=== PATIENT | female | born 1955 | race Caucasian/White ===

== ENCOUNTER 2017-03-18 13:56 | Observation (INO) | payer OTHER ==
[~2017-03-18] VITALS: Ht 167.6 cm; Wt 47.9 kg
[~2017-03-18 13:56] MED LIST: ASPI325T39 PO; DIAZ-165 PO; DTR5 PO; HYCUDL5 PO; IBUP-1050 PO; NRV/5 PO
[2017-03-18 15:50] VITALS: BP 103/65; PULSE 68; Ht 167.6 cm; Wt 47.9 kg
[2017-03-18] MEDS ORDERED: ACETAMINOPHEN 325 MG TAB PO PRN (16:00)
[2017-03-18] MEDS ORDERED: ONDANSETRON INJ 2 MG/ML 2 ML VIAL IV PRN (16:00)
[2017-03-18 16:35] LABS: HEMATOCRIT 37.5 % (37-47); MEAN CELL VOLUME 90.6 fL (80-100); MEAN CORPUSCULAR HEMOGLOBIN 30.7 pg (25-34); MEAN CORPUSCULAR HGB CONC 33.9 g/dl (32-36); MEAN PLATELET VOLUME 10.1 fL (7.4-10.4); PLATELET COUNT 279 K/uL (130-400); RED BLOOD COUNT 4.14 M/uL (4.2-5.4); WHITE BLOOD COUNT 5.36 K/uL (4.8-10.8)
[2017-03-18] MEDS: SODIUM CHLORIDE 0.9% 1000ML 1,000 ML IV SCH (16:40)
[2017-03-18 16:57] LABS: BUN/CREATININE RATIO 55.7 (10-20); CALCIUM 9.7 mg/dl (8.5-10.1); CREATININE 0.46 mg/dl (0.60-1.20)
[2017-03-18] MEDS ORDERED: LAVAGE SOLUTION 4000ML PO SCH (17:30)
[2017-03-18] MEDS ORDERED: VITACAP26 PO (19:23)
[2017-03-18] MEDS ORDERED: CHOL1CAP67 PO (19:23)
[2017-03-18] MEDS ORDERED: OMEG10007 PO (19:23)
[2017-03-18] MEDS ORDERED: GLUCTAB7 PO (19:23)
[2017-03-18] MEDS ORDERED: DIAZEPAM 5MG TAB PO PRN (19:30)
--- NOTE | 2017-03-18 20:14 | History and Physical ---
History & Physical Date & Time of Service: Mar 18, 2017 at 16:33 Chief Complaint: Colon Cancer Primary Care Physician: Alisha Plaza M.D. History of Present Illness Source: patient, spouse Pt is 61 y/o F with PMH MS, colon CA presents as direct admission for colonoscopy prep. Pt is scheduled for colonoscopy tomorrow morning. Reports didn 't tolerate prep well in past. Pt wheelchair bound secondary to MS. Hx chronic LE edema, no hx CHF. Denies any current complaints. Has been on clear fluids since yesterday. Denies fever/chills, diaphoresis, N/V/D/C, melena, hematochezia , CRAFT, dizziness, syncope, vision changes, neck pain, CP, SOB, orthopnea, palpitations, cough, sore throat, choking, rhinorrhea, abdominal pain, paresthesias, worsening extremity weakness, rashes, urinary symptoms. Past Medical/Surgical History Medical Problems: (1) Cecal cancer Status: Chronic (2) Hypokalemia Status: Resolved (3) Pneumonia Status: Resolved Surgical Problems: (1) History of partial colectomy Permanent Comment: 2012 - [facility] [place] Dr Osman Lr Status: Resolved (2) Hx of appendectomy Status: Resolved (3) Hx of tubal ligation Status: Resolved Family History FH: CAD (coronary artery disease) MOTHER (angioplasty age 62) FH: cancer FATHER (colon, liver, prostate) Hypertension MOTHER Stroke GRANDMOTHER Social History Smoking Status: Never Smoker Smokeless Tobacco Use: No Alcohol Use: none Drug Use: none Marital Status: Housing status: lives with significant other Occupational Status: disabled Immunizations History of Influenza Vaccine: No History of Tetanus Vaccine?: Yes History of Pneumococcal: No History of Hepatitis B Vaccine: No Multi-Drug Resistant Organisms History of MDRO: No Allergies Coded Allergies: Statins (Verified Allergy, Mild, SHORTNESS OF BREATH, 01/24/16) CHEPE Inhibitors (Unverified Allergy, Unknown, SHORTNESS OF BREATH, 01/24/16 ) PT DOES NOT THINK STATINS WAS A ALLERGY Penicillins (Verified Allergy, Unknown, 01/24/16) Home Medications Scheduled Amlodipine Besylate (Amlodipine Besylate), 5 MG PO DAILY Cholecalciferol (Vitamin D-3), 1 CAP PO DAILY Dheyccisisf-Jmjgfzbmgwp-Mib C- (Glucosamine Chondroitin), 500 MG PO DAILY Ibuprofen (Advil), 200 MG PO DAILY Oxybutynin Chloride (Oxybutynin Chloride), 5 MG PO QID Vitamins C & E (Vitamin C), 1,000 MG PO DAILY Scheduled PRN Diazepam (Valium), 5 MG PO TID PRN for SPASCITY Miscellaneous Medications Fish Oil ([place]-3), 1 CAP PO Review of Systems Constitutional: + weakness (Hx MS), No fever, No chills, No sweats, No weight loss, No problem reported Eyes: No worsening of vision, No eye pain, No redness ENT: No unusual epistaxis, No nasal symptoms, No sore throat, No trouble swallowing Respiratory: No cough, No sputum, No wheezing, No shortness of breath Cardiovascular: No chest pain, No orthopnea, No PND Abdomen: No pain, No nausea, No vomiting, No diarrhea, No constipation Psychiatric: + insomnia, No depression symptoms, No anxiety Endocrine: No excessive thirst Hematologic / Lymphatic: + problem reported, No abnormal bleeding/bruising, No clotting problems Integumentary: + color change, No rash, No itch Physical Exam Vital Signs Date Time Temp Pulse Resp B/P (MAP) Pulse Ox O2 Delivery O2 Flow Rate FiO2 03/18/17 15:50 68 18 103/65 Room Air 97 General Appearance: WD/WN, no apparent distress Head: normocephalic, atraumatic Eyes: normal inspection, sclerae normal ENT: hearing grossly normal, pharynx normal Neck: supple, no JVD, trachea midline Respiratory/Chest: chest non-tender, lungs clear, normal breath sounds, no respiratory distress, no accessory muscle use Cardiovascular: regular rate, rhythm, no murmur, normal peripheral pulses Abdomen/GI: normal bowel sounds, non tender, soft Extremities/Musculoskelatal: normal capillary refill, + pedal edema (moderate to bilateral lower extremities, non-tender), + pertinent finding (limited ROM R arm and bilateral lower extremities) Neurologic/Psych: alert, normal mood/affect, oriented x 3 Skin: normal color, warm/dry Diagnostics Laboratory Results Last 24 Hours Test 03/18/17 16:17 White Blood Count 5.36 K/uL Red Blood Count 4.14 M/uL Hemoglobin 12.7 g/dL Hematocrit 37.5 % Mean Corpuscular Volume 90.6 fL Mean Corpuscular Hemoglobin 30.7 pg Mean Corpuscular Hemoglobin Concent 33.9 g/dl RDW Standard Deviation 50.8 fL RDW Coefficient of Variation 15.5 % Platelet Count 279 K/uL Mean Platelet Volume 10.1 fL Sodium Level 143 mmol/L Potassium Level 4.0 mmol/L Chloride Level 107 mmol/L Carbon Dioxide Level 29 mmol/L Anion Gap 7.0 mmol/L Blood Urea Nitrogen 26 mg/dl Creatinine 0.46 mg/dl Est Creatinine Clear Calc Drug Dose 100.6 ml/min Estimated GFR () 122.7 Estimated GFR (Non- 105.9 BUN/Creatinine Ratio 55.7 Random Glucose 81 mg/dl Calcium Level 9.7 mg/dl Hepatitis C Antibody Screen NEG Impression Assessment and Plan HX CECAL CA - COLONOSCOPY PREP Pt with hx intolerance to colonoscopy prep in past and hx MS. Colonoscopy prep in hospital today with colonoscopy scheduled for tomorrow with Dr Washington. -clear liquids today & NPO after midnight -Golytely prep -Fleet enema in am prior to colonoscopy if rectal effluent is not clear -NSS @ 75ml/hr MULTIPLE SCLEROSIS -continue Valium prn spasticity DVT PROPHYLAXIS -SCD DISPOSITION -admit obs med/surg -Full Code as per discussion with pt -Follows with Dr Plaza for routine care Pt was seen with Dr Pearl. See addendum ADDENDUM: This is a 61 year old female with a PMH of MS, cecal CA presents for a planned colonoscopy. She was brought in for bowel prep to monitor for weakness or MS flare. No other symptoms at this time Go-lytely started give IVFs enema PRN in AM if not clear plan for colonoscopy in AM, GI consulted Level of Care Med/Surg Advanced Directives Existing Living Will: Yes Existing Power of Wildlife Photographer: Yes Resuscitation Status FULL RESUSCITATION VTE Prophylaxis VTE Risk Assessment Done? Y/N: Yes Risk Level: Moderate Given or contraindicated: SCD's Additional Copies To Alisha Plaza M.D.
[2017-03-18 20:21] VITALS: BP 111/76; PULSE 72; O2SAT 98
[2017-03-18] MEDS: OXYBUTYNIN CHLORIDE 5 MG TAB PO SCH (20:46)
[2017-03-18] MEDS ORDERED: IV FLUIDS COMPLETED PRN (21:00)
[2017-03-18 23:31] VITALS: BP 115/72; PULSE 74; TEMP 36.5; O2SAT 98
[2017-03-19 04:05] VITALS: BP 109/70; PULSE 79; TEMP 36.3; O2SAT 96
[2017-03-19] MEDS ORDERED: SOD PHOSPHATE/SOD BIPHOSPHATE ENEMA 132 ML BTL PR PRN (05:00)
[2017-03-19] MEDS: SODIUM CHLORIDE 0.9% 1000ML 1,000 ML IV SCH (06:24)
[2017-03-19 07:24] VITALS: BP 117/73; PULSE 81; TEMP 36.4; O2SAT 95
[2017-03-19] MEDS ORDERED: SOD PHOSPHATE/SOD BIPHOSPHATE ENEMA 132 ML BTL PR STA (08:50)
--- NOTE | 2017-03-19 09:11 | Progress Note ---
Progress Note Date of Service Mar 19, 2017. Progress Note GI was to complete a colonoscopy today. Less than 1/4 of PO prep was consumed. Had one enema with formed stools this AM. Pt had another enema at 1000 with formed stool. No plan for colonoscopy today as pt is having formed stools. Pt was specifically admitted for a colonoscopy prep arranged through her PCP. GI can perform colonoscopy when the patient is adequately prepped for procedure. Will defer to the hospitalist team how they wish to proceed with admission. ALISTAIR Ardon
[2017-03-19] MEDS: OXYBUTYNIN CHLORIDE 5 MG TAB PO SCH ×4 (09:29→20:16)
[2017-03-19] MEDS: AMLODIPINE BESYLATE 5 MG TAB PO SCH (09:29)
[2017-03-19 10:57] VITALS: BP 117/73; PULSE 75; TEMP 36.4; O2SAT 97
--- NOTE | 2017-03-19 13:27 | Progress Note ---
Internal Med Progress Note Date of Service: Mar 19, 2017. 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 ASSESSMENT & PLAN: HX CECAL CA - COLONOSCOPY PREP Pt with hx intolerance to colonoscopy prep in past and hx MS. Colonoscopy prep in hospital today with colonoscopy scheduled for tomorrow with Dr Washington. -clear liquids today & NPO after midnight -Golytely prep was given -Fleet enema in am prior to colonoscopy if rectal effluent is not clear -NSS @ 75ml/hr -preparation was not good enough -colonoscopy deferred for today 03/19 -will get the appropriate preparation today and likely scope tomorrow MULTIPLE SCLEROSIS -continue Valium prn spasticity -wheelchair bound -no acute symptoms DVT PROPHYLAXIS -SCD DISPOSITION -admit obs med/surg -Full Code as per discussion with pt -Follows with Dr Plaza for routine care Vital Signs: Date Time Temp Pulse Resp B/P (MAP) Pulse Ox O2 Delivery O2 Flow Rate FiO2 03/19/17 10:57 36.4 75 18 117/73 (88) 97 03/19/17 07:52 Room Air 03/19/17 07:24 36.4 81 16 117/73 (88) 95 Room Air 03/19/17 04:05 36.3 79 18 109/70 (83) 96 Room Air 03/19/17 00:05 Room Air 03/18/17 23:31 36.5 74 18 115/72 (86) 98 Room Air 03/18/17 20:21 72 18 111/76 (88) 98 Room Air 03/18/17 16:00 Room Air 03/18/17 15:50 68 18 103/65 Room Air 97 Lab Results: Results Past 24 Hours Test 03/18/17 16:17 Range/Units White Blood Count 5.36 4.8-10.8 K/uL Red Blood Count 4.14 4.2-5.4 M/uL Hemoglobin 12.7 12.0-16.0 g/dL Hematocrit 37.5 37-47 % Mean Corpuscular Volume 90.6 80-100 fL Mean Corpuscular Hemoglobin 30.7 25-34 pg Mean Corpuscular Hemoglobin Concent 33.9 32-36 g/dl RDW Standard Deviation 50.8 36.4-46.3 fL RDW Coefficient of Variation 15.5 11.5-14.5 % Platelet Count 279 130-400 K/uL Mean Platelet Volume 10.1 7.4-10.4 fL Sodium Level 143 136-145 mmol/L Potassium Level 4.0 3.5-5.1 mmol/L Chloride Level 107 98-107 mmol/L Carbon Dioxide Level 29 21-32 mmol/L Anion Gap 7.0 3-11 mmol/L Blood Urea Nitrogen 26 7-18 mg/dl Creatinine 0.46 0.60-1.20 mg/dl Est Creatinine Clear Calc Drug Dose 100.6 ml/min Estimated GFR () 122.7 Estimated GFR (Non- 105.9 BUN/Creatinine Ratio 55.7 10-20 Random Glucose 81 70-99 mg/dl Calcium Level 9.7 8.5-10.1 mg/dl Hepatitis C Antibody Screen NEG NEG
[2017-03-19] MEDS ORDERED: BISACODYL 5 MG TABEC PO ONE ×2 (15:00→17:00)
[2017-03-19] MEDS ORDERED: LAVAGE SOLUTION 4000ML PO SCH (15:00)
[2017-03-19 15:41] VITALS: BP 136/78; PULSE 85; TEMP 36.2; O2SAT 97
[2017-03-19] MEDS ORDERED: POLYETHYLENE (MIRALAX) 17 GM PACK PO ONE (17:00)
[2017-03-19 20:49] VITALS: BP 132/80; PULSE 88; O2SAT 96
[2017-03-19] MEDS ORDERED: D5W AND 1/2NSS 1,000 ML IV SCH (21:30)
[2017-03-19 23:47] VITALS: BP 113/69; PULSE 92; TEMP 36.4; O2SAT 97
[2017-03-20 03:17] VITALS: BP 126/72; PULSE 82; TEMP 36.5; O2SAT 95
[2017-03-20] MEDS ORDERED: POLYETHYLENE (MIRALAX) 17 GM PACK PO ONE (05:00)
[2017-03-20 07:28] VITALS: BP 99/62; PULSE 79; TEMP 36.4; O2SAT 98
[2017-03-20] MEDS: OXYBUTYNIN CHLORIDE 5 MG TAB PO SCH ×2 (08:00→11:51)
--- NOTE | 2017-03-20 09:01 | Endo History and Physical ---
History & Physical Date of Service: Mar 20, 2017. Chief Complaint: history of colon cancer Referring Physician: Dr. Plaza History of Present Illness h/o colon cancer cecum 2012 - s/p resection Past Medical History MS Past Surgical History Hx Cardiac Surgery: No Hx Abdominal Surgery: Yes (appy; tubal) Hx Post-Op Nausea and Vomiting: No Hx Cancer Surgery: No Hx Thoracic Surgery: No Hx Orthopedic: No Hx Urinary Tract Surgery: No Family History Colon CA father Social History Smoking Status: Never Smoker Smokeless Tobacco Use: No Hx Substance Use: Yes Hx Alcohol Use: No Allergies Coded Allergies: Statins (Verified Allergy, Mild, SHORTNESS OF BREATH, 01/24/16) CHEPE Inhibitors (Unverified Allergy, Unknown, SHORTNESS OF BREATH, 01/24/16 ) PT DOES NOT THINK STATINS WAS A ALLERGY Penicillins (Verified Allergy, Unknown, 01/24/16) Current Medications Reported Home Medications Medications Dose Route/Sig Max Daily Dose Days Date Category Glucosamine Chondroitin (Myvenlyfsdf-Qkpkxrhlcoj-Hbc C-) 1 Tab Tab 500 Mg PO DAILY 03/18/17 Reported Vitamin D-3 (Cholecalciferol) 1,000 Unit Cap 1 Cap PO DAILY 03/18/17 Reported Vitamin C (Vitamins C & E) 1 Cap Cap 1,000 Mg PO DAILY 03/18/17 Reported [place]-3 (Fish Oil) 1 Ea Cap 1 Cap PO 03/18/17 Reported Advil (Ibuprofen) 200 Mg Tab 200 Mg PO DAILY 01/24/16 Reported Amlodipine Besylate 5 Mg Tab 5 Mg PO DAILY 04/13/14 Reported Oxybutynin Chloride 5 Mg Tab 5 Mg PO QID 04/13/14 Reported Valium (Diazepam) 5 Mg Tab 5 Mg PO TID PRN 05/19/07 Reported Vital Signs Weight (Kilograms): 47.900 Height (Feet): 5 Height (Inches): 6.00 Date Time Temp Pulse Resp B/P (MAP) Pulse Ox O2 Delivery O2 Flow Rate FiO2 03/20/17 08:56 36.5 82 20 112/64 (80) 93 Room Air 03/20/17 07:28 36.4 79 18 99/62 (74) 98 03/20/17 03:17 36.5 82 18 126/72 (90) 95 Room Air 03/20/17 00:00 Room Air 03/19/17 23:47 36.4 92 20 113/69 (84) 97 Room Air 03/19/17 20:49 88 18 132/80 (97) 96 Room Air 03/19/17 16:15 Room Air 03/19/17 15:41 36.2 85 18 136/78 (97) 97 Room Air 03/19/17 10:57 36.4 75 18 117/73 (88) 97 Physical Exam General Appearance: WD/WN, no apparent distress Assessment and Plan Colonoscopy today
[2017-03-20] MEDS ORDERED: ATROPINE SULFATE 0.1 MG/ML 5ML SYR IV PRN (09:30)
[2017-03-20] MEDS ORDERED: LIDOCAINE HCL 2% 2 ML VIAL (20MG/ML) ONE (09:30)
[2017-03-20] MEDS ORDERED: EpHEDrine SULFATE INJ 50 MG/ML AMP IV PRN (09:30)
[2017-03-20] MEDS ORDERED: PROPOFOL IV EMULSION 10 MG/ML 20 ML VIAL IV ONE (09:30)
--- NOTE | 2017-03-20 09:38 | GI REPORT ---
Procedure Date: 03/20/2017 9:12 AM Procedure: Colonoscopy Indications: High risk colon cancer surveillance: Personal history of colon cancer in cecum 2012 s/p resection, Family history of colon cancer in parent Medicines: Propofol per Anesthesia Complications: No immediate complications. Estimated blood loss: None. Estimated Blood Loss: Estimated blood loss: none. Procedure: Pre-Anesthesia Assessment: - Prior to the procedure, a History and Physical was performed, and patient medications, allergies and sensitivities were reviewed. The patient's tolerance of previous anesthesia was reviewed. - The risks and benefits of the procedure and the sedation options and risks were discussed with the patient. All questions were answered and informed consent was obtained. - Patient identification and proposed procedure were verified prior to the procedure by the physician and the nurse. The procedure was verified in the pre-procedure area in the procedure room. - Mental Status Examination: alert and oriented. Airway Examination: normal oropharyngeal airway and neck mobility. Respiratory Examination: clear to auscultation. CV Examination: normal. Abdominal Examination: bowel sounds present, abdomen soft and non-tender, no masses or organomegaly noted. - ASA Grade Assessment: IV - A patient with severe systemic disease that is a constant threat to life. After I obtained informed consent, the scope was passed under direct vision. Throughout the procedure, the patient's blood pressure, pulse, and oxygen saturations were monitored continuously. The scope was introduced through the anus and advanced to the ileocolonic anastomosis. The colonoscopy was performed without difficulty. The patient tolerated the procedure well. The quality of the bowel preparation was good. Findings: The perianal and digital rectal examinations were normal. Pertinent negatives include normal sphincter tone and no palpable rectal lesions. The maria guadalupe-terminal ileum appeared normal. There was evidence of a prior end-to-side ileo-colonic anastomosis in the ascending colon. This was patent and was characterized by visible sutures. The anastomosis was traversed. The exam was otherwise without abnormality. The retroflexed view of the distal rectum and anal verge was normal and showed no anal or rectal abnormalities. Impression: - The examined portion of the ileum was normal. - Patent end-to-side ileo-colonic anastomosis, characterized by visible sutures. - The examination was otherwise normal. - The distal rectum and anal verge are normal on retroflexion view. - No specimens collected. Recommendation: - Repeat colonoscopy in 3 years for surveillance. - Return to referring physician as previously scheduled. - Discharge patient to home. Portia T. Suvock, D.O. Portia Washington, 03/20/2017 9:37:59 AM This report has been signed electronically. Note Initiated On: 03/20/2017 9:12 AM I attest to the content of the Intraoperative Record and orders documented therein, exceptions below
--- NOTE | 2017-03-20 09:44 | Anesthesiology Progress Note ---
Anesthesia Post Op Note Date & Time Mar 20, 2017 at 09:44 Vital Signs Pain Intensity: 0 Vital Signs Past 12 Hours Date Time Temp Pulse Resp B/P (MAP) Pulse Ox O2 Delivery O2 Flow Rate FiO2 03/20/17 09:29 74 20 99/61 (74) 97 Room Air 03/20/17 08:56 36.5 82 20 112/64 (80) 93 Room Air 03/20/17 08:30 Room Air 97 03/20/17 07:28 36.4 79 18 99/62 (74) 98 03/20/17 03:17 36.5 82 18 126/72 (90) 95 Room Air 03/20/17 00:00 Room Air 03/19/17 23:47 36.4 92 20 113/69 (84) 97 Room Air Notes Mental Status: alert / awake / arousable, participated in evaluation Pt Amnestic to Procedure: Yes Nausea / Vomiting: adequately controlled Pain: adequately controlled Airway Patency, RR, SpO2: stable & adequate BP & HR: stable & adequate Hydration State: stable & adequate Anesthetic Complications: no major complications apparent
[2017-03-20 10:08] VITALS: BP 123/77; PULSE 77; TEMP 36.4; O2SAT 94
[2017-03-20 11:19] VITALS: BP 124/76; PULSE 78; TEMP 36.4; O2SAT 95
--- NOTE | 2017-03-20 11:34 | Progress Note ---
Internal Med Progress Note Date of Service: Mar 20, 2017. 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 ASSESSMENT & PLAN: HX CECAL CA - COLONOSCOPY PREP Pt with hx intolerance to colonoscopy prep in past and hx MS. Colonoscopy prep in hospital today with colonoscopy scheduled for tomorrow with Dr Washington. -clear liquids today & NPO after midnight -Golytely prep was given -Fleet enema in am prior to colonoscopy if rectal effluent is not clear -NSS @ 75ml/hr -preparation was not good enough -colonoscopy deferred for today 03/19 -will get the appropriate preparation today and likely scope tomorrow -S/P Colonoscopy ::Negative for any Polyps /bleeding -repeat Colonoscopy in 3 years -tolerating diet -will discharge home today -discussed with the MULTIPLE SCLEROSIS -continue Valium prn spasticity -wheelchair bound -no acute symptoms DVT PROPHYLAXIS -SCD DISPOSITION -admit obs med/surg -Full Code as per discussion with pt -Follows with Dr Plaza for routine care-appointment made -Discharge home today Vital Signs: Date Time Temp Pulse Resp B/P (MAP) Pulse Ox O2 Delivery O2 Flow Rate FiO2 03/20/17 11:19 36.4 78 18 124/76 (92) 95 03/20/17 10:08 36.4 77 18 123/77 (92) 94 03/20/17 09:44 75 20 118/75 (89) 95 Room Air 03/20/17 09:29 74 20 99/61 (74) 97 Room Air 03/20/17 08:56 36.5 82 20 112/64 (80) 93 Room Air 03/20/17 08:30 Room Air 97 03/20/17 07:28 36.4 79 18 99/62 (74) 98 03/20/17 03:17 36.5 82 18 126/72 (90) 95 Room Air 03/20/17 00:00 Room Air 03/19/17 23:47 36.4 92 20 113/69 (84) 97 Room Air 03/19/17 20:49 88 18 132/80 (97) 96 Room Air 03/19/17 16:15 Room Air 03/19/17 15:41 36.2 85 18 136/78 (97) 97 Room Air
--- NOTE | 2017-03-20 11:37 | Discharge Instructions ---
Discharge Instructions Date of Service Mar 20, 2017. Admission Reason for Admission: Colon Cancer Discharge Discharge Diagnosis / Problem: H/O Ca Colon s/o Colonoscopy Discharge Goals Goal(s): Prevent Disease Progression Activity Recommendations Activity Limitations: resume your previous activity . Instructions / Follow-Up Instructions / Follow-Up Dr Plaza on 03/25/17 at 10:25AM Current Hospital Diet Patient's current hospital diet: Regular Diet Discharge Diet Recommended Diet: Regular Diet Procedures Procedures Performed: COLONOSCOPY Pending Studies Studies pending at discharge: no Medical Emergencies . Who to Call and When: Medical Emergencies: If at any time you feel your situation is an emergency, please call 911 immediately. . Non-Emergent Contact Non-Emergency issues call your: Primary Care Provider . Past History Medical & Surgical History: (1) Multiple sclerosis (2) Cecal cancer (3) Colonoscopy planned . "Provider Documentation" section prepared by Barbie Hernandez. . VTE Core Measure Inpt VTE Proph given/why not?: SCD's
[2017-03-20 11:40] VITALS: BP 124/76; PULSE 78; TEMP 36.4; O2SAT 95
[2017-03-20] MEDS: AMLODIPINE BESYLATE 5 MG TAB PO SCH (11:51)
--- NOTE | 2017-03-21 07:49 | Discharge Summary ---
Discharge Summary Date of Service Mar 21, 2017. Discharge Summary Admission Date: Mar 18, 2017 at 15:02 Discharge Date: Mar 20, 2017 Discharge Disposition: Home Principal Diagnosis: H/O Ca Colon s/o Colonoscopy Secondary Diagnoses/Problems: Please see H&P and Hospital progress note Procedures: Colonoscopy Consultations: GI Medication Reconciliation Continued Medications: Amlodipine Besylate (Amlodipine Besylate) 5 Mg Tab 5 MG PO DAILY, #90 Cholecalciferol (Vitamin D-3) 1,000 Unit Cap 1 CAP PO DAILY Diazepam (Valium) 5 Mg Tab 5 MG PO TID PRN for SPASCITY, 0 Refills Fish Oil ([place]-3) 1 Ea Cap 1 CAP PO, CAP Stpgwcprlhv-Qaqgqnworvy-Joa C- (Glucosamine Chondroitin) 1 Tab Tab 500 MG PO DAILY Ibuprofen (Advil) 200 Mg Tab 200 MG PO DAILY, TAB Oxybutynin Chloride (Oxybutynin Chloride) 5 Mg Tab 5 MG PO QID, #360 Vitamins C & E (Vitamin C) 1 Cap Cap 1000 MG PO DAILY Admission Information HPI (per Admitting provider): Pt is 61 y/o F with PMH MS, colon CA presents as direct admission for colonoscopy prep. Pt is scheduled for colonoscopy tomorrow morning. Reports didn 't tolerate prep well in past. Pt wheelchair bound secondary to MS. Hx chronic LE edema, no hx CHF. Denies any current complaints. Has been on clear fluids since yesterday. Denies fever/chills, diaphoresis, N/V/D/C, melena, hematochezia , CRAFT, dizziness, syncope, vision changes, neck pain, CP, SOB, orthopnea, palpitations, cough, sore throat, choking, rhinorrhea, abdominal pain, paresthesias, worsening extremity weakness, rashes, urinary symptoms. Past Medical/Surgical History Medical Problems: (1) Cecal cancer Status: Chronic (2) Hypokalemia Status: Resolved (3) Pneumonia Status: Resolved Surgical Problems: (1) History of partial colectomy Permanent Comment: 2012 - [facility] [place] Dr Osman Lr Status: Resolved (2) Hx of appendectomy Status: Resolved (3) Hx of tubal ligation Status: Resolved Family History FH: CAD (coronary artery disease) MOTHER (angioplasty age 62) FH: cancer FATHER (colon, liver, prostate) Hypertension MOTHER Stroke GRANDMOTHER Social History Smoking Status: Never Smoker Smokeless Tobacco Use: No Alcohol Use: none Drug Use: none Marital Status: Housing status: lives with significant other Occupational Status: disabled Immunizations History of Influenza Vaccine: No History of Tetanus Vaccine?: Yes History of Pneumococcal: No History of Hepatitis B Vaccine: No Multi-Drug Resistant Organisms History of MDRO: No Allergies Coded Allergies: Statins (Verified Allergy, Mild, SHORTNESS OF BREATH, 01/24/16) CHEPE Inhibitors (Unverified Allergy, Unknown, SHORTNESS OF BREATH, 01/24/16 ) PT DOES NOT THINK STATINS WAS A ALLERGY Penicillins (Verified Allergy, Unknown, 01/24/16) Home Medications Scheduled Amlodipine Besylate (Amlodipine Besylate), 5 MG PO DAILY Cholecalciferol (Vitamin D-3), 1 CAP PO DAILY Hxskhcxijxu-Hmvzsjjupaf-Ohp C- (Glucosamine Chondroitin), 500 MG PO DAILY Ibuprofen (Advil), 200 MG PO DAILY Oxybutynin Chloride (Oxybutynin Chloride), 5 MG PO QID Vitamins C & E (Vitamin C), 1,000 MG PO DAILY Scheduled PRN Diazepam (Valium), 5 MG PO TID PRN for SPASCITY Miscellaneous Medications Fish Oil ([place]-3), 1 CAP PO Review of Systems Constitutional: + weakness (Hx MS), No fever, No chills, No sweats, No weight loss, No problem reported Eyes: No worsening of vision, No eye pain, No redness ENT: No unusual epistaxis, No nasal symptoms, No sore throat, No trouble swallowing Respiratory: No cough, No sputum, No wheezing, No shortness of breath Cardiovascular: No chest pain, No orthopnea, No PND Abdomen: No pain, No nausea, No vomiting, No diarrhea, No constipation Psychiatric: + insomnia, No depression symptoms, No anxiety Endocrine: No excessive thirst Hematologic / Lymphatic: + problem reported, No abnormal bleeding/bruising, No clotting problems Integumentary: + color change, No rash, No itch Physical Ex - H&P Physical Exam Vital Signs Date Time Temp Pulse Resp B/P (MAP) Pulse Ox O2 Delivery O2 Flow Rate FiO2 03/18/17 15:50 68 18 103/65 Room Air 97 General Appearance: WD/WN, no apparent distress Head: normocephalic, atraumatic Eyes: normal inspection, sclerae normal ENT: hearing grossly normal, pharynx normal Neck: supple, no JVD, trachea midline Respiratory/Chest: chest non-tender, lungs clear, normal breath sounds, no respiratory distress, no accessory muscle use Cardiovascular: regular rate, rhythm, no murmur, normal peripheral pulses Abdomen/GI: normal bowel sounds, non tender, soft Extremities/Musculoskelatal: normal capillary refill, + pedal edema (moderate to bilateral lower extremities, non-tender), + pertinent finding (limited ROM R arm and bilateral lower extremities) Neurologic/Psych: alert, normal mood/affect, oriented x 3 Skin: normal color, warm/dry Diagnostics - H&P Diagnostics Laboratory Results Last 24 Hours Test 03/18/17 16:17 White Blood Count 5.36 K/uL Red Blood Count 4.14 M/uL Hemoglobin 12.7 g/dL Hematocrit 37.5 % Mean Corpuscular Volume 90.6 fL Mean Corpuscular Hemoglobin 30.7 pg Mean Corpuscular Hemoglobin Concent 33.9 g/dl RDW Standard Deviation 50.8 fL RDW Coefficient of Variation 15.5 % Platelet Count 279 K/uL Mean Platelet Volume 10.1 fL Sodium Level 143 mmol/L Potassium Level 4.0 mmol/L Chloride Level 107 mmol/L Carbon Dioxide Level 29 mmol/L Anion Gap 7.0 mmol/L Blood Urea Nitrogen 26 mg/dl Creatinine 0.46 mg/dl Est Creatinine Clear Calc Drug Dose 100.6 ml/min Estimated GFR () 122.7 Estimated GFR (Non- 105.9 BUN/Creatinine Ratio 55.7 Random Glucose 81 mg/dl Calcium Level 9.7 mg/dl Hepatitis C Antibody Screen NEG Impression - H&P Impression Assessment and Plan HX CECAL CA - COLONOSCOPY PREP Pt with hx intolerance to colonoscopy prep in past and hx MS. Colonoscopy prep in hospital today with colonoscopy scheduled for tomorrow with Dr Washington. -clear liquids today & NPO after midnight -Golytely prep -Fleet enema in am prior to colonoscopy if rectal effluent is not clear -NSS @ 75ml/hr MULTIPLE SCLEROSIS -continue Valium prn spasticity DVT PROPHYLAXIS -SCD DISPOSITION -admit obs med/surg -Full Code as per discussion with pt -Follows with Dr Plaza for routine care Pt was seen with Dr Pearl. See addendum ADDENDUM: This is a 61 year old female with a PMH of MS, cecal CA presents for a planned colonoscopy. She was brought in for bowel prep to monitor for weakness or MS flare. No other symptoms at this time Go-lytely started give IVFs enema PRN in AM if not clear plan for colonoscopy in AM, GI consulted Level of Care Med/Surg Advanced Directives Existing Living Will: Yes Existing Power of Attorney Recruiter: Yes Resuscitation Status FULL RESUSCITATION VTE Prophylaxis VTE Risk Assessment Done? Y/N: Yes Risk Level: Moderate Given or contraindicated: SCD's Additional Copies To Alisha Plaza M.D. Physical Exam (per Admitting): General Appearance: WD/WN, no apparent distress Head: normocephalic, atraumatic Eyes: normal inspection, sclerae normal ENT: hearing grossly normal, pharynx normal Neck: supple, no JVD, trachea midline Respiratory/Chest: chest non-tender, lungs clear, normal breath sounds, no respiratory distress, no accessory muscle use Cardiovascular: regular rate, rhythm, no murmur, normal peripheral pulses Abdomen/GI: normal bowel sounds, non tender, soft Extremities/Musculoskelatal: normal capillary refill, + pedal edema ( moderate to bilateral lower extremities, non-tender), + pertinent finding ( limited ROM R arm and bilateral lower extremities) Neurologic/Psych: alert, normal mood/affect, oriented x 3 Skin: normal color, warm/dry Hospital Course HX CECAL CA - COLONOSCOPY PREP Pt with hx intolerance to colonoscopy prep in past and hx MS. Colonoscopy prep in hospital today with colonoscopy scheduled for tomorrow with Dr Washington. -clear liquids today & NPO after midnight -Golytely prep was given -Fleet enema in am prior to colonoscopy if rectal effluent is not clear -NSS @ 75ml/hr -preparation was not good enough -colonoscopy deferred for today 03/19 -will get the appropriate preparation today and likely scope tomorrow -S/P Colonoscopy ::Negative for any Polyps /bleeding -repeat Colonoscopy in 3 years -tolerating diet -will discharge home today -discussed with the MULTIPLE SCLEROSIS -continue Valium prn spasticity -wheelchair bound -no acute symptoms DVT PROPHYLAXIS -SCD DISPOSITION -admit obs med/surg -Full Code as per discussion with pt -Follows with Dr Plaza for routine care-appointment made -Discharge home today Total time spent on discharge = 35 minutes This includes examination of the patient, discharge planning, medication reconciliation, and communication with other providers. Discharge Instructions Date of Service Mar 20, 2017. Admission Reason for Admission: Colon Cancer Discharge Discharge Diagnosis / Problem: H/O Ca Colon s/o Colonoscopy Discharge Goals Goal(s): Prevent Disease Progression Activity Recommendations Activity Limitations: resume your previous activity . Instructions / Follow-Up Instructions / Follow-Up Dr Plaza on 03/25/17 at 10:25AM Current Hospital Diet Patient's current hospital diet: Regular Diet Discharge Diet Recommended Diet: Regular Diet Procedures Procedures Performed: COLONOSCOPY Pending Studies Studies pending at discharge: no Medical Emergencies . Who to Call and When: Medical Emergencies: If at any time you feel your situation is an emergency, please call 911 immediately. . Non-Emergent Contact Non-Emergency issues call your: Primary Care Provider . Past History Medical & Surgical History: (1) Multiple sclerosis (2) Cecal cancer (3) Colonoscopy planned . "Provider Documentation" section prepared by Barbie Hernandez. . VTE Core Measure Inpt VTE Proph given/why not?: SCD's <Electronically signed by Barbie Hernandez M.D.> Signed: 03/20/17 [id number] Additional Copies To Alisha Plaza M.D.
== END 2017-03-20 15:00 | disposition home or self-care (01) ==
LOC: C.4E 15:02
PROVIDERS: ADMIT Family Medicine; ATTEND Internal Medicine
DX: Z12.11 Encounter for screening for malignant neoplasm of colon (principal); Z85.038 Personal history of other malignant neoplasm of large intestine; Z80.0 Family history of malignant neoplasm of digestive organs; Z98.0 Intestinal bypass and anastomosis status; G35 Multiple sclerosis; R60.0 Localized edema; Z79.899 Other long term (current) drug therapy

== ENCOUNTER 2017-07-14 11:46 | Inpatient (IN) | payer OTHER ==
[~2017-07-14] VITALS: Ht 165.1 cm; Wt 40.3 kg
[~2017-07-14 11:46] MED LIST changes: -ASPI325T39 PO; +CHOL1CAP67 PO; +GLUCTAB7 PO; -HYCUDL5 PO; +OMEG10007 PO; +VITACAP26 PO
[2017-07-14] MEDS ORDERED: PRENTAB26 PO (13:55)
[2017-07-14] MEDS ORDERED: SULF800T23 PO (13:55)
--- NOTE | 2017-07-14 15:11 | EMERGENCY ROOM VISIT NOTE ---
History First contact with patient: 14:22 Chief Complaint: URINARY SYMPTOMS Stated Complaint: UTI, VERY TIRED, NOT EATING OR DRINKING Nursing Triage Summary: found out she had uti on . taking antibiotics for uti. friday around 2pm took 1 dose of medical marijuana and has been lethargic since. hasnt wanted to eat or drink. hasnt taken anymore since that first dose History of Present Illness The patient is a 62 year old female with hx of MS (wheelchair bound) and recent UTI who presents to the Emergency Room with complaints of increased tiredness and decreased appetite x 4 days. Pt was diagnosed with UTI after pt appeared more confused to on last week. Pt was started on Bactrim by PCP. Pt took 3 doses and did not have any issues . The following day (Friday) she received her first dose of medical marijuana for MS and appeared more tired/ sleepy and not eating/drinking as much. PCP was called and pt was brought here for concern of dehydration. Denies sob, cp, n/v, abd pain, d/c, dysuria or increased urinary frequency (urinated at least 2 times in the past 24hrs). Of note: pt also having rhinorrhea of undetermined etiology x 1 month for which is taking OTC non-drowsy anti-histamine. Review of Systems see below Constitutional: No fever, No chills ENT: + nasal symptoms (rhinorrhea) Respiratory: No shortness of breath Cardiovascular: No chest pain Abdomen: + problem reported (decreased appetite ), No pain, No nausea, No vomiting, No diarrhea, No constipation Genitourinary - Female: No dysuria, No urinary frequency Neurologic: + problem reported (increased tiredness) Past Medical/Surgical History Medical Problems: (1) Cecal cancer (2) Colonoscopy planned (3) Hypokalemia (4) Pneumonia Surgical Problems: (1) History of partial colectomy (2) Hx of appendectomy (3) Hx of tubal ligation Family History FH: CAD (coronary artery disease) MOTHER (angioplasty age 62) FH: cancer FATHER (colon, liver, prostate) Hypertension MOTHER Stroke GRANDMOTHER Social History Smoking Status: Never Smoker Alcohol Use: occasionally Drug Use: none Marital Status: Housing Status: lives with family Occupation Status: disabled Current/Historical Medications Scheduled Amlodipine Besylate (Amlodipine Besylate), 5 MG PO DAILY Jxjqvfprajl-Hzijbbnhfta-Vio C- (Glucosamine Chondroitin), 500 MG PO DAILY Multivit/Min/Iron/Fol Ac/Pren ( Vitamin), 1 TAB PO DAILY Sulfa/Trimethoprim (Bactrim Ds 800MG/160MG), 1 TAB PO BID Scheduled PRN Diazepam (Valium), 5 MG PO TID PRN for SPASCITY Physical Exam Vital Signs Date Time Temp Pulse Resp B/P (MAP) Pulse Ox O2 Delivery O2 Flow Rate FiO2 07/14/17 17:01 87 16 115/74 93 Room Air 07/14/17 15:25 89 13 133/80 94 Room Air 07/14/17 14:16 87 9 92 07/14/17 14:01 131/77 07/14/17 13:47 90 07/14/17 13:46 89 17 94 07/14/17 13:43 91 18 133/80 93 Room Air 07/14/17 13:42 133/80 07/14/17 11:56 101 18 157/85 96 Room Air Physical Exam see below General Appearance: no apparent distress, + pertinent finding (tired appearing ) Head: normocephalic, atraumatic Eyes: normal inspection ENT: + nasal congestion (active nasal drainage) Respiratory/Chest: lungs clear, normal breath sounds Cardiovascular: regular rate, rhythm, no murmur Abdomen / GI: normal bowel sounds, non tender, soft Back: normal inspection, no CVA tenderness Extremities: no calf tenderness, no pedal edema Neurologic/Psych: alert, + pertinent finding (oriented to person, reports at [facility] (old hospital name), reports 2007 but knows its friday and july ) Medical Decision & Procedures Laboratory Results 07/14/17 15:25 Red Blood Count 4.15, Mean Corpuscular Volume 89.9, Mean Corpuscular Hemoglobin 32.0, Mean Corpuscular Hemoglobin Concent 35.7, Mean Platelet Volume 11.1, Neutrophils (%) (Auto) 77.5, Lymphocytes (%) (Auto) 15.3, Monocytes (%) (Auto) 6.8, Eosinophils (%) (Auto) 0.1, Basophils (%) (Auto) 0.1, Neutrophils # (Auto) 6.72, Lymphocytes # (Auto) 1.33, Monocytes # (Auto) 0.59, Eosinophils # (Auto) 0.01, Basophils # (Auto) 0.01 07/14/17 15:25 Test 07/14/17 15:25 07/14/17 15:39 07/14/17 15:45 White Blood Count 8.68 K/uL (4.8-10.8) Red Blood Count 4.15 M/uL (4.2-5.4) Hemoglobin 13.3 g/dL (12.0-16.0) Hematocrit 37.3 % (37-47) Mean Corpuscular Volume 89.9 fL (80-100) Mean Corpuscular Hemoglobin 32.0 pg (25-34) Mean Corpuscular Hemoglobin Concent 35.7 g/dl (32-36) Platelet Count 219 K/uL (130-400) Mean Platelet Volume 11.1 fL (7.4-10.4) Neutrophils (%) (Auto) 77.5 % Lymphocytes (%) (Auto) 15.3 % Monocytes (%) (Auto) 6.8 % Eosinophils (%) (Auto) 0.1 % Basophils (%) (Auto) 0.1 % Neutrophils # (Auto) 6.72 K/uL (1.4-6.5) Lymphocytes # (Auto) 1.33 K/uL (1.2-3.4) Monocytes # (Auto) 0.59 K/uL (0.11-0.59) Eosinophils # (Auto) 0.01 K/uL (0-0.5) Basophils # (Auto) 0.01 K/uL (0-0.2) RDW Standard Deviation 49.0 fL (36.4-46.3) RDW Coefficient of Variation 15.2 % (11.5-14.5) Immature Granulocyte % (Auto) 0.2 % Immature Granulocyte # (Auto) 0.02 K/uL (0.00-0.02) Anion Gap 8.0 mmol/L (3-11) Estimated GFR () 74.3 Estimated GFR (Non- 64.1 BUN/Creatinine Ratio 29.0 (10-20) Calcium Level 10.0 mg/dl (8.5-10.1) Total Bilirubin 0.3 mg/dl (0.2-1) Aspartate Amino Transf (AST/SGOT) 62 U/L (15-37) Alanine Aminotransferase (ALT/SGPT) 109 U/L (12-78) Alkaline Phosphatase 308 U/L (45-117) Total Protein 7.6 gm/dl (6.4-8.2) Albumin 3.1 gm/dl (3.4-5.0) Globulin 4.5 gm/dl (2.5-4.0) Albumin/Globulin Ratio 0.7 (0.9-2) Bedside Lactic Acid Venous 1.28 mmol/L (0.90-1.70) Urine Color YELLOW Urine Appearance TURBID (CLEAR) Urine pH 5.0 (4.5-7.5) Urine Specific [place] 1.021 (1.000-1.030) Urine Protein NEG (NEG) Urine Glucose (UA) NEG (NEG) Urine Ketones 3+ (NEG) Urine Occult Blood NEG (NEG) Urine Nitrite NEG (NEG) Urine Bilirubin NEG (NEG) Urine Urobilinogen NEG (NEG) Urine Leukocyte Esterase NEG (NEG) Urine WBC (Auto) 0 /hpf (0-5) Urine RBC (Auto) 0-4 /hpf (0-4) Urine Hyaline Casts (Auto) 0 /lpf (0-5) Urine Epithelial Cells (Auto) 0-5 /lpf (0-5) Urine Bacteria (Auto) NEG (NEG) Urine Crystals URIC ACID (NONE PRSENT) Medications Administered Medications (Trade) Dose Ordered Sig/Dari Route Start Time Stop Time Status Last Admin Dose Admin Sodium Chloride 1,000 ml @ 125 mls/hr Q8H IV 07/14/17 15:30 08/13/17 15:29 07/14/17 15:32 125 MLS/HR NS maintenance fluids 125cc/hr Medical Decision 62y/oF with hx of MS and recent E.coli UTI (being treated with bactrim - susceptible) presents with concern of decreased appetite (not eating or drinking ) and increased drowsiness/tiredness (sleeping more) x 4 days concerning for AMS in the setting of worsening UTI (unresponsive to Bactrim vs. progressive) vs. MS flare vs. head bleed vs. side effect of medical marijuana (less likely given usually increases appetite and pt has taken marijuana in the past without any side effects) or Bactrim (less likely given no other systemic symptoms such as n/v although Bactrim can cause decreased appetite). Of note: pt received 3 doses of Bactrim and 1 dose of medical marijuana prior to onset of symptoms. -PCP called: UCx grew E.coli 10-100k colonies susceptible to Bactrim -Ordered cath UA/Ucx - 3+ ketones consistent with dehydration -Ordered BCx x 2 - pending -Ordered POC lactate nl -Ordered CBC and CMP: BUN elevated at 27 and glucose 185; upward trending AST, ALT and alk phos (compared to previous LFT) concerning in the setting of previous colonic cancer and warrants further work up -Ordered CT head w/ot contrast: no hemorrhage, mass effect, or acute terrotorial ischemia -Started M-IVF NS 125cc/hr -5:17 spoke with inpatient hospitalist regarding admission for AMS of unknown etiology Medication Reconcilliation Current Medication List: was personally reviewed by me Blood Pressure Screening Patient's blood pressure: Normal blood pressure Impression Primary Impression: Multiple sclerosis Additional Impressions: Dehydration Hx: UTI (urinary tract infection) Departure Information Dispostion Admitted as an inpatient Condition FAIR Referrals Alisha Plaza M.D. (PCP) Patient Instructions My [facility] Problem Qualifiers
[2017-07-14] MEDS ORDERED: SODIUM CHLORIDE 0.9% 1000ML 1,000 ML IV SCH (15:30)
[2017-07-14 15:49] LABS: BASO % 0.1 %; BASO ABS # 0.01 K/uL (0-0.2); EOS % 0.1 %; EOS ABS # 0.01 K/uL (0-0.5); HEMATOCRIT 37.3 % (37-47); HEMOGLOBIN 13.3 g/dL (12.0-16.0); IG# 0.02 K/uL (0.00-0.02); LYMPH % 15.3 %; LYMPH ABS # 1.33 K/uL (1.2-3.4); MEAN CELL VOLUME 89.9 fL (80-100); MEAN CORPUSCULAR HGB CONC 35.7 g/dl (32-36); MEAN PLATELET VOLUME 11.1 fL (7.4-10.4); MONO % 6.8 %; MONO ABS # 0.59 K/uL (0.11-0.59); NEUT % 77.5 %; NEUT ABS # 6.72 K/uL (1.4-6.5); PLATELET COUNT 219 K/uL (130-400); RED CELL DISTRIBUTION WIDTH CV 15.2 % (11.5-14.5); WHITE BLOOD COUNT 8.68 K/uL (4.8-10.8)
[2017-07-14 16:12] LABS: ALBUMIN 3.1 gm/dl (3.4-5.0); ALT/SGPT 109 U/L (12-78); AST/SGOT 62 U/L (15-37); BLOOD UREA NITROGEN 27 mg/dl (7-18); CARBON DIOXIDE 28 mmol/L (21-32); CREATININE 0.94 mg/dl (0.60-1.20); GLUCOSE 185 mg/dl (70-99); POTASSIUM 4.1 mmol/L (3.5-5.1); SODIUM 137 mmol/L (136-145)
[2017-07-14 16:15] LABS: ALKALINE PHOSPHATASE 308 U/L (45-117); TOTAL PROTEIN 7.6 gm/dl (6.4-8.2)
--- NOTE | 2017-07-14 16:47 | EMERGENCY ROOM VISIT NOTE ---
ED Visit Note First contact with patient: 14:21 Patient seen and examined at bedside after discussion with the resident. Patient with no focal complaints during my exam, awake and cooperative able to relate additional history. Awaiting labs and imaging at the time of my exam. Patient with some confusion here noted on exam. Patient able to answer basic questions at bedside during my assessment. Patient hemodynamically stable. The resident was able to obtain records from the recent outpatient urinalysis as well as culture results. It did show that the specimen was sensitive to Bactrim. Patient states she has been compliant with her Bactrim usage. Patient 's urinalysis does appear improved. Patient and family concerned that her symptoms seem to be worsening instead of improving. Please refer to the resident's notes for additional details and exam. MDM: It is unclear if this is related to the recent infection versus her history of multiple sclerosis. No other recent medication changes or infections , no other symptoms to suggest an additional occult infection. Patient's evaluation in the emergency department otherwise reassuring, patient hemodynamically stable throughout. I do not suspect bacteremia/sepsis, vascular etiology, CVA,, dysrhythmia, ACS. Patient also found to have elevated LFTs. While she has had mild elevations in the past, today's levels were significantly higher. No prior liver or biliary evaluation has been noted on review of EMR. Patient with no focal abdominal pain, however discussed with her this may need additional evaluation or possible GI consultation. Possible this is related to medications. No evidence of obstructive pathology and no presentation to suggest cholecystitis, choledocholithiasis, ascending cholangitis, or acute hepatitis. The patient does have history of malignancy, there is no known distant metastasis. Problem List Medical Problems: (1) Cecal cancer Status: Resolved (2) HTN (hypertension) Status: Chronic (3) Multiple sclerosis Status: Chronic Surgical Problems: (1) History of partial colectomy Permanent Comment: 2012 - [facility] [place] Dr Osman Lr Status: Resolved (2) Hx of appendectomy Status: Resolved (3) Hx of tubal ligation Status: Resolved Current/Historical Medications Scheduled Amlodipine Besylate (Amlodipine Besylate), 5 MG PO DAILY Ciprofloxacin (Ciprofloxacin HCl), 500 MG PO Q12H Fish Oil ([place]-3), 1 CAP PO DAILY Zhktamjrxmh-Rwtnxirbvhy-Eld C- (Glucosamine Chondroitin), 500 MG PO DAILY Multivit/Min/Iron/Fol Ac/Pren ( Vitamin), 1 TAB PO DAILY Scheduled PRN Diazepam (Valium), 5 MG PO TID PRN for SPASCITY Allergies Coded Allergies: Statins (Verified Allergy, Mild, SHORTNESS OF BREATH, 01/24/16) CHEPE Inhibitors (Unverified Allergy, Unknown, SHORTNESS OF BREATH, 01/24/16 ) PT DOES NOT THINK STATINS WAS A ALLERGY Penicillins (Verified Allergy, Unknown, 01/24/16) Vital Signs Date Time Temp Pulse Resp B/P (MAP) Pulse Ox O2 Delivery O2 Flow Rate FiO2 07/14/17 17:49 83 07/14/17 17:01 87 16 115/74 93 Room Air 07/14/17 15:25 89 13 133/80 94 Room Air 07/14/17 14:16 87 9 92 07/14/17 14:01 131/77 07/14/17 13:47 90 07/14/17 13:46 89 17 94 07/14/17 13:43 91 18 133/80 93 Room Air 07/14/17 13:42 133/80 07/14/17 11:56 101 18 157/85 96 Room Air Laboratory Results Test 07/14/17 15:25 07/14/17 15:39 07/14/17 15:45 Immature Granulocyte % (Auto) 0.2 % White Blood Count 8.68 K/uL (4.8-10.8) Red Blood Count 4.15 M/uL (4.2-5.4) Hemoglobin 13.3 g/dL (12.0-16.0) Hematocrit 37.3 % (37-47) Mean Corpuscular Volume 89.9 fL (80-100) Mean Corpuscular Hemoglobin 32.0 pg (25-34) Mean Corpuscular Hemoglobin Concent 35.7 g/dl (32-36) Platelet Count 219 K/uL (130-400) Mean Platelet Volume 11.1 fL (7.4-10.4) Neutrophils (%) (Auto) 77.5 % Lymphocytes (%) (Auto) 15.3 % Monocytes (%) (Auto) 6.8 % Eosinophils (%) (Auto) 0.1 % Basophils (%) (Auto) 0.1 % Neutrophils # (Auto) 6.72 K/uL (1.4-6.5) Lymphocytes # (Auto) 1.33 K/uL (1.2-3.4) Monocytes # (Auto) 0.59 K/uL (0.11-0.59) Eosinophils # (Auto) 0.01 K/uL (0-0.5) Basophils # (Auto) 0.01 K/uL (0-0.2) Immature Granulocyte # (Auto) 0.02 K/uL (0.00-0.02) Prothrombin Time 9.4 SECONDS (9.0-12.0) Prothromb Time International Ratio 0.9 (0.9-1.1) Activated Partial Thromboplast Time 27.0 SECONDS (21.0-31.0) Partial Thromboplastin Ratio 1.0 Bedside Lactic Acid Venous 1.28 mmol/L (0.90-1.70) Urine Color YELLOW Urine Appearance TURBID (CLEAR) Urine pH 5.0 (4.5-7.5) Urine Specific [place] 1.021 (1.000-1.030) Urine Protein NEG (NEG) Urine Glucose (UA) NEG (NEG) Urine Ketones 3+ (NEG) Urine Occult Blood NEG (NEG) Urine Nitrite NEG (NEG) Urine Bilirubin NEG (NEG) Urine Urobilinogen NEG (NEG) Urine Leukocyte Esterase NEG (NEG) Urine WBC (Auto) 0 /hpf (0-5) Urine RBC (Auto) 0-4 /hpf (0-4) Urine Hyaline Casts (Auto) 0 /lpf (0-5) Urine Epithelial Cells (Auto) 0-5 /lpf (0-5) Urine Bacteria (Auto) NEG (NEG) Urine Crystals URIC ACID (NONE PRSENT) Date/Time Source Procedure Growth Status 07/14/17 15:45 Urine , Clean Catch Urine Culture - Final NO GROWTH - LESS THAN 1,000 COLONIES/ML Complete Medications Administered Medications (Trade) Dose Ordered Sig/Dari Route Start Time Stop Time Status Last Admin Dose Admin Sodium Chloride 1,000 ml @ 125 mls/hr Q8H IV 07/14/17 15:30 07/14/17 20:33 DC 07/14/17 15:32 125 MLS/HR Departure Information Impression Primary Impression: Change in mental status Additional Impressions: UTI (urinary tract infection) Dehydration Multiple sclerosis Dispostion Being Evaluated By Hospitalist Condition GOOD Prescriptions Ciprofloxacin (Ciprofloxacin HCl) 500 Mg Tab 500 MG PO Q12H for 5 Days, #10 TAB Prov: Sharonda, Gomez,M.D. 07/16/17 Referrals Alisha Plaza M.D. (PCP) Patient Instructions My [facility] Problem Qualifiers Primary Impression: Change in mental status Altered mental status type: disorientation Qualified Codes: R41.0 - Disorientation, unspecified Additional Impressions: UTI (urinary tract infection) Urinary tract infection type: acute cystitis Hematuria presence: without hematuria Qualified Codes: N30.00 - Acute cystitis without hematuria
--- NOTE | 2017-07-14 16:54 | DIAGNOSTIC IMAGING REPORT ---
CT SCAN OF THE BRAIN WITHOUT IV CONTRAST CLINICAL HISTORY: Change in mental status. Fatigue. COMPARISON STUDY: MRI of the brain dated 01/24/2010. TECHNIQUE: Unenhanced axial CT scan of the brain is performed from the vertex to the skull base. A dose lowering technique was utilized adhering to the principles of ALARA. CT DOSE: 638.56 mGycm FINDINGS: Brain parenchyma: There are age-related involutional changes noting moderate confluent subcortical and periventricular microangiopathic change. There is no hemorrhage, mass effect, or evidence of acute territorial ischemia by CT criteria. Figueroa-white matter is preserved. No extra-axial fluid collection is seen. Ventricles, sulci, cisterns: Prominent secondary to involutional change. Intracranial vasculature: There is atherosclerotic calcification of the cavernous carotid and vertebral arteries. Calvarium: Unremarkable. Sinuses and mastoids: The visualized paranasal sinuses are clear. The mastoid air cells are well pneumatized. Orbits: The bony orbits are grossly intact. IMPRESSION: There is no hemorrhage, mass effect, or evidence of acute territorial ischemia by CT criteria. Electronically signed by: Mo Friedman M.D. 07/14/2017 4:53 PM Dictated Date/Time: 07/14/2017 4:51 PM
[2017-07-14] MEDS ORDERED: CEFTRIAXONE SOD INJ 1 GM in DEXTROSE 5% ADD-VANTAGE 50ML 50 ML IV SCH (19:00)
[2017-07-14] MEDS ORDERED: ACETAMINOPHEN 325 MG TAB PO PRN (19:00)
[2017-07-14] MEDS ORDERED: ONDANSETRON INJ 2 MG/ML 2 ML VIAL IV PRN (19:00)
--- NOTE | 2017-07-14 19:16 | History and Physical ---
History & Physical Date & Time of Service: Jul 14, 2017 at 19:04 Chief Complaint: Uti, Very Tired, Not Eating Or Drinking Primary Care Physician: Alisha Plaza M.D. History of Present Illness Source: patient, clinic records, hospital records Patient is a 62-year-old female with a PMH of progressive MS, recurrent UTIs, HTN and history of cecal cancer who presents with lethargy and poor PO intake 5 days. Patient was diagnosed with a UTI this past and was prescribed Bactrim. Urine culture grew E.coli and was susceptible to Bactrim. Patient also had first dose of medical marijuana on Friday for multiple sclerosis (has used marijuana in the past without these side effects). Over the weekend, patient continued to feel lethargic with intermittent confusion as well as poor appetite and poor fluid intake. Per , these are common signs and symptoms prior to UTI treatment but usually resolve with antibiotic within the first few days. Patient has completed 4.5/10 days of Bactrim course. Denies fever, chills, lightheadedness, confusion, headache, visual changes, chest pain , shortness of breath, abdominal pain, nausea, vomiting, dysuria, hematuria or new neurological symptoms. Patient is incontinent and wears depends. Is wheelchair bound and receives care from and home health aide. Past Medical/Surgical History Medical Problems: (1) Cecal cancer Status: Resolved (2) HTN (hypertension) Status: Chronic (3) Multiple sclerosis Status: Chronic Surgical Problems: (1) History of partial colectomy Permanent Comment: 2012 - [facility] [place] Status: Resolved (2) Hx of appendectomy Status: Resolved (3) Hx of tubal ligation Status: Resolved Family History FH: CAD (coronary artery disease) MOTHER (angioplasty age 62) FH: cancer FATHER (colon, liver, prostate) Hypertension MOTHER Stroke GRANDMOTHER Social History Smoking Status: Never Smoker Alcohol Use: occasionally Drug Use: none Marital Status: Housing status: lives with significant other Occupational Status: disabled Immunizations History of Influenza Vaccine: No History of Tetanus Vaccine?: Yes History of Pneumococcal: No History of Hepatitis B Vaccine: No Allergies Coded Allergies: Statins (Verified Allergy, Mild, SHORTNESS OF BREATH, 01/24/16) CHEPE Inhibitors (Unverified Allergy, Unknown, SHORTNESS OF BREATH, 01/24/16 ) PT DOES NOT THINK STATINS WAS A ALLERGY Penicillins (Verified Allergy, Unknown, 01/24/16) Home Medications Scheduled Amlodipine Besylate (Amlodipine Besylate), 5 MG PO DAILY Fish Oil ([place]-3), 1 CAP PO DAILY Cicncsxtbgj-Bmgrxchliun-Hnm C- (Glucosamine Chondroitin), 500 MG PO DAILY Multivit/Min/Iron/Fol Ac/Pren ( Vitamin), 1 TAB PO DAILY Sulfa/Trimethoprim (Bactrim Ds 800MG/160MG), 1 TAB PO BID Scheduled PRN Diazepam (Valium), 5 MG PO TID PRN for SPASCITY Review of Systems Ten systems reviewed and negative except as noted in the HPI. Physical Exam Vital Signs Date Time Temp Pulse Resp B/P (MAP) Pulse Ox O2 Delivery O2 Flow Rate FiO2 07/14/17 17:49 83 07/14/17 17:01 87 16 115/74 93 Room Air 07/14/17 15:25 89 13 133/80 94 Room Air 07/14/17 14:16 87 9 92 07/14/17 14:01 131/77 07/14/17 13:47 90 07/14/17 13:46 89 17 94 07/14/17 13:43 91 18 133/80 93 Room Air 07/14/17 13:42 133/80 07/14/17 11:56 101 18 157/85 96 Room Air General Appearance: WD/WN, no apparent distress, + pertinent finding ( Chronically ill-appearing) Head: normocephalic, atraumatic Eyes: normal inspection, PERRL, funduscopic exam normal ENT: normal ENT inspection, hearing grossly normal, pharynx normal (Dry mucous membranes) Neck: supple, thyroid normal, trachea midline Respiratory/Chest: chest non-tender, lungs clear, normal breath sounds, no respiratory distress, no accessory muscle use Cardiovascular: regular rate, rhythm, no murmur, normal peripheral pulses Abdomen/GI: non tender, soft, no organomegaly Back: normal inspection Extremities/Musculoskelatal: no calf tenderness, no pedal edema, + pertinent finding (Muscle atrophy (chronic)) Neurologic/Psych: no motor/sensory deficits (Wheelchair-bound at baseline), alert, normal mood/affect, oriented x 3 Skin: normal color, warm/dry, no rash Diagnostics Laboratory Results Results Past 24 Hours Test 07/14/17 15:25 07/14/17 15:39 07/14/17 15:45 Range/Units White Blood Count 8.68 4.8-10.8 K/uL Red Blood Count 4.15 4.2-5.4 M/uL Hemoglobin 13.3 12.0-16.0 g/dL Hematocrit 37.3 37-47 % Mean Corpuscular Volume 89.9 80-100 fL Mean Corpuscular Hemoglobin 32.0 25-34 pg Mean Corpuscular Hemoglobin Concent 35.7 32-36 g/dl Platelet Count 219 130-400 K/uL Mean Platelet Volume 11.1 7.4-10.4 fL Neutrophils (%) (Auto) 77.5 % Lymphocytes (%) (Auto) 15.3 % Monocytes (%) (Auto) 6.8 % Eosinophils (%) (Auto) 0.1 % Basophils (%) (Auto) 0.1 % Neutrophils # (Auto) 6.72 1.4-6.5 K/uL Lymphocytes # (Auto) 1.33 1.2-3.4 K/uL Monocytes # (Auto) 0.59 0.11-0.59 K/uL Eosinophils # (Auto) 0.01 0-0.5 K/uL Basophils # (Auto) 0.01 0-0.2 K/uL RDW Standard Deviation 49.0 36.4-46.3 fL RDW Coefficient of Variation 15.2 11.5-14.5 % Immature Granulocyte % (Auto) 0.2 % Immature Granulocyte # (Auto) 0.02 0.00-0.02 K/uL Sodium Level 137 136-145 mmol/L Potassium Level 4.1 3.5-5.1 mmol/L Chloride Level 101 98-107 mmol/L Carbon Dioxide Level 28 21-32 mmol/L Anion Gap 8.0 3-11 mmol/L Blood Urea Nitrogen 27 7-18 mg/dl Creatinine 0.94 0.60-1.20 mg/dl Estimated GFR () 74.3 Estimated GFR (Non- 64.1 BUN/Creatinine Ratio 29.0 10-20 Random Glucose 185 70-99 mg/dl Calcium Level 10.0 8.5-10.1 mg/dl Total Bilirubin 0.3 0.2-1 mg/dl Aspartate Amino Transf (AST/SGOT) 62 15-37 U/L Alanine Aminotransferase (ALT/SGPT) 109 12-78 U/L Alkaline Phosphatase 308 45-117 U/L Total Protein 7.6 6.4-8.2 gm/dl Albumin 3.1 3.4-5.0 gm/dl Globulin 4.5 2.5-4.0 gm/dl Albumin/Globulin Ratio 0.7 0.9-2 Bedside Lactic Acid Venous 1.28 0.90-1.70 mmol/L Urine Color YELLOW Urine Appearance TURBID CLEAR Urine pH 5.0 4.5-7.5 Urine Specific [place] 1.021 1.000-1.030 Urine Protein NEG NEG Urine Glucose (UA) NEG NEG Urine Ketones 3+ NEG Urine Occult Blood NEG NEG Urine Nitrite NEG NEG Urine Bilirubin NEG NEG Urine Urobilinogen NEG NEG Urine Leukocyte Esterase NEG NEG Urine WBC (Auto) 0 0-5 /hpf Urine RBC (Auto) 0-4 0-4 /hpf Urine Hyaline Casts (Auto) 0 0-5 /lpf Urine Epithelial Cells (Auto) 0-5 0-5 /lpf Urine Bacteria (Auto) NEG NEG Urine Crystals URIC ACID NONE PRSENT Microbiology Results 07/14/17 Blood Culture, Received Pending 07/14/17 Blood Culture, Received Pending Diagnostic Radiology Head CT: IMPRESSION: There is no hemorrhage, mass effect, or evidence of acute territorial ischemia by CT criteria. Impression Assessment and Plan Patient is a 62-year-old female with a PMH of progressive MS, recurrent UTIs, HTN and history of cecal cancer who presents with lethargy and poor PO intake 5 days. Lethargy, poor PO intake 2/2 ongoing UTI: -Also considered possible side effect from medical marijuana on Friday -No leukocytosis, UA within normal limits -CT head without acute abnormality -E coli UTI treated with Bactrim x 4 days -Will stop bactrim and initiate Cipro -Allergy to PCN (susceptible per urine cx ) -IVF resuscitation -Boost PRN Transaminitis: -AST: 62, ALT: 109, Alk phos: 308 -IVF resuscitation overnight -Trend with AM CMP -Consider GI consult if no improvement HTN: -Normotensive -Cont home dose amlodipine Progressive MS: -Stable, no worsening weakness, tingling -Cont Valium PRN for spasticity H/o cecal cancer: -S/p partial colectomy -Recent colonoscopy (Mar 2017) normal DVT Ppx: SQ heparin Code status: FULL code per discussion with patient PCP: Mela Dispo: Observation medsurg. Discharge planning ordered. Patient seen in collaboration with Dr. Johnson. Please see addendum. ATTENDING ADDENDUM: Patient seen and examined care coordinated with Anna Robles PA-C 62-year-old female with history of multiple sclerosis, recurrent UTI, hypertension, history of cecal cancer Presented to ER with increased lethargy, poor p.o. intake for the past 5 days Recently diagnosed with E. coli UTI on 07/07/2017 Was started on Bactrim Physical exam: Please refer to physical exam done by Anna Robles PA-C ASSESSMENT AND PLAN LETHARGY/METABOLIC ENCEPHALOPATHY: Possible due to combination of dehydration/infection UTI Patient also recently started with medical marijuana multiple sclerosis- Ordered IV fluids Empiric antibiotic with IV ciprofloxacin(outpatient urine culture E. coli was sensitive to Cipro) Repeat blood and urine culture ordered ABNORMAL LIVER FUNCTION TEST Found to be elevated ALT/alkaline phosphatase/AST Possible secondary to dehydration/marijuana induced Continue IV hydration Repeat LFT in a.m. Started GI consult if a.m. lab continued to worsen Full code Please referred to documentation by Anna Robles PA-C For further discussion of other chronic issue Patience Johnson MD Resuscitation Status VTE Prophylaxis Will order VTE Prophylaxis: Yes
[2017-07-14] MEDS ORDERED: OMEG10007 PO (19:17)
[2017-07-14] MEDS ORDERED: DIAZEPAM 5MG TAB PO PRN (19:30)
[2017-07-14] MEDS ORDERED: IV FLUIDS COMPLETED PRN (19:45)
[2017-07-14 19:49] LABS: INR 0.9 (0.9-1.1)
[2017-07-14 20:15] VITALS: BP 121/74; PULSE 90; TEMP 36.7; O2SAT 93
[2017-07-14 20:43] VITALS: BP 121/74; PULSE 90; TEMP 36.7
[2017-07-14] MEDS: SODIUM CHLORIDE 0.9% 1000ML 1,000 ML IV SCH (20:59)
[2017-07-14] MEDS: HEPARIN SOD 5000 UNIT/0.5 ML CARP SQ SCH (21:43)
[2017-07-14] MEDS ORDERED: PATIENT'S HEIGHT AND/OR WEIGHT NEEDED SCH (22:00)
[2017-07-14 22:09] VITALS: BMI 13.3
[2017-07-14] MEDS: CIPROFLOXACIN / D5W 400 MG in PREMIXED IN D5W 200 ML IV SCH (22:15)
[2017-07-14 22:58] VITALS: BP 124/70; PULSE 88; TEMP 36.5; O2SAT 97
[2017-07-15] VITALS (8 sets, daily range): BP systolic 111–145; BP diastolic 66–82; PULSE 76–89; TEMP 36.4–36.6; O2SAT 91–97; Ht 165.1 cm; Wt 40.3 kg
[2017-07-15] MEDS: SODIUM CHLORIDE 0.9% 1000ML 1,000 ML IV SCH ×3 (03:30→20:00)
[2017-07-15 07:44] LABS: ALBUMIN 2.7 gm/dl (3.4-5.0); CREATININE 0.69 mg/dl (0.60-1.20); POTASSIUM 4.2 mmol/L (3.5-5.1)
[2017-07-15 07:47] LABS: TOTAL PROTEIN 6.1 gm/dl (6.4-8.2)
[2017-07-15 07:53] LABS: HEMATOCRIT 33.4 % (37-47); HEMOGLOBIN 11.5 g/dL (12.0-16.0); MEAN CORPUSCULAR HGB CONC 34.4 g/dl (32-36); MEAN PLATELET VOLUME 10.4 fL (7.4-10.4); PLATELET COUNT 197 K/uL (130-400); RED CELL DISTRIBUTION WIDTH CV 15.4 % (11.5-14.5); RED CELL DISTRIBUTION WIDTH SD 49.7 fL (36.4-46.3); WHITE BLOOD COUNT 5.24 K/uL (4.8-10.8)
[2017-07-15] MEDS: PRENATAL VITAMIN TAB PO SCH (08:38)
[2017-07-15] MEDS: AMLODIPINE BESYLATE 5 MG TAB PO SCH (08:38)
[2017-07-15] MEDS: CIPROFLOXACIN / D5W 400 MG in PREMIXED IN D5W 200 ML IV SCH ×2 (08:40→22:24)
[2017-07-15] MEDS: HEPARIN SOD 5000 UNIT/0.5 ML CARP SQ SCH ×2 (08:41→19:58)
--- NOTE | 2017-07-15 18:24 | Progress Note ---
Medicine Progress Note Date & Time of Visit: Jul 15, 2017 at 18:04. Subjective Pt was seen and examined Lying in bed with no distress with at bedside feeding her lunch Pt said that she feels much better said that she seems almost back to her baseline She said that her strength slightly improved Denies any chest pain, palpitation, dizziness and SOB Objective Last 8 Hrs Date Time Temp Pulse Resp B/P (MAP) Pulse Ox O2 Delivery O2 Flow Rate FiO2 07/15/17 14:54 36.5 85 20 126/79 (95) 93 07/15/17 11:36 36.4 83 18 118/72 (87) 97 Room Air Physical Exam: General- No acute distress Head- atraumatic Eyes- PERRL, EOMI ENT- oropharynx clear Neck- supple, no JVD Lungs-No wheezing Heart- regular rhythm Abdomen- normal bowel sounds Extremities- no calf tenderness Neuro- alert, oriented, PERRL, EOMI Skin- warm & dry Laboratory Results: Last 24 Hours Test 07/15/17 06:35 White Blood Count 5.24 K/uL Red Blood Count 3.71 M/uL Hemoglobin 11.5 g/dL Hematocrit 33.4 % Mean Corpuscular Volume 90.0 fL Mean Corpuscular Hemoglobin 31.0 pg Mean Corpuscular Hemoglobin Concent 34.4 g/dl RDW Standard Deviation 49.7 fL RDW Coefficient of Variation 15.4 % Platelet Count 197 K/uL Mean Platelet Volume 10.4 fL Nucleated RBC Absolute Count (auto) 0.00 K/uL Nucleated Red Blood Cells % 0.0 % Sodium Level 140 mmol/L Potassium Level 4.2 mmol/L Chloride Level 107 mmol/L Carbon Dioxide Level 26 mmol/L Anion Gap 7.0 mmol/L Blood Urea Nitrogen 18 mg/dl Creatinine 0.69 mg/dl Est Creatinine Clear Calc Drug Dose 52.5 ml/min Estimated GFR () 106.6 Estimated GFR (Non- 92.0 BUN/Creatinine Ratio 25.7 Random Glucose 65 mg/dl Calcium Level 9.0 mg/dl Total Bilirubin 0.3 mg/dl Aspartate Amino Transf (AST/SGOT) 41 U/L Alanine Aminotransferase (ALT/SGPT) 77 U/L Alkaline Phosphatase 237 U/L Total Protein 6.1 gm/dl Albumin 2.7 gm/dl Globulin 3.4 gm/dl Albumin/Globulin Ratio 0.8 Assessment & Plan Patient is a 62-year-old female with a PMH of progressive MS, recurrent UTIs, HTN and history of cecal cancer who presents with lethargy and poor PO intake 5 days. LETHARGY/METABOLIC ENCEPHALOPATHY: Possible related to dehydration due to poor intake and UTI Recently started on medical marijuana for multiple sclerosis last Friday CT head showed no hemorrhage, mass effect, or evidence of acute territorial ischemia by CT criteria. On IV fluid, will decrease IVF since pt tolerated PO intake outpatient urine culture E. coli was sensitive to Cipro Repeat blood pending Urine culture no growth Clinically improved TRANSAMINITIS Possible related to dehydration Elevated ALT/alkaline phosphatase/AST on admission Liver enzymes trending down On IV hydration UTI Possible related to dehydration due to poor intake and UTI Outpatient urine culture growth E. coli Was getting Bactrim outpatient treatment (received 5 tabs) Recent Inpatient Urine cx showed no growth Continue Cipro IV Blood cx pending HTN: BP controlled Cont home dose amlodipine Monitor BP Progressive MS: Stable Cont Valium PRN for spasticity H/o cecal cancer: S/p partial colectomy Recent colonoscopy (Mar 2017) normal DVT Ppx: SQ heparin Code status FULL code Current Inpatient Medications: Current Inpatient Medications Medications (Trade) Dose Ordered Sig/Dari Route Start Time Stop Time Status Last Admin Dose Admin Acetaminophen (Tylenol Tab) 650 mg Q4H PRN PO 07/14/17 19:00 08/13/17 18:59 Ondansetron HCl (Zofran Inj) 4 mg Q6H PRN IV 07/14/17 19:00 08/13/17 18:59 Heparin Sodium (Porcine) (Heparin Sq 5000 Unit/0.5ml) 5,000 unit Q12H SQ 07/14/17 21:00 08/13/17 20:59 07/15/17 08:41 5,000 UNIT Sodium Chloride 1,000 ml @ 125 mls/hr Q8H IV 07/14/17 20:30 08/13/17 20:29 07/15/17 12:06 125 MLS/HR Amlodipine Besylate (Norvasc Tab) 5 mg DAILY PO 07/15/17 08:00 08/14/17 08:59 07/15/17 08:38 5 MG Diazepam (Valium Tab) 5 mg TID PRN PO 4/9/18 19:30 08/13/17 19:29 Prenat Multivit/ Controlled Atmospheric [place]/Iron/Folic Ac ( Vitamin Tab) 1 tab DAILY PO 07/15/17 08:00 08/14/17 08:59 07/15/17 08:38 1 TAB Miscellaneous (Iv Fluids Completed) 1 ea PRN PRN N/A 07/14/17 19:45 07/14/18 19:44 Ciprofloxacin/ Dextrose 400 mg/ Prmx 200 ml @ 100 mls/hr Q12H IV 07/14/17 22:00 07/24/17 21:59 07/15/17 08:40 100 MLS/HR
[2017-07-16] VITALS (9 sets, daily range): BP systolic 113–150; BP diastolic 69–89; PULSE 75–86; TEMP 36.4–36.9; O2SAT 92–97
[2017-07-16 07:36] LABS: ALBUMIN 2.6 gm/dl (3.4-5.0); CALCIUM 8.9 mg/dl (8.5-10.1); CREATININE 0.55 mg/dl (0.60-1.20); POTASSIUM 3.8 mmol/L (3.5-5.1)
[2017-07-16 07:40] LABS: TOTAL PROTEIN 6.1 gm/dl (6.4-8.2)
[2017-07-16] MEDS: PRENATAL VITAMIN TAB PO SCH (07:41)
[2017-07-16] MEDS: AMLODIPINE BESYLATE 5 MG TAB PO SCH (07:41)
[2017-07-16] MEDS: HEPARIN SOD 5000 UNIT/0.5 ML CARP SQ SCH ×2 (07:44→21:28)
[2017-07-16] MEDS: CIPROFLOXACIN / D5W 400 MG in PREMIXED IN D5W 200 ML IV SCH (09:57)
--- NOTE | 2017-07-16 14:11 | Progress Note ---
Medicine Progress Note Date & Time of Visit: Jul 16, 2017 at 14:01. Subjective Pt was seen and examined Lying in bed with no distress with at bedside Pt said that she feels fine said that she back to her baseline Her appetite is back her strength is getting better Pt would like to go home today Denies any fever, chest pain, palpitation and SOB Objective Last 8 Hrs Date Time Temp Pulse Resp B/P (MAP) Pulse Ox O2 Delivery O2 Flow Rate FiO2 07/16/17 11:36 36.6 80 20 126/74 (91) 95 Room Air 07/16/17 08:00 97 Room Air 07/16/17 07:32 36.4 75 16 142/87 (105) 97 Room Air Physical Exam: General- No acute distress Head- atraumatic Eyes- PERRL, EOMI ENT- oropharynx clear Neck- supple, no JVD Lungs-No wheezing Heart- regular rhythm Abdomen- normal bowel sounds Extremities- no calf tenderness Neuro- alert, oriented, PERRL, EOMI Skin- warm & dry Laboratory Results: Last 24 Hours Test 07/16/17 06:34 Sodium Level 141 mmol/L Potassium Level 3.8 mmol/L Chloride Level 107 mmol/L Carbon Dioxide Level 24 mmol/L Anion Gap 10.0 mmol/L Blood Urea Nitrogen 8 mg/dl Creatinine 0.55 mg/dl Est Creatinine Clear Calc Drug Dose 63.1 ml/min Estimated GFR () 114.9 Estimated GFR (Non- 99.1 BUN/Creatinine Ratio 14.4 Random Glucose 67 mg/dl Calcium Level 8.9 mg/dl Magnesium Level 1.8 mg/dl Total Bilirubin 0.4 mg/dl Aspartate Amino Transf (AST/SGOT) 37 U/L Alanine Aminotransferase (ALT/SGPT) 66 U/L Alkaline Phosphatase 215 U/L Total Protein 6.1 gm/dl Albumin 2.6 gm/dl Globulin 3.5 gm/dl Albumin/Globulin Ratio 0.7 Assessment & Plan Patient is a 62-year-old female with a PMH of progressive MS, recurrent UTIs, HTN and history of cecal cancer who presents with lethargy and poor PO intake 5 days. LETHARGY/METABOLIC ENCEPHALOPATHY: Possible related to dehydration due to poor intake and UTI Recently started on medical marijuana for multiple sclerosis last Friday CT head showed no hemorrhage, mass effect, or evidence of acute territorial ischemia by CT criteria. Tolerated oral intake and has good appetite now Discontinued IVF outpatient urine culture E. coli was sensitive to Cipro TRANSAMINITIS Possible related to dehydration Elevated ALT/alkaline phosphatase/AST on admission Liver enzymes continue trending down AST and ALT wnl UTI Possible related to dehydration due to poor intake and UTI Outpatient urine culture growth E. coli Was getting Bactrim outpatient treatment (received 5 tabs"4.5 days") Recent Inpatient Urine cx showed no growth blood cx no growth On Cipro IV Clinically improved Will discharge on cipro oral HTN: BP controlled Cont home dose amlodipine Monitor BP Progressive MS: Stable Cont Valium PRN for spasticity H/o cecal cancer: S/p partial colectomy Recent colonoscopy (Mar 2017) normal DVT Ppx: SQ heparin Code status FULL code Disposition Discharge home today Follow up with dr. Plaza Current Inpatient Medications: Current Inpatient Medications Medications (Trade) Dose Ordered Sig/Dari Route Start Time Stop Time Status Last Admin Dose Admin Acetaminophen (Tylenol Tab) 650 mg Q4H PRN PO 07/14/17 19:00 08/13/17 18:59 Ondansetron HCl (Zofran Inj) 4 mg Q6H PRN IV 07/14/17 19:00 08/13/17 18:59 Heparin Sodium (Porcine) (Heparin Sq 5000 Unit/0.5ml) 5,000 unit Q12H SQ 07/14/17 21:00 08/13/17 20:59 07/16/17 07:44 5,000 UNIT Amlodipine Besylate (Norvasc Tab) 5 mg DAILY PO 07/15/17 08:00 08/14/17 08:59 07/16/17 07:41 5 MG Diazepam (Valium Tab) 5 mg TID PRN PO 07/14/17 19:30 08/13/17 19:29 Prenat Multivit/ [place]/Iron/Folic Ac ( Vitamin Tab) 1 tab DAILY PO 07/15/17 08:00 08/14/17 08:59 07/16/17 07:41 1 TAB Miscellaneous (Iv Fluids Completed) 1 ea PRN PRN N/A 07/14/17 19:45 07/14/18 19:44 Ciprofloxacin (Cipro Tab) 500 mg Q12H PO 07/16/17 22:00 07/24/17 21:59
[2017-07-16] MEDS ORDERED: CPR500 PO (14:16)
--- NOTE | 2017-07-16 14:25 | Discharge Instructions ---
Discharge Instructions Date of Service Jul 17, 2017. Admission Reason for Admission: Dehydration, Hx:Uti Discharge Discharge Diagnosis / Problem: UTI/Confusion/Dehydration Discharge Goals Goal(s): Decrease discomfort, Improve function, Improve disease control Activity Recommendations Activity Limitations: resume your previous activity (as tolerated) . Instructions / Follow-Up Instructions / Follow-Up Discharge home with home health services Follow up appointment with your primary care provider Dr. Plaza on 07/22 @ 10: 30 AM Complete course of antibiotic with cipro Fall precaution Current Hospital Diet Patient's current hospital diet: Regular Diet Discharge Diet Recommended Diet: Regular Diet Pending Studies Studies pending at discharge: no Medical Emergencies . Who to Call and When: Medical Emergencies: If at any time you feel your situation is an emergency, please call 911 immediately. . Non-Emergent Contact Non-Emergency issues call your: Primary Care Provider Call Non-Emergent contact if: temperature is above 100.5, you have any medication questions . . "Provider Documentation" section prepared by Patricia Mcdonough. .
[2017-07-16] MEDS ORDERED: ONDANSETRON INJ 2 MG/ML 2 ML VIAL IV ONE (16:15)
[2017-07-16] MEDS ORDERED: ONDANSETRON 4MG OD TAB ONE (16:25)
[2017-07-16] MEDS ORDERED: NURSING VERBAL MED ORDER ONE (16:30)
[2017-07-16] MEDS ORDERED: ONDANSETRON 4 MG TAB PO ONE (16:30)
[2017-07-16] MEDS ORDERED: ONDANSETRON INJ 2 MG/ML 2 ML VIAL IV PRN (18:45)
[2017-07-16] MEDS ORDERED: SODIUM CHLORIDE 0.9% 1000ML 1,000 ML IV SCH (18:45)
[2017-07-16] MEDS: CIPROFLOXACIN 500 MG TAB PO SCH (21:21)
[2017-07-17] VITALS: O2SAT 97
[2017-07-17 04:15] VITALS: BP 157/72; PULSE 80; TEMP 36.7; O2SAT 96
[2017-07-17 07:27] VITALS: BP 125/80; PULSE 75; TEMP 36.7; O2SAT 95
[2017-07-17] MEDS: CIPROFLOXACIN 500 MG TAB PO SCH (09:09)
[2017-07-17] MEDS: AMLODIPINE BESYLATE 5 MG TAB PO SCH (09:09)
[2017-07-17] MEDS: PRENATAL VITAMIN TAB PO SCH (09:10)
[2017-07-17] MEDS: HEPARIN SOD 5000 UNIT/0.5 ML CARP SQ SCH (09:18)
--- NOTE | 2017-07-17 13:48 | Clinical Documentation Query ---
CLINICAL DOCUMENTATION QUERY Dr. MOTA, In your clinical opinion is this patient being managed for: ( ) severe protein-calorie malnutrition ( ) Not Agree ( ) Other explanation of clinical findings (Please Explain) ( ) Unable to determine (Please Define) ( ) Need to Discuss The medical record reflects the following clinical findings, treatment, and risk factors. Clinical Indicators: Review of historical EMR showed 26% wt loss in 1.[address] Scan Technician documentation indicates pt has lost 7.5 kg in 4 months (15.7%). Reportedly poor oral intake x 5 days Treatment: chocolate CBD, terra cotta mold maker consult, MVI Risk Factors: progressive MS, hx cecal cancer, UTI Severe Malnutrition Criteria: (2 criteria needed) Energy intake: <50% of estimated energy requirement for > 5 days Wt loss: 1-2% in 1 wk, 5% in 1 month, or 7.5% in 3 months Body fat: moderate loss of SQ fat from the orbits, triceps or fat overlying the ribs Muscle mass: moderate muscle wasting at the temples, clavicles, shoulders, interosseous spaces, scapula, thigh, calf Fluid accumulation: moderate to severe localized or generalized edema of the extremities, vulva, scrotum-wt loss may be masked by edema Windows Systems Architect strength: measurably decreased per the devices standards Please clarify and document your clinical opinion in the progress notes and discharge summary. Terms such as "probable", "suspected", "likely", "questionable", "possible", or "still to be ruled out" are acceptable. IF IN AGREEMENT, YOU MUST DOCUMENT ABOVE DIAGNOSTIC STATEMENT IN DAILY PROGRESS NOTES AND DISCHARGE SUMMARY. This document is not part of the patient's record. Thank You, Jeanette Velazco, RN [phone]
[2017-07-17 14:25] VITALS: BP 127/69; PULSE 73; TEMP 36.5; O2SAT 92
[2017-07-17] MEDS ORDERED: ONDA4TAB10 SL (16:32)
[2017-07-17] MEDS ORDERED: CPR500 PO (16:32)
--- NOTE | 2017-07-17 16:42 | Progress Note ---
Medicine Progress Note Date & Time of Visit: Jul 17, 2017 at 16:36. Subjective Pt was seen and examined Lying in bed with no distress Very anxious to go home She said that she feels much better She said that she has not had any nausea and vomiting since yesterday afternoon She tolerated her diet Denies any chest pain, palpitation, dizziness, SOB and palpitation Objective Last 8 Hrs Date Time Temp Pulse Resp B/P (MAP) Pulse Ox O2 Delivery O2 Flow Rate FiO2 07/17/17 14:25 36.5 73 16 127/69 (88) 92 07/17/17 09:10 Room Air Physical Exam: General- No acute distress Head- atraumatic Eyes- PERRL, EOMI ENT- oropharynx clear Neck- supple, no JVD Lungs-No wheezing Heart- regular rhythm Abdomen- normal bowel sounds Extremities- no calf tenderness Neuro- alert, oriented, PERRL, EOMI Skin- warm & dry Assessment & Plan Patient is a 62-year-old female with a PMH of progressive MS, recurrent UTIs, HTN and history of cecal cancer who presents with lethargy and poor PO intake 5 days. LETHARGY/METABOLIC ENCEPHALOPATHY: Possible related to dehydration due to poor intake and UTI Recently started on medical marijuana for multiple sclerosis last Friday CT head showed no hemorrhage, mass effect, or evidence of acute territorial ischemia by CT criteria. Tolerated oral intake and has good appetite now outpatient urine culture E. coli was sensitive to Cipro Resolved Nausea/Vomiting Possible related to med/food intake Pt said that she felt nausea after eating the fish Tolerated Diet IVF discontinued Zofran prn Resolved TRANSAMINITIS Possible related to dehydration Elevated ALT/alkaline phosphatase/AST on admission Liver enzymes continue trending down AST and ALT wnl UTI Possible related to dehydration due to poor intake and UTI Outpatient urine culture growth E. coli Was getting Bactrim outpatient treatment (received 5 tabs"4.5 days") Recent Inpatient Urine cx showed no growth blood cx no growth On Cipro IV Clinically improved Will continue cipro for an additional 4 days HTN: BP controlled Cont home dose amlodipine Monitor BP Progressive MS: Stable Cont Valium PRN for spasticity H/o cecal cancer: S/p partial colectomy Recent colonoscopy (Mar 2017) normal DVT Ppx: SQ heparin Code status FULL code Disposition Discharge home today Follow up with dr. Plaza on 07/22 @ 10:45 AM Current Inpatient Medications: Current Inpatient Medications Medications (Trade) Dose Ordered Sig/Dari Route Start Time Stop Time Status Last Admin Dose Admin Acetaminophen (Tylenol Tab) 650 mg Q4H PRN PO 07/14/17 19:00 08/13/17 18:59 Ondansetron HCl (Zofran Inj) 4 mg Q6H PRN IV 07/14/17 19:00 08/13/17 18:59 Heparin Sodium (Porcine) (Heparin Sq 5000 Unit/0.5ml) 5,000 unit Q12H SQ 07/14/17 21:00 08/13/17 20:59 07/17/17 09:18 5,000 UNIT Amlodipine Besylate (Norvasc Tab) 5 mg DAILY PO 07/15/17 08:00 08/14/17 08:59 07/17/17 09:09 5 MG Diazepam (Valium Tab) 5 mg TID PRN PO 07/14/17 19:30 08/13/17 19:29 Prenat Multivit/ [place]/Iron/Folic Ac ( Vitamin Tab) 1 tab DAILY PO 07/15/17 08:00 08/14/17 08:59 07/17/17 09:10 1 TAB Miscellaneous (Iv Fluids Completed) 1 ea PRN PRN N/A 07/14/17 19:45 07/14/18 19:44 Ciprofloxacin (Cipro Tab) 500 mg Q12H PO 07/16/17 22:00 07/24/17 21:59 07/17/17 09:09 500 MG Ondansetron HCl (Zofran Inj) 4 mg Q6 PRN IV 07/16/17 18:45 08/15/17 18:44
--- NOTE | 2017-07-19 08:57 | Discharge Summary ---
Discharge Summary Date of Service Jul 19, 2017. Discharge Summary Admission Date: Jul 15, 2017 at 16:05 Discharge Date: Jul 16, 2017 Discharge Disposition: Home with services Principal Diagnosis: LETHARGY/METABOLIC ENCEPHALOPATHY Secondary Diagnoses/Problems: UTI Confusion Dehydration TRANSAMINITIS H/o cecal cancer: MS HTN Procedures: CT SCAN OF THE BRAIN WITHOUT IV CONTRAST CLINICAL HISTORY: Change in mental status. Fatigue. COMPARISON STUDY: MRI of the brain dated 01/24/2010. TECHNIQUE: Unenhanced axial CT scan of the brain is performed from the vertex to the skull base. A dose lowering technique was utilized adhering to the principles of ALARA. CT DOSE: 638.56 mGycm FINDINGS: Brain parenchyma: There are age-related involutional changes noting moderate confluent subcortical and periventricular microangiopathic change. There is no hemorrhage, mass effect, or evidence of acute territorial ischemia by CT criteria. Figueroa-white matter is preserved. No extra-axial fluid collection is seen. Ventricles, sulci, cisterns: Prominent secondary to involutional change. Intracranial vasculature: There is atherosclerotic calcification of the cavernous carotid and vertebral arteries. Calvarium: Unremarkable. Sinuses and mastoids: The visualized paranasal sinuses are clear. The mastoid air cells are well pneumatized. Orbits: The bony orbits are grossly intact. IMPRESSION: There is no hemorrhage, mass effect, or evidence of acute territorial ischemia by CT criteria. Electronically signed by: Mo Friedman M.D. 07/14/2017 4:53 PM Dictated Date/Time: 07/14/2017 4:51 PM Medication Reconciliation New Medications: Ondasetron Odt (Zofran Odt) 4 Mg Tab 4 MG SL Q8 PRN for Nausea, #10 TAB Ciprofloxacin (Ciprofloxacin HCl) 500 Mg Tab 500 MG PO Q12H for 4 Days, #8 TAB Continued Medications: Amlodipine Besylate (Amlodipine Besylate) 5 Mg Tab 5 MG PO DAILY, #90 Diazepam (Valium) 5 Mg Tab 5 MG PO TID PRN for SPASCITY, 0 Refills Fish Oil ([place]-3) 1 Ea Cap 1 CAP PO DAILY, CAP Ybrqhbcyhri-Zunwxpehddv-Wer C- (Glucosamine Chondroitin) 1 Tab Tab 500 MG PO DAILY Multivit/Min/Iron/Fol Ac/Pren ( Vitamin) Tab 1 TAB PO DAILY Discontinued Medications: Sulfa/Trimethoprim (Bactrim Ds 800MG/160MG) Tab 1 TAB PO BID STARTED 07/10/17 Admission Information HPI (per Admitting provider): Patient is a 62-year-old female with a PMH of progressive MS, recurrent UTIs, HTN and history of cecal cancer who presents with lethargy and poor PO intake 5 days. Patient was diagnosed with a UTI this past and was prescribed Bactrim. Urine culture grew E.coli and was susceptible to Bactrim. Patient also had first dose of medical marijuana on Friday for multiple sclerosis (has used marijuana in the past without these side effects). Over the weekend, patient continued to feel lethargic with intermittent confusion as well as poor appetite and poor fluid intake. Per , these are common signs and symptoms prior to UTI treatment but usually resolve with antibiotic within the first few days. Patient has completed 4.5/10 days of Bactrim course. Denies fever, chills, lightheadedness, confusion, headache, visual changes, chest pain , shortness of breath, abdominal pain, nausea, vomiting, dysuria, hematuria or new neurological symptoms. Patient is incontinent and wears depends. Is wheelchair bound and receives care from and home health aide. Physical Exam (per Admitting): General Appearance: WD/WN, no apparent distress, + pertinent finding ( Chronically ill-appearing) Head: normocephalic, atraumatic Eyes: normal inspection, PERRL, funduscopic exam normal ENT: normal ENT inspection, hearing grossly normal, pharynx normal (Dry mucous membranes) Neck: supple, thyroid normal, trachea midline Respiratory/Chest: chest non-tender, lungs clear, normal breath sounds, no respiratory distress, no accessory muscle use Cardiovascular: regular rate, rhythm, no murmur, normal peripheral pulses Abdomen/GI: non tender, soft, no organomegaly Back: normal inspection Extremities/Musculoskelatal: no calf tenderness, no pedal edema, + pertinent finding (Muscle atrophy (chronic)) Neurologic/Psych: no motor/sensory deficits (Wheelchair-bound at baseline), alert, normal mood/affect, oriented x 3 Skin: normal color, warm/dry, no rash Hospital Course Patient is a 62-year-old female with a PMH of progressive MS, recurrent UTIs, HTN and history of cecal cancer who presents with lethargy and poor PO intake 5 days. LETHARGY/METABOLIC ENCEPHALOPATHY: Possible related to dehydration due to poor intake and UTI Recently started on medical marijuana for multiple sclerosis last Friday CT head showed no hemorrhage, mass effect, or evidence of acute territorial ischemia by CT criteria. Tolerated oral intake and has good appetite now outpatient urine culture E. coli was sensitive to Cipro Resolved Nausea/Vomiting Possible related to med/food intake Pt said that she felt nausea after eating the fish Tolerated Diet IVF discontinued Zofran prn Resolved TRANSAMINITIS Possible related to dehydration Elevated ALT/alkaline phosphatase/AST on admission Liver enzymes continue trending down AST and ALT wnl UTI Possible related to dehydration due to poor intake and UTI Outpatient urine culture growth E. coli Was getting Bactrim outpatient treatment (received 5 tabs"4.5 days") Recent Inpatient Urine cx showed no growth blood cx no growth On Cipro IV Clinically improved Will continue cipro for an additional 4 days HTN: BP controlled Cont home dose amlodipine Monitor BP Progressive MS: Stable Cont Valium PRN for spasticity H/o cecal cancer: S/p partial colectomy Recent colonoscopy (Mar 2017) normal DVT Ppx: SQ heparin Code status FULL code Disposition Discharge home today Follow up with dr. Plaza on 07/22 @ 10:45 AM Total time spent on discharge = 35 MIN This includes examination of the patient, discharge planning, medication reconciliation, and communication with other providers. Discharge Instructions Discharge Instructions Date of Service Jul 17, 2017. Admission Reason for Admission: Dehydration, Hx:Uti Discharge Discharge Diagnosis / Problem: UTI/Confusion/Dehydration Discharge Goals Goal(s): Decrease discomfort, Improve function, Improve disease control Activity Recommendations Activity Limitations: resume your previous activity (as tolerated) . Instructions / Follow-Up Instructions / Follow-Up Discharge home with home health services Follow up appointment with your primary care provider Dr. Plaza on 07/22 @ 10: 30 AM Complete course of antibiotic with cipro Fall precaution Current Hospital Diet Patient's current hospital diet: Regular Diet Discharge Diet Recommended Diet: Regular Diet Pending Studies Studies pending at discharge: no Medical Emergencies . Who to Call and When: Medical Emergencies: If at any time you feel your situation is an emergency, please call 911 immediately. . Non-Emergent Contact Non-Emergency issues call your: Primary Care Provider Call Non-Emergent contact if: temperature is above 100.5, you have any medication questions . . "Provider Documentation" section prepared by Patricia Mcdonough. . Additional Copies To Alisha Plaza M.D.
== END 2017-07-17 17:22 | disposition home health service (06) | DRG 689 ==
LOC: C.EDB 11:49 → C.4E 19:00 → ENRESERV 19:32 → OBSVTOIN 07-15 16:05
PROVIDERS: ADMIT Hospitalist; ATTEND Internal Medicine
DX: N39.0 Urinary tract infection, site not specified (principal); G93.41 Metabolic encephalopathy; G35 Multiple sclerosis; R11.2 Nausea with vomiting, unspecified; E86.0 Dehydration; R53.83 Other fatigue; R74.0 Nonspecific elevation of levels of transaminase and lactic acid dehydrogenase [LDH]; I10 Essential (primary) hypertension; Z79.2 Long term (current) use of antibiotics; Z79.899 Other long term (current) drug therapy; Z85.038 Personal history of other malignant neoplasm of large intestine; Z88.0 Allergy status to penicillin; Z88.8 Allergy status to other drugs, medicaments and biological substances; Z99.3 Dependence on wheelchair

== ENCOUNTER 2022-08-06 20:01 | Inpatient (IN) ==
[2022-08-06] MEDS ORDERED: CLINDAMYCIN/D5W 900 MG/50 ML BAG IV ONE (20:09)
[2022-08-06] MEDS ORDERED: ALBUT/IPRATROP 3MG/0.5MG NEB 3 ML VIAL NEB STA (20:14)
[2022-08-06] MEDS ORDERED: SODIUM CHLORIDE 0.9% 1000ML 500 ML IV ONE (20:14)
--- NOTE | 2022-08-06 20:14 | Emergency Department Note ---
Impression & Plan Acute hypoxemic respiratory failure, Multiple sclerosis, Aspiration into airway, Acute dehydration, Hypokalemia ED Provider Note NAME: MAURICE KING AGE: 67 SEX: F : 1955 ARRIVES VIA: Ambulance INFORMANT: Patient, ED PROVIDER(S): Jett Duff MD CHIEF COMPLAINT: Hypoxemia MEDICAL DECISION MAKING: Patient presents after a choking episode with hypoxemia. The patient's hypoxemia is significantly profound in the 60s and 70s upon presentation on nonrebreather. The patient does not look uncomfortable in appearance. The patient was to be trialed on high flow nasal cannula oxygen. There is concern for possible obstructive process given the choking episode. Patient does have decreased breath sounds throughout but the patient does not appear in extremis and is not symptomatic. I did asked nursing to obtain a forehead pulse ox and the patient did have blood work completed and IV established ABG completed along with empiric clindamycin for possible aspiration as the patient does have a penicillin allergy. Patient does have a known history of MS. The patient's posterior pharynx is clear is handling secretions. Patient is initial [id number] shows normal kidney function but potassium of 7.1. Patient already been ordered a DuoNeb but was ordered a gram of calcium as a precaution. EKG shows A-fib. No prior history per family. The patient's blood work is in white count H&H and platelet count. The patient's kidney function is unremarkable. Initial blood gas shows a PO2 of 34. Patient's lab potassium is 3.3. The patient does have mild lactate of 3.2 and was ordered IV fluids. The patient does have prerenal azotemia noted. The patient's bio fire is negative. The patient did not have improvements in her oxygenation on the high flow and was switched to BiPAP. The patient's chest x- ray does not show any obvious pneumothorax but consolidation in the left lower chest. I did speak with ALISTAIR Diaz with the intensive care unit who also did discuss the case with on-call curriculum counselor Dr. Lynn to did review the patient's CT angiography of the chest. Patient upon returning does appear to be improved and the patient's oxygen saturations have improved to the 90s. Repeat gas was obtained. The patient's repeat blood gas shows improvement in her PO2 to 73. Patient is tolerating the BiPAP well. Patient's CT angio of the chest shows no evidence of PE and no obstruction of the esophagus. Airspace consolidation seen left upper lobe. CT soft tissue neck shows the airspace consolidation left upper lobe but no obstruction of the proximal esophagus. I did speak with the on-call hospitalist service Dr. Robledo and the patient was admitted to the medicine service. Critical Care: I have personally spent 95 minutes of critical care time in direct management of this patient. This includes bedside care, interpretation of diagnostic studies, and testing, discussion with consultants, patient, and family members, and other require inpatient management activities. This 95 minutes is in excess of all separately billable procedures. Prior /Outside records reviewed: I did review the discharge summary from Dr. Mcdonough July 2017 for dehydration transaminitis and confusion. Differential diagnosis: Pulmonary obstructive process, flash pulmonary edema, reactive airway disease, pneumonia, pneumothorax, COPD, CHF, infections, cardiac ischemia, pulmonary embolism, musculoskeletal, gastrointestinal, as well as other pathologies. Diagnostics, as interpreted by me: ECG: A-fib with RVR, rate of 118, normal intervals normal axis no ST elevations. Cardiac monitoring: An order was placed for continuous cardiac monitoring. The monitor shows a rate of 102 with irregularly irregular rhythm. Patient was placed on pulse oximetry Medical decision rules: None Imaging studies: See below I informally reviewed the patient's chest x-ray shows hyperinflation of the right chest and possible left lower lobe consolidation. HPI: Patient presents via EMS due to concern for hypoxemia. The patient reportedly had a choking episode while trying to eat some bread while at the [employer] in [place] and was noted to be cyanotic in the patient's room air saturation was in the 50s. The patient was put on nonrebreather to high as oxygen saturation of 80%. Patient currently denies any chest pain shortness of breath nausea vomiting. The patient does feel improved but states that she never really felt very short of breath at the time this occurred. The patient did have the Heimlich performed. Patient does have a known history of MS but does not take any medications for it. Patient does not take anything out of something for allergies amlodipine for blood pressure as well as vitamins. No other supplements other than vitamin D3. Patient denies any prior history of blood clots no leg swelling or calf pain. No recent surgeries procedures or hospitalizations. PAST MEDICAL HISTORY: See Below PAST SURGICAL HISTORY: See Below SOCIAL HISTORY: See Below HOME MEDICATIONS: See Below ALLERGIES: See Below VITALS: See Below PHYSICAL EXAMINATION: GENERAL: NAD, wearing a mask, non-toxic. EYE EXAM: Normal conjunctiva. PERRL, no anisocoria and EOM's grossly intact w/o pain. NECK: Supple, no nuchal rigidity, no adenopathy, non-tender. No signs of meningismus. FROM of the neck with good chin to chest and neck extension. No stridor. LUNGS: Decreased breath sounds. Normal chest wall mechanics. HEART: Tachycardic and irregularly irregular, no MRG. ABDOMEN: Abdomen soft, non-tender, no masses, no rebound or guarding. BACK: No CVA TTP. SKIN: No rashes and no bruising. UPPER EXTREMITIES: Upper extremities are grossly normal. LOWER EXTREMITIES: Grossly normal, no edema. Negative Homans' sign bilaterally. NEURO EXAM: A&O x3, cranial nerves II-XII grossly intact, normal speech, moves all 4 extremities. Past Med/Surg History Medical History History of colon cancer diagnosed 2011--sx Hypertension Multiple sclerosis wheelchair bound Wheelchair bound Surgical History History of appendectomy History of bilateral tubal ligation History of colon surgery (~2011) to remove colon cancer @ [facility] History of tooth extraction History of wisdom tooth extraction Family History Other No family history of adverse response to anesthesia Social History Smoking Status: Never smoker Second Hand Exposure: Yes (parents smoked); Do You Dip or Chew Tobacco: No; Hx Alcohol Use: Yes Alcohol type: wine Hx Substance Use: No Preferred Language: South African Communication Ability: Effective Drive In Teller Required: No Beliefs That Will Affect Care: None Current Living Situation: Spouse Feels Safe at Home: Yes Assistive Devices: Glasses and Wheelchair Allergies Allergies Allergy/AdvReac Type Severity Reaction Status Date / Time CHEPE Inhibitors Allergy Intermediate SHORTNESS Verified 08/06/22 20:56 OF BREATH Penicillins Allergy Intermediate swelling Verified 08/06/22 20:56 Bnzhpbh-[id number]-LpZ Reductase Allergy Intermediate SHORTNESS Verified 08/06/22 20:56 Inhibitor OF BREATH [Kwnnzwh-Gmq-Hgu Reductase Inhibitor] Home Meds Home Medications Medication Instructions Recorded Confirmed amlodipine 5 mg tablet 5 mg PO HS 06/30/20 08/06/22 cholecalciferol (vitamin D3) 25 1,000 unit PO QAM 06/30/20 08/06/22 mcg (1,000 unit) tablet (Vitamin D3) diphenhydramine HCl 25 mg tablet 25 mg PO HS 06/30/20 08/06/22 multivit with 1 tab PO QAM 06/30/20 08/06/22 [id number]-lutein 8 mg iron-400 mcg-300 mcg tablet (Centrum Silver Women) Results & Data (ED) Vital Signs Vital Signs - 24 hr 08/06/22 20:07 08/06/22 20:16 08/06/22 20:16 Temperature Temperature Source Pulse Rate 112 H 106 H Pulse Rate [Apical] Pulse Rate from SpO2 Sensor Pulse Rhythm [Apical] Pulse Strength [Apical] Respiratory Rate 18 Respiratory Effort / Characteristics Respiratory Depth Respiratory Pattern Blood Pressure Blood Pressure [Left Arm] Blood Pressure Mean Blood Pressure Mean [Left Arm] Blood Pressure Position Blood Pressure Position [Left Arm] Pulse Oximetry 64 L Oxygen Delivery Method BiPAP BiPAP Oxygen Flow Rate Fraction of Inspired Oxygen SaO2/FiO2 Ratio Sepsis Recent Fever Within 48 Hours Sepsis New/Unexplained Change in Mental Status Sepsis Action Taken by Nursing 08/06/22 20:05 08/06/22 20:09 08/06/22 20:09 Temperature Temperature Source Pulse Rate 112 H 120 H Pulse Rate [Apical] Pulse Rate from SpO2 Sensor 121 H 116 H Pulse Rhythm [Apical] Pulse Strength [Apical] Respiratory Rate 20 25 H Respiratory Effort / Characteristics Respiratory Depth Respiratory Pattern Blood Pressure 110/70 Blood Pressure [Left Arm] Blood Pressure Mean 83 Blood Pressure Mean [Left Arm] Blood Pressure Position Blood Pressure Position [Left Arm] Pulse Oximetry 71 L 71 L Oxygen Delivery Method Oxygen Flow Rate Fraction of Inspired Oxygen SaO2/FiO2 Ratio Sepsis Recent Fever Within 48 Hours Sepsis New/Unexplained Change in Mental Status Sepsis Action Taken by Nursing 08/06/22 20:10 08/06/22 20:15 08/06/22 20:15 Temperature Temperature Source Pulse Rate 116 H 109 H Pulse Rate [Apical] Pulse Rate from SpO2 Sensor 115 H 109 H Pulse Rhythm [Apical] Pulse Strength [Apical] Respiratory Rate 18 20 Respiratory Effort / Characteristics Respiratory Depth Respiratory Pattern Blood Pressure 116/76 Blood Pressure [Left Arm] Blood Pressure Mean 89 Blood Pressure Mean [Left Arm] Blood Pressure Position Blood Pressure Position [Left Arm] Pulse Oximetry 71 L 66 L Oxygen Delivery Method Oxygen Flow Rate Fraction of Inspired Oxygen SaO2/FiO2 Ratio Sepsis Recent Fever Within 48 Hours Sepsis New/Unexplained Change in Mental Status Sepsis Action Taken by Nursing 08/06/22 20:20 08/06/22 20:30 08/06/22 20:31 Temperature Temperature Source Pulse Rate 114 H 120 H 109 H Pulse Rate [Apical] Pulse Rate from SpO2 Sensor 118 H 116 H 106 H Pulse Rhythm [Apical] Pulse Strength [Apical] Respiratory Rate 18 23 18 Respiratory Effort / Characteristics Respiratory Depth Respiratory Pattern Blood Pressure Blood Pressure [Left Arm] Blood Pressure Mean Blood Pressure Mean [Left Arm] Blood Pressure Position Blood Pressure Position [Left Arm] Pulse Oximetry 64 L 67 L 69 L Oxygen Delivery Method Oxygen Flow Rate Fraction of Inspired Oxygen SaO2/FiO2 Ratio Sepsis Recent Fever Within 48 Hours Sepsis New/Unexplained Change in Mental Status Sepsis Action Taken by Nursing 08/06/22 20:31 08/06/22 20:33 08/06/22 20:55 Temperature Temperature Source Pulse Rate 111 H Pulse Rate [Apical] Pulse Rate from SpO2 Sensor Pulse Rhythm [Apical] Pulse Strength [Apical] Respiratory Rate Respiratory Effort / Characteristics Non-Labored Spontaneous Respiratory Depth Normal Respiratory Pattern Regular Blood Pressure 97/71 L Blood Pressure [Left Arm] Blood Pressure Mean 79 Blood Pressure Mean [Left Arm] Blood Pressure Position Blood Pressure Position [Left Arm] Pulse Oximetry 96 94 Oxygen Delivery Method Oxygen Flow Rate Fraction of Inspired Oxygen 100 90 SaO2/FiO2 Ratio Sepsis Recent Fever Within 48 Hours Sepsis New/Unexplained Change in Mental Status Sepsis Action Taken by Nursing 08/06/22 20:00 08/06/22 19:48 08/06/22 21:30 Temperature 36.4 C L Temperature Source Axillary Pulse Rate 110 H Pulse Rate [Apical] Pulse Rate from SpO2 Sensor Pulse Rhythm [Apical] Pulse Strength [Apical] Respiratory Rate 17 18 Respiratory Effort / Characteristics Non-Labored Spontaneous Respiratory Depth Respiratory Pattern Blood Pressure 127/92 Blood Pressure [Left Arm] Blood Pressure Mean 103 Blood Pressure Mean [Left Arm] Blood Pressure Position Lying Blood Pressure Position [Left Arm] Pulse Oximetry 70 L 90 91 Oxygen Delivery Method High Flow Nasal Cannula CPAP Oxygen Flow Rate 40 Fraction of Inspired Oxygen 100 100 SaO2/FiO2 Ratio Sepsis Recent Fever Within 48 Hours No Sepsis New/Unexplained Change in Mental Status No Sepsis Action Taken by Nursing No Action Required 08/06/22 23:25 08/07/22 00:12 Temperature Temperature Source Pulse Rate 124 H Pulse Rate [Apical] 127 H Pulse Rate from SpO2 Sensor Pulse Rhythm [Apical] Regular Pulse Strength [Apical] Normal Respiratory Rate 19 22 Respiratory Effort / Characteristics Non-Labored Spontaneous Non-Labored Spontaneous Respiratory Depth Normal Normal Respiratory Pattern Regular Regular Blood Pressure Blood Pressure [Left Arm] 119/67 Blood Pressure Mean Blood Pressure Mean [Left Arm] 84 Blood Pressure Position Blood Pressure Position [Left Arm] Lying Pulse Oximetry 91 92 Oxygen Delivery Method CPAP Oxygen Flow Rate Fraction of Inspired Oxygen 90 90 SaO2/FiO2 Ratio 102 Sepsis Recent Fever Within 48 Hours Sepsis New/Unexplained Change in Mental Status Sepsis Action Taken by [facility] Medications Current Medication List: was personally reviewed by me Laboratory Data Attestation: I reviewed the patient's lab results. 08/06/22 20:14 08/06/22 20:14 Lab Results 08/06/22 08/06/22 08/06/22 Range/Units 20:14 20:14 20:14 WBC 7.30 (4.8-10.8) K/ul RBC 4.69 (4.20-5.40) M/uL Hgb 15.0 (12.0-16.0) g/dl POC Hgb (12.0-16.0) g/dl Hct 44.1 (37.0-47.0) % POC Hct (37-47) % MCV 94.0 (80.0-100.0) fL MCH 32.0 (25.0-34.0) pg MCHC 34.0 (32.0-36.0) g/dL RDW Std Deviation 53.1 H (36.4-46.3) fL RDW Coeff of Nadira 15.4 H (11.5-14.5) % Plt Count 267 (130-400) K/uL MPV 10.0 (9.4-12.4) fL Immature Gran % (Auto) 0.4 % Neut % (Auto) 43.0 % Lymph % (Auto) 46.3 % [place] % (Auto) 7.9 % Eos % (Auto) 1.9 % Baso % (Auto) 0.5 % Neut # (Auto) 3.13 (1.40-6.50) K/uL Lymph # (Auto) 3.38 (1.2-3.4) K/uL [place] # (Auto) 0.58 (0.11-0.59) K/uL Eos # (Auto) 0.14 (0-0.50) K/uL Baso # (Auto) 0.04 (0-0.2) K/uL Immature Gran # (Auto) 0.03 (0.01-0.20) K/uL PT 10.1 (9.0-12.0) Seconds INR 0.9 (0.9-1.1) APTT 25.6 (21.0-31.0) Seconds PTT Ratio 0.9 POC pH (7.35-7.45) POC pCO2 (35-46) mmHg POC pO2 (80-95) mmHg POC HCO3 (19-24) neva/L POC Base Excess (-9-1.8) neva/L ABG pH (7.35-7.45) ABG pCO2 (35-46) mmHg ABG pO2 (80-95) mmHg ABG HCO3 (19-24) mmol/L POC ABG O2 Sat (90-95) % ABG O2 Saturation (90-95) % ABG Base Excess (-9-1.8) mEq/L Jakub Test (Pos) Methemoglobin (0.0-1.5) % Oxygen Given POC Sodium (135-144) mmol/L Sodium 141 (136-145) mmol/L POC Potassium (3.3-5.0) mmol/L Potassium 3.3 L (3.5-5.1) mmol/L POC Chloride (101-112) mmol/L Chloride 107 (98-107) mmol/L Carbon Dioxide 19 L (21-32) mmol/L POC Total CO2 (24-31) mmol/L Anion Gap 15 H (3-11) POC Anion Gap (16-25) mmol/L POC BUN (7-18) mg/dl BUN 17 (6-23) mg/dl Creatinine 0.53 L (0.6-1.2) mg/dl POC Creatinine (0.6-1.3) mg/dl Est Cr Clr Drug Dosing Not Reportable Est GFR ( Amer) 112.3 ml/min Est GFR (Non-Af Amer) 96.9 ml/min BUN/Creatinine Ratio 32.1 H (10-20) Glucose 188 H (70-99(Fasting)) mg/dl POC Glucose (other) (70-99) mg/dl Lactate (0.4-2.0) mmol/L Calcium 9.0 (8.6-10.3) mg/dl POC Ioniz Calcium Feng (1.12-1.32) mmol/l Magnesium 1.9 (1.7-2.4) mg/dl Total Bilirubin 0.4 (0.2-1.0) mg/dl AST 34 (13-39) U/L ALT 44 (7-52) U/L Alkaline Phosphatase 89 (34-104) U/L Total Protein 6.9 (6.0-8.3) gm/dl Albumin 3.9 (3.4-5.0) gm/dl Globulin 3.0 (2.5-4.0) gm/dl Albumin/Globulin Ratio 1.3 (0.9-2) Urine Color Urine Appearance (Clear) Urine pH (4.5-7.5) Ur Specific [place] (1.000-1.030) Urine Protein (Negative) Urine Glucose (UA) (Negative) Urine Ketones (Negative) Urine Blood (Negative) Urine Nitrite (Negative) Urine Bilirubin (Negative) Urine Urobilinogen (Negative) Ur Leukocyte Esterase (Negative) Urine WBC (Auto) (0-5) /hpf Urine RBC (Auto) (0-4) /hpf U Hyaline Cast (Auto) (0-5) /lpf U Epithel Cells (Auto) (0-5) /lpf Urine Bacteria (Auto) (Negative) Adenovirus (PCR) (NotDetected) B. pertussis DNA (PCR) (NotDetected) B.parapertussis DNA PCR (NotDetected) C. pneumoniae DNA (PCR) (NotDetected) Coronavirus OC43 (PCR) (NotDetected) Coronavirus HKU1 (PCR) (NotDetected) Coronavirus 229E (PCR) (NotDetected) SARS-CoV-2 (PCR) (NotDetected) Coronavirus NL63 (PCR) (NotDetected) Human Metapneumovir PCR (NotDetected) Influenza Type A (PCR) (NotDetected) Influenza Type B (PCR) (NotDetected) M. pneumoniae (PCR) (NotDetected) Parainfluenza 1 (PCR) (NotDetected) Parainfluenza 2 (PCR) (NotDetected) Parainfluenza 3 (PCR) (NotDetected) Parainfluenza 4 (PCR) (NotDetected) RSV (PCR) (NotDetected) Entero/Rhino (PCR) (NotDetected) 08/06/22 08/06/22 08/06/22 Range/Units 20:14 20:14 20:21 WBC (4.8-10.8) K/ul RBC (4.20-5.40) M/uL Hgb (12.0-16.0) g/dl POC Hgb 15.3 (12.0-16.0) g/dl Hct (37.0-47.0) % POC Hct 45 (37-47) % MCV (80.0-100.0) fL MCH (25.0-34.0) pg MCHC (32.0-36.0) g/dL RDW Std Deviation (36.4-46.3) fL RDW Coeff of Nadira (11.5-14.5) % Plt Count (130-400) K/uL MPV (9.4-12.4) fL Immature Gran % (Auto) % Neut % (Auto) % Lymph % (Auto) % [place] % (Auto) % Eos % (Auto) % Baso % (Auto) % Neut # (Auto) (1.40-6.50) K/uL Lymph # (Auto) (1.2-3.4) K/uL [place] # (Auto) (0.11-0.59) K/uL Eos # (Auto) (0-0.50) K/uL Baso # (Auto) (0-0.2) K/uL Immature Gran # (Auto) (0.01-0.20) K/uL PT (9.0-12.0) Seconds INR (0.9-1.1) APTT (21.0-31.0) Seconds PTT Ratio POC pH 7.32 L (7.35-7.45) POC pCO2 36 (35-46) mmHg POC pO2 34 L (80-95) mmHg POC HCO3 18 L (19-24) neva/L POC Base Excess -8.0 (-9-1.8) neva/L ABG pH (7.35-7.45) ABG pCO2 (35-46) mmHg ABG pO2 (80-95) mmHg ABG HCO3 (19-24) mmol/L POC ABG O2 Sat 61.0 L (90-95) % ABG O2 Saturation (90-95) % ABG Base Excess (-9-1.8) mEq/L Jakub Test (Pos) Methemoglobin (0.0-1.5) % Oxygen Given POC Sodium 137 (135-144) mmol/L Sodium (136-145) mmol/L POC Potassium 7.1 H* (3.3-5.0) mmol/L Potassium (3.5-5.1) mmol/L POC Chloride 111 (101-112) mmol/L Chloride (98-107) mmol/L Carbon Dioxide (21-32) mmol/L POC Total CO2 19 L 19 L (24-31) mmol/L Anion Gap (3-11) POC Anion Gap 16.0 (16-25) mmol/L POC BUN 24 H (7-18) mg/dl BUN (6-23) mg/dl Creatinine (0.6-1.2) mg/dl POC Creatinine 0.5 L (0.6-1.3) mg/dl Est Cr Clr Drug Dosing Est GFR ( Amer) ml/min Est GFR (Non-Af Amer) ml/min BUN/Creatinine Ratio (10-20) Glucose (70-99(Fasting)) mg/dl POC Glucose (other) 180 H (70-99) mg/dl Lactate (0.4-2.0) mmol/L Calcium (8.6-10.3) mg/dl POC Ioniz Calcium Feng 0.98 L (1.12-1.32) mmol/l Magnesium (1.7-2.4) mg/dl Total Bilirubin (0.2-1.0) mg/dl AST (13-39) U/L ALT (7-52) U/L Alkaline Phosphatase (34-104) U/L Total Protein (6.0-8.3) gm/dl Albumin (3.4-5.0) gm/dl Globulin (2.5-4.0) gm/dl Albumin/Globulin Ratio (0.9-2) Urine Color Urine Appearance (Clear) Urine pH (4.5-7.5) Ur Specific [place] (1.000-1.030) Urine Protein (Negative) Urine Glucose (UA) (Negative) Urine Ketones (Negative) Urine Blood (Negative) Urine Nitrite (Negative) Urine Bilirubin (Negative) Urine Urobilinogen (Negative) Ur Leukocyte Esterase (Negative) Urine WBC (Auto) (0-5) /hpf Urine RBC (Auto) (0-4) /hpf U Hyaline Cast (Auto) (0-5) /lpf U Epithel Cells (Auto) (0-5) /lpf Urine Bacteria (Auto) (Negative) Adenovirus (PCR) Not Detected (NotDetected) B. pertussis DNA (PCR) Not Detected (NotDetected) B.parapertussis DNA PCR Not Detected (NotDetected) C. pneumoniae DNA (PCR) Not Detected (NotDetected) Coronavirus OC43 (PCR) Not Detected (NotDetected) Coronavirus HKU1 (PCR) Not Detected (NotDetected) Coronavirus 229E (PCR) Not Detected (NotDetected) SARS-CoV-2 (PCR) Not Detected (NotDetected) Coronavirus NL63 (PCR) Not Detected (NotDetected) Human Metapneumovir PCR Not Detected (NotDetected) Influenza Type A (PCR) Not Detected (NotDetected) Influenza Type B (PCR) Not Detected (NotDetected) M. pneumoniae (PCR) Not Detected (NotDetected) Parainfluenza 1 (PCR) Not Detected (NotDetected) Parainfluenza 2 (PCR) Not Detected (NotDetected) Parainfluenza 3 (PCR) Not Detected (NotDetected) Parainfluenza 4 (PCR) Not Detected (NotDetected) RSV (PCR) Not Detected (NotDetected) Entero/Rhino (PCR) Not Detected (NotDetected) 08/06/22 08/06/22 08/06/22 Range/Units 21:23 21:30 21:30 WBC (4.8-10.8) K/ul RBC (4.20-5.40) M/uL Hgb (12.0-16.0) g/dl POC Hgb (12.0-16.0) g/dl Hct (37.0-47.0) % POC Hct (37-47) % MCV (80.0-100.0) fL MCH (25.0-34.0) pg MCHC (32.0-36.0) g/dL RDW Std Deviation (36.4-46.3) fL RDW Coeff of Nadira (11.5-14.5) % Plt Count (130-400) K/uL MPV (9.4-12.4) fL Immature Gran % (Auto) % Neut % (Auto) % Lymph % (Auto) % [place] % (Auto) % Eos % (Auto) % Baso % (Auto) % Neut # (Auto) (1.40-6.50) K/uL Lymph # (Auto) (1.2-3.4) K/uL [place] # (Auto) (0.11-0.59) K/uL Eos # (Auto) (0-0.50) K/uL Baso # (Auto) (0-0.2) K/uL Immature Gran # (Auto) (0.01-0.20) K/uL PT (9.0-12.0) Seconds INR (0.9-1.1) APTT (21.0-31.0) Seconds PTT Ratio POC pH (7.35-7.45) POC pCO2 (35-46) mmHg POC pO2 (80-95) mmHg POC HCO3 (19-24) neva/L POC Base Excess (-9-1.8) neva/L ABG pH 7.33 L (7.35-7.45) ABG pCO2 40 (35-46) mmHg ABG pO2 73 L (80-95) mmHg ABG HCO3 21 (19-24) mmol/L POC ABG O2 Sat (90-95) % ABG O2 Saturation 95.8 H (90-95) % ABG Base Excess -4.5 (-9-1.8) mEq/L Jakub Test Pos (Pos) Methemoglobin < 0.7 (0.0-1.5) % Oxygen Given 90% BIPAP POC Sodium (135-144) mmol/L Sodium (136-145) mmol/L POC Potassium (3.3-5.0) mmol/L Potassium (3.5-5.1) mmol/L POC Chloride (101-112) mmol/L Chloride (98-107) mmol/L Carbon Dioxide (21-32) mmol/L POC Total CO2 (24-31) mmol/L Anion Gap (3-11) POC Anion Gap (16-25) mmol/L POC BUN (7-18) mg/dl BUN (6-23) mg/dl Creatinine (0.6-1.2) mg/dl POC Creatinine (0.6-1.3) mg/dl Est Cr Clr Drug Dosing Est GFR ( Amer) ml/min Est GFR (Non-Af Amer) ml/min BUN/Creatinine Ratio (10-20) Glucose (70-99(Fasting)) mg/dl POC Glucose (other) (70-99) mg/dl Lactate (0.4-2.0) mmol/L Calcium (8.6-10.3) mg/dl POC Ioniz Calcium Feng (1.12-1.32) mmol/l Magnesium (1.7-2.4) mg/dl Total Bilirubin (0.2-1.0) mg/dl AST (13-39) U/L ALT (7-52) U/L Alkaline Phosphatase (34-104) U/L Total Protein (6.0-8.3) gm/dl Albumin (3.4-5.0) gm/dl Globulin (2.5-4.0) gm/dl Albumin/Globulin Ratio (0.9-2) Urine Color Yellow Urine Appearance Clear (Clear) Urine pH 6.0 (4.5-7.5) Ur Specific [place] 1.034 H (1.000-1.030) Urine Protein Negative (Negative) Urine Glucose (UA) Negative (Negative) Urine Ketones Trace H (Negative) Urine Blood Negative (Negative) Urine Nitrite Negative (Negative) Urine Bilirubin Negative (Negative) Urine Urobilinogen Negative (Negative) Ur Leukocyte Esterase Trace H (Negative) Urine WBC (Auto) 1-5 (0-5) /hpf Urine RBC (Auto) 0-4 (0-4) /hpf U Hyaline Cast (Auto) 1-5 (0-5) /lpf U Epithel Cells (Auto) >30 H (0-5) /lpf Urine Bacteria (Auto) Negative (Negative) Adenovirus (PCR) (NotDetected) B. pertussis DNA (PCR) (NotDetected) B.parapertussis DNA PCR (NotDetected) C. pneumoniae DNA (PCR) (NotDetected) Coronavirus OC43 (PCR) (NotDetected) Coronavirus HKU1 (PCR) (NotDetected) Coronavirus 229E (PCR) (NotDetected) SARS-CoV-2 (PCR) (NotDetected) Coronavirus NL63 (PCR) (NotDetected) Human Metapneumovir PCR (NotDetected) Influenza Type A (PCR) (NotDetected) Influenza Type B (PCR) (NotDetected) M. pneumoniae (PCR) (NotDetected) Parainfluenza 1 (PCR) (NotDetected) Parainfluenza 2 (PCR) (NotDetected) Parainfluenza 3 (PCR) (NotDetected) Parainfluenza 4 (PCR) (NotDetected) RSV (PCR) (NotDetected) Entero/Rhino (PCR) (NotDetected) 08/06/22 Range/Units 21:36 WBC (4.8-10.8) K/ul RBC (4.20-5.40) M/uL Hgb (12.0-16.0) g/dl POC Hgb (12.0-16.0) g/dl Hct (37.0-47.0) % POC Hct (37-47) % MCV (80.0-100.0) fL MCH (25.0-34.0) pg MCHC (32.0-36.0) g/dL RDW Std Deviation (36.4-46.3) fL RDW Coeff of Nadira (11.5-14.5) % Plt Count (130-400) K/uL MPV (9.4-12.4) fL Immature Gran % (Auto) % Neut % (Auto) % Lymph % (Auto) % [place] % (Auto) % Eos % (Auto) % Baso % (Auto) % Neut # (Auto) (1.40-6.50) K/uL Lymph # (Auto) (1.2-3.4) K/uL [place] # (Auto) (0.11-0.59) K/uL Eos # (Auto) (0-0.50) K/uL Baso # (Auto) (0-0.2) K/uL Immature Gran # (Auto) (0.01-0.20) K/uL PT (9.0-12.0) Seconds INR (0.9-1.1) APTT (21.0-31.0) Seconds PTT Ratio POC pH (7.35-7.45) POC pCO2 (35-46) mmHg POC pO2 (80-95) mmHg POC HCO3 (19-24) neva/L POC Base Excess (-9-1.8) neva/L ABG pH (7.35-7.45) ABG pCO2 (35-46) mmHg ABG pO2 (80-95) mmHg ABG HCO3 (19-24) mmol/L POC ABG O2 Sat (90-95) % ABG O2 Saturation (90-95) % ABG Base Excess (-9-1.8) mEq/L Jakub Test (Pos) Methemoglobin (0.0-1.5) % Oxygen Given POC Sodium (135-144) mmol/L Sodium (136-145) mmol/L POC Potassium (3.3-5.0) mmol/L Potassium (3.5-5.1) mmol/L POC Chloride (101-112) mmol/L Chloride (98-107) mmol/L Carbon Dioxide (21-32) mmol/L POC Total CO2 (24-31) mmol/L Anion Gap (3-11) POC Anion Gap (16-25) mmol/L POC BUN (7-18) mg/dl BUN (6-23) mg/dl Creatinine (0.6-1.2) mg/dl POC Creatinine (0.6-1.3) mg/dl Est Cr Clr Drug Dosing Est GFR ( Amer) ml/min Est GFR (Non-Af Amer) ml/min BUN/Creatinine Ratio (10-20) Glucose (70-99(Fasting)) mg/dl POC Glucose (other) (70-99) mg/dl Lactate 3.2 H* (0.4-2.0) mmol/L Calcium (8.6-10.3) mg/dl POC Ioniz Calcium Feng (1.12-1.32) mmol/l Magnesium (1.7-2.4) mg/dl Total Bilirubin (0.2-1.0) mg/dl AST (13-39) U/L ALT (7-52) U/L Alkaline Phosphatase (34-104) U/L Total Protein (6.0-8.3) gm/dl Albumin (3.4-5.0) gm/dl Globulin (2.5-4.0) gm/dl Albumin/Globulin Ratio (0.9-2) Urine Color Urine Appearance (Clear) Urine pH (4.5-7.5) Ur Specific [place] (1.000-1.030) Urine Protein (Negative) Urine Glucose (UA) (Negative) Urine Ketones (Negative) Urine Blood (Negative) Urine Nitrite (Negative) Urine Bilirubin (Negative) Urine Urobilinogen (Negative) Ur Leukocyte Esterase (Negative) Urine WBC (Auto) (0-5) /hpf Urine RBC (Auto) (0-4) /hpf U Hyaline Cast (Auto) (0-5) /lpf U Epithel Cells (Auto) (0-5) /lpf Urine Bacteria (Auto) (Negative) Adenovirus (PCR) (NotDetected) B. pertussis DNA (PCR) (NotDetected) B.parapertussis DNA PCR (NotDetected) C. pneumoniae DNA (PCR) (NotDetected) Coronavirus OC43 (PCR) (NotDetected) Coronavirus HKU1 (PCR) (NotDetected) Coronavirus 229E (PCR) (NotDetected) SARS-CoV-2 (PCR) (NotDetected) Coronavirus NL63 (PCR) (NotDetected) Human Metapneumovir PCR (NotDetected) Influenza Type A (PCR) (NotDetected) Influenza Type B (PCR) (NotDetected) M. pneumoniae (PCR) (NotDetected) Parainfluenza 1 (PCR) (NotDetected) Parainfluenza 2 (PCR) (NotDetected) Parainfluenza 3 (PCR) (NotDetected) Parainfluenza 4 (PCR) (NotDetected) RSV (PCR) (NotDetected) Entero/Rhino (PCR) (NotDetected) Administered Medications Lactated Ringer's (Lr) 1,000 mls @ 200 mls/hr IV .Q5H ONE Stop: 08/07/22 02:29 Last Admin: 08/06/22 22:13 Dose: 200 mls/hr Documented By: Discontinued Medications Albuterol (Albut/Ipratrop 3mg/0.5mg Neb 3 Ml Vial) 3 ml NEB NOW STA; Protocol Stop: 08/06/22 20:15 Last Admin: 08/06/22 20:35 Dose: 3 ml Documented By: Clindamycin Phosphate (Cleocin/D5w) 900 mg in 50 mls @ 100 mls/hr IV NOW ONE Stop: 08/06/22 20:38 Last Infusion: 08/06/22 21:39 Dose: 0 mls/hr Documented By: Admin: 08/06/22 21:06 Dose: 100 mls/hr Documented By: Sodium Chloride (Nss 1000ml) 500 mls @ 999 mls/hr IV .Q31M ONE Stop: 08/06/22 20:44 Last Infusion: 08/06/22 21:06 Dose: 0 mls/hr Documented By: Admin: 08/06/22 20:27 Dose: 999 mls/hr Documented By: Calcium Gluconate () 1,000 mg in 60 mls @ 240 mls/hr IV NOW STA Stop: 08/06/22 20:35 Last Infusion: 08/06/22 21:06 Dose: 0 mls/hr Documented By: Admin: 08/06/22 20:28 Dose: 240 mls/hr Documented By: Magnesium Sulfate/Dextrose (Magnesium Sulfate / D5w) 1 gm in 100 mls @ 50 mls/hr IV ONE ONE Stop: 08/06/22 23:44 Last Infusion: 08/07/22 00:15 Dose: 0 mls/hr Documented By: Admin: 08/06/22 22:13 Dose: 50 mls/hr Documented By: Potassium Chloride (K Yosvany / Wtr) 10 meq in 100 mls @ 100 mls/hr IV Q1H [facility]; Protocol Stop: 08/06/22 23:29 Last Admin: 08/07/22 00:31 Dose: 100 mls/hr Documented By: Infusion: 08/06/22 23:15 Dose: 0 mls/hr Documented By: Admin: 08/06/22 22:13 Dose: 100 mls/hr Documented By: ISAAC Amiodarone HCl/Dextrose (Nexterone / D5w) 150 mg in 100 mls @ 600 mls/hr IV NOW STA Stop: 08/06/22 23:59 Last Admin: 08/07/22 00:38 Dose: 600 mls/hr Documented By: FRANCIS Co-signed By: ZACHARY Ioversol (Optiray 320 500ml) 117 ml IV ONCE ONE Stop: 08/06/22 20:52 Last Admin: 08/06/22 20:56 Dose: 117 ml Documented By: VON Methylprednisolone (Methylprednisolone 40 Mg/Ml Vial) 20 mg IV ONE STA Stop: 08/06/22 23:14 Last Admin: 08/06/22 23:29 Dose: 20 mg Documented By: FRANCIS Imaging Data Radiologist's Impression: Chest CTA 08/06/22 20:06 Exam(s): CTA CHEST IV Amt: 117ml optiray 320 EXAM: CT Angiography Chest With Intravenous Contrast CLINICAL HISTORY: Reason for exam: profound hypoxia after chocking episode. TECHNIQUE: Axial computed tomographic angiography images of the chest with intravenous contrast. CTDI is 12.86 mGy and DLP is 315.22 mGy-cm. Automated exposure control was utilized for the study. A dose lowering technique was utilized adhering to the principles of ALARA. MIP reconstructed images were created and reviewed. COMPARISON: No relevant prior studies available. FINDINGS: Pulmonary arteries: Unremarkable. No acute pulmonary embolism. Aorta: No acute findings. No thoracic aortic aneurysm. Lungs: Airspace consolidation in the LEFT upper lobe, with debris in the LEFT upper lobe bronchi, consistent with aspiration pneumonia. Pleural space: Unremarkable. No significant effusion. No pneumothorax. Heart: Unremarkable. No cardiomegaly. No significant pericardial effusion. No evidence of RV dysfunction. Mediastinum: Unremarkable. No obstruction of the esophagus. Bones/joints: No acute fracture. No dislocation. Soft tissues: Unremarkable. Lymph nodes: Unremarkable. No enlarged lymph nodes. IMPRESSION: 1. No acute pulmonary embolism. 2. No obstruction of the esophagus. 3. Airspace consolidation in the LEFT upper lobe, with debris in the LEFT upper lobe bronchi, consistent with aspiration pneumonia. Electronically signed by: Suleman Gardiner MD 08/06/22 22:11 PM Soft Tissue Neck CT 08/06/22 20:06 Exam(s): CT NECK With Contrast IV Amt: 117ml optiray 320 EXAM: CT Neck With Intravenous Contrast CLINICAL HISTORY: Reason for exam: hypoxia s/p chocking episode. TECHNIQUE: Axial computed tomography images of the neck with intravenous contrast. CTDI is 7.7 mGy and DLP is 254.95 mGy-cm. Automated exposure control was utilized for the study. A dose lowering technique was utilized adhering to the principles of ALARA. CONTRAST: Patient received 117ml optiray 320 of IV contrast COMPARISON: No relevant prior studies available. FINDINGS: Oropharynx: Unremarkable. No significant tonsillar enlargement. No peritonsillar abscess. Hypopharynx: Unremarkable. Larynx: Unremarkable. Normal epiglottis. Trachea: Unremarkable. Retropharyngeal space: Unremarkable. Submandibular/parotid glands: The submandibular and parotid glands are within normal limits. Thyroid: LEFT thyroid nodule measures 7 mm. Bones/joints: Cervical spondylosis and degenerative disc disease. No acute fracture. Soft tissues: Unremarkable. Vasculature: Atherosclerotic changes. Lymph nodes: Unremarkable. No lymphadenopathy. Esophagus: Unremarkable as visualized. No obstruction of the proximal esophagus. Refer to concomitant chest CT scan report. Lung apices: Airspace consolidation LEFT upper lobe. Refer to concomitant chest CT scan report. IMPRESSION: 1. No obstruction of the proximal esophagus. Refer to concomitant chest CT scan report. 2. Airspace consolidation LEFT upper lobe. Refer to concomitant chest CT scan report. Electronically signed by: Suleman Gardiner MD 08/06/22 22:02 PM Discharge Plan Visit Data Chief Complaint: Shortness of Breath/Dyspnea Stated Complaint: SOB ED Provider: Jett Duff Discharge Problem: Acute hypoxemic respiratory failure, Multiple sclerosis, Aspiration into airway, Acute dehydration, Hypokalemia Forms Stand Alone Forms: [facility] Prescriptions Prescriptions: No Action amlodipine 5 mg Tablet 5 mg PO HS diphenhydramine HCl 25 mg Tablet 25 mg PO HS cholecalciferol (vitamin D3) [Vitamin D3] 25 mcg (1,000 unit) Tablet 1,000 unit PO QAM Centrum Silver Women 8 mg iron-400 mcg-300 mcg Tablet 1 tab PO QAM Referrals Referrals: Judd Wise DO [Primary Care Provider] -
[2022-08-06] MEDS ORDERED: CALCIUM GLUCONATE 1,000 MG/60 ML BAG IV STA (20:21)
[2022-08-06 20:28] LABS: iSTAT Creatinine 0.5 mg/dl (0.6-1.3); iSTAT Hemoglobin 15.3 g/dl (12.0-16.0); iSTAT Ionized Calcium 0.98 mmol/l (1.12-1.32); iSTAT Potassium 7.1 mmol/L (3.3-5.0)
[2022-08-06 20:37] LABS: iSTAT Arterial Blood Gas HCO3 18 meg/L (19-24); iSTAT Arterial Blood Gas pCO2 36 mmHg (35-46); iSTAT Arterial Blood Gas pH 7.32 (7.35-7.45); iSTAT Arterial Blood Gas pO2 34 mmHg (80-95); iSTAT Carbon Dioxide 19 mmol/L (24-31)
[2022-08-06 20:48] LABS: Basophils # (auto) 0.04 K/uL (0-0.2); Basophils % (auto) 0.5 %; Eosinophils # (auto) 0.14 K/uL (0-0.50); Eosinophils % (auto) 1.9 %; Hematocrit (blood only) 44.1 % (37.0-47.0); Immature Granulocytes # (auto) 0.03 K/uL (0.01-0.20); Immature Granulocytes % (auto) 0.4 %; Lymphocytes # (auto) 3.38 K/uL (1.2-3.4); Lymphocytes % (auto) 46.3 %; Monocytes # (auto) 0.58 K/uL (0.11-0.59); Monocytes % (auto) 7.9 %; Neutrophils # (auto) 3.13 K/uL (1.40-6.50); Platelet Count 267 K/uL (130-400); RDW Coefficient of Variation 15.4 % (11.5-14.5); RDW Standard Deviation 53.1 fL (36.4-46.3); Red Blood Count 4.69 M/uL (4.20-5.40)
[2022-08-06] MEDS ORDERED: OPTIRAY 320 500ml IV ONE (20:51)
[2022-08-06 21:07] LABS: Alanine Aminotransferase 44 U/L (7-52); Albumin Globulin Ratio 1.3 (0.9-2); Albumin Level 3.9 gm/dl (3.4-5.0); Alkaline Phosphatase 89 U/L (34-104); Anion Gap 15 (3-11); Aspartate Aminotransferase 34 U/L (13-39); BUN Creatinine Ratio 32.1 (10-20); Bilirubin,Total 0.4 mg/dl (0.2-1.0); Blood Urea Nitrogen 17 mg/dl (6-23); Carbon Dioxide 19 mmol/L (21-32); Chloride 107 mmol/L (98-107); Est GFR (African American) 112.3 ml/min; Est GFR (Non-African American) 96.9 ml/min; Glucose 188 mg/dl (70-99(Fasting)); Magnesium 1.9 mg/dl (1.7-2.4); Potassium 3.3 mmol/L (3.5-5.1); Sodium 141 mmol/L (136-145); Total Protein 6.9 gm/dl (6.0-8.3)
[2022-08-06 21:17] LABS: INR 0.9 (0.9-1.1); Partial Thromboplastin Ratio 0.9; Partial Thromboplastin Time 25.6 Seconds (21.0-31.0); Prothrombin Time 10.1 Seconds (9.0-12.0)
[2022-08-06] MEDS ORDERED: methylPREDNISolone 20 MG in SYRINGE 0 ML IV STA (21:29)
[2022-08-06 21:30] LABS: Adenovirus PCR Not Detected (NotDetected); Bordetella parapertussis PCR Not Detected (NotDetected); Bordetella pertussis PCR Not Detected (NotDetected); Chlamydia pneumoniae PCR Not Detected (NotDetected); Coronavirus 229E PCR Not Detected (NotDetected); Coronavirus CoV-2 (COVID19)PCR Not Detected (NotDetected); Coronavirus HKU1 PCR Not Detected (NotDetected); Coronavirus NL63 PCR Not Detected (NotDetected); Coronavirus OC43PCR Not Detected (NotDetected); Human Metapneumovirus PCR Not Detected (NotDetected); Influenza A PCR Not Detected (NotDetected); Influenza B PCR Not Detected (NotDetected); Mycoplasma pneumoniae PCR Not Detected (NotDetected); Parainfluenza Virus 1 PCR Not Detected (NotDetected); Parainfluenza Virus 2 PCR Not Detected (NotDetected); Parainfluenza Virus 3 PCR Not Detected (NotDetected); Parainfluenza Virus 4 PCR Not Detected (NotDetected); Respiratory Syncytial VirusPCR Not Detected (NotDetected); Rhinovirus/Enterovirus PCR Not Detected (NotDetected)
[2022-08-06] MEDS ORDERED: LACTATED RINGER'S 1,000 ML IV ONE (21:30)
[2022-08-06 21:36] LABS: Appearance Urine Clear (Clear); Bacteria Urine Automated Negative (Negative); Bilirubin Urine Negative (Negative); Blood Urine Negative (Negative); Color Urine Yellow; Epithelial Cell Urine Auto >30 /lpf (0-5); Glucose Urine UA Negative (Negative); Ketones Urine Trace (Negative); Leukocyte Esterase Urine Trace (Negative); Nitrite Urine Negative (Negative); Protein Urine Negative (Negative); RBC Urine Automated 0-4 /hpf (0-4); Specific Gravity Urine 1.034 (1.000-1.030); Urobilinogen Urine Negative (Negative)
[2022-08-06 21:40] LABS: Base Excess ABG -4.5 mEq/L (-9-1.8); HCO3 ABG 21 mmol/L (19-24); Oxygen Saturation ABG 95.8 % (90-95); PCO2 ABG 40 mmHg (35-46); PO2 ABG 73 mmHg (80-95); pH ABG 7.33 (7.35-7.45)
[2022-08-06] MEDS ORDERED: MAGNESIUM SULFATE / D5W 1 GM/100 ML BAG IV ONE (21:45)
[2022-08-06 21:51] LABS: Allen Test Pos (Pos)
--- NOTE | 2022-08-06 22:02 | CT Scan Report ---
Exam(s): CT NECK With Contrast IV Amt: 117ml optiray 320 EXAM: CT Neck With Intravenous Contrast CLINICAL HISTORY: Reason for exam: hypoxia s/p chocking episode. TECHNIQUE: Axial computed tomography images of the neck with intravenous contrast. CTDI is 7.7 mGy and DLP is 254.95 mGy-cm. Automated exposure control was utilized for the study. A dose lowering technique was utilized adhering to the principles of ALARA. CONTRAST: Patient received 117ml optiray 320 of IV contrast COMPARISON: No relevant prior studies available. FINDINGS: Oropharynx: Unremarkable. No significant tonsillar enlargement. No peritonsillar abscess. Hypopharynx: Unremarkable. Larynx: Unremarkable. Normal epiglottis. Trachea: Unremarkable. Retropharyngeal space: Unremarkable. Submandibular/parotid glands: The submandibular and parotid glands are within normal limits. Thyroid: LEFT thyroid nodule measures 7 mm. Bones/joints: Cervical spondylosis and degenerative disc disease. No acute fracture. Soft tissues: Unremarkable. Vasculature: Atherosclerotic changes. Lymph nodes: Unremarkable. No lymphadenopathy. Esophagus: Unremarkable as visualized. No obstruction of the proximal esophagus. Refer to concomitant chest CT scan report. Lung apices: Airspace consolidation LEFT upper lobe. Refer to concomitant chest CT scan report. IMPRESSION: 1. No obstruction of the proximal esophagus. Refer to concomitant chest CT scan report. 2. Airspace consolidation LEFT upper lobe. Refer to concomitant chest CT scan report. Electronically signed by: Suleman Gardiner MD 08/06/22 22:02 PM
[2022-08-06] MEDS: POTASSIUM CHLORIDE / WTR 10 MEQ/100 ML PLCT IV SCH (22:13)
--- NOTE | 2022-08-06 22:13 | CT Scan Report ---
Exam(s): CTA CHEST IV Amt: 117ml optiray 320 EXAM: CT Angiography Chest With Intravenous Contrast CLINICAL HISTORY: Reason for exam: profound hypoxia after chocking episode. TECHNIQUE: Axial computed tomographic angiography images of the chest with intravenous contrast. CTDI is 12.86 mGy and DLP is 315.22 mGy-cm. Automated exposure control was utilized for the study. A dose lowering technique was utilized adhering to the principles of ALARA. MIP reconstructed images were created and reviewed. COMPARISON: No relevant prior studies available. FINDINGS: Pulmonary arteries: Unremarkable. No acute pulmonary embolism. Aorta: No acute findings. No thoracic aortic aneurysm. Lungs: Airspace consolidation in the LEFT upper lobe, with debris in the LEFT upper lobe bronchi, consistent with aspiration pneumonia. Pleural space: Unremarkable. No significant effusion. No pneumothorax. Heart: Unremarkable. No cardiomegaly. No significant pericardial effusion. No evidence of RV dysfunction. Mediastinum: Unremarkable. No obstruction of the esophagus. Bones/joints: No acute fracture. No dislocation. Soft tissues: Unremarkable. Lymph nodes: Unremarkable. No enlarged lymph nodes. IMPRESSION: 1. No acute pulmonary embolism. 2. No obstruction of the esophagus. 3. Airspace consolidation in the LEFT upper lobe, with debris in the LEFT upper lobe bronchi, consistent with aspiration pneumonia. Electronically signed by: Suleman Gardiner MD 08/06/22 22:11 PM
[2022-08-06] MEDS ORDERED: 0.2 MICRON FILTER SET 1 EACH IV STA (23:50)
[2022-08-06] MEDS ORDERED: STAT IV Infusion **Titration per Protocol STA (23:50)
[2022-08-06] MEDS ORDERED: AMIODARONE IV BOLUS & DRIP IV STA (23:50)
[2022-08-06] MEDS ORDERED: Heparin IV Adult Wt-Based Standard *NO* Bolus Protocol IV ONE (23:50)
[2022-08-06] MEDS ORDERED: AMIODARONE / D5W 150 MG/100 ML BAG IV STA (23:50)
[2022-08-06] MEDS ORDERED: Heparin IV Adult Wt-Based Standard *NO* Bolus Protocol IV STA (23:58)
[2022-08-07] MEDS ORDERED: AMIODARONE / D5W 360 MG/200 ML BAG IV ONE
--- NOTE | 2022-08-07 00:07 | Communication Note ---
Date of Service: August 06, 2022 Discussed case with [facility] provider Dr. Duff on patient arrival secondary to her hypoxia. Patient was out eating dinner with her where reports were she couldn't talk, or breathe following swallowing a piece of bread. states that 3 men assisted in getting her out of her wheel chair and giving Heimlich maneuver. She never expectorated any material, however was then able to talk and breathe and her color started to return to normal afterwards. She was brought to the EMD. Patient was hypoxic on arrival with CXR revealing left lower lobe consolidation and ABG on NRB 15 liters had a PaO2 34 with normal CO2. She was transitioned to CPAP 12 CmH20 with increase in her saturations. She is without dyspnea, or wheeze, and is talking in full sentences. CTA of the chest was obtained and imaging reviewed with my attending physician Dr. Lynn- She is without lobar collapse or occluded bronchus, and improved aeration noted following application of CPAP- currently no urgent/emergent need for bronchoscopy. She also had CT soft tissue of her neck that was without obstruction. Her PaO2 has increased to [address] scan and is without current airway compromise and has lung sounds in all [place]. Defer to hospitalist for admission placement. If further concerns arise consider pulmonary consultation. Continue with CPAP as well as pulmonary toileting for her aspiration pneumonitis. Please feel free to contact critical care if concerns arise or clinical course changes. Mahin SAINZ (ACNP-)
[2022-08-07] MEDS: POTASSIUM CHLORIDE / WTR 10 MEQ/100 ML PLCT IV SCH (00:31)
[2022-08-07] MEDS: HEPARIN SODIUM/DEXTROSE 25,000 UNITS/500 ML BAG IV SCH (01:10)
--- NOTE | 2022-08-07 01:24 | History & Physical Report ---
Date of Service August 07, 2022 Assessment & Plan (1) Acute hypoxemic respiratory failure: Plan: Secondary to aspiration pneumonia Severe sepsis SIRS plus lactic acidosis plus hypoxemia secondary to above New onset A-fib secondary to illness HTN, BP on the lower side colon cancer status post surgery history multiple sclerosis Hyperglycemia rule out DM past tobacco abuse. PCU Supplemental O2 Wean off BiPAP Solu-Medrol given severe hypoxemia secondary to pneumonia CS, clindamycin Aspiration precautions, swallow evaluation Monitor lactic acid response to IVF IV amiodarone for A-fib rate rhythm control given hypotension, appropriate to hold antihypertensive medications for now IV heparin for thromboembolic prophylaxis TTE, cardiology consult Re: New onset A-fib Check hemoglobin A1c DVT prophylaxis. IV heparin Full code Total critical care time was 45 minutes. Patient requesting updates from providers. Mr. Valdo Oneil, contact #[phone]. Text document was generated using [employer] voice recognition software. It may contain grammatical or spelling errors. Kindly contact undersigned for clarification of any documentation item in question. History of Present Illness Chief Complaint: Hypoxemia, choking Primary Care Provider: Judd Wise, History obtained from patient, family, and records. Medical history significant for HTN, colon cancer status post surgery, history multiple sclerosis, past tobacco abuse. Patient had a choking episode while eating some bread at a local restaurant. Patient noted to be cyanotic, O2 sats 80s on room air. Patient not sure if she passed out. Heimlich maneuver done at restaurant although patient has no recollection of intervention. Patient with cough and shortness of breath. Denies chest pain or headache or abdominal pain. No prior episodes of aspiration as per patient. Clindamycin and neb treatment administered at the ER. Lowest O2 sats of 60 to 70s documented at the ER. BiPAP initiated. 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 Allergies Allergy/AdvReac Type Severity Reaction Status Date / Time CHEPE Inhibitors Allergy Intermediate SHORTNESS Verified 08/06/22 20:56 OF BREATH Penicillins Allergy Intermediate swelling Verified 08/06/22 20:56 Altqgid-ZGQ-YwT Reductase Allergy Intermediate SHORTNESS Verified 08/06/22 20:56 Inhibitor OF BREATH [Glrdmfs-Prc-Reh Reductase Inhibitor] Home Medications Medication Instructions Recorded Confirmed Type amlodipine 5 mg tablet 5 mg PO HS 06/30/20 08/06/22 History cholecalciferol (vitamin D3) 25 1,000 unit PO QAM 06/30/20 08/06/22 History mcg (1,000 unit) tablet (Vitamin D3) diphenhydramine HCl 25 mg tablet 25 mg PO HS 06/30/20 08/06/22 History multivit with 1 tab PO QAM 06/30/20 08/06/22 History ddsqkaud-qqpd-VG-lutein 8 mg iron-400 mcg-300 mcg tablet (Centrum Silver Women) Past Med/Surg History Medical History History of colon cancer diagnosed 2011--sx Hypertension Multiple sclerosis wheelchair bound Wheelchair bound Surgical History History of appendectomy History of bilateral tubal ligation History of colon surgery (~2011) to remove colon cancer @ [facility] History of tooth extraction History of wisdom tooth extraction Family History Other No family history of adverse response to anesthesia Social History Smoking Status: Never smoker Second Hand Exposure: No; Do You Dip or Chew Tobacco: No; Tobacco Cessation Education Requested by Patient: No Hx Alcohol Use: No Hx Substance Use: No Preferred Language: Czech Communication Ability: Effective 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 Beliefs That Will Affect Care: None Current Living Situation: Spouse Other Information That Helps Us Care for You: No Feels Safe at Home: Yes Safety Concerns: Feels Safe At This Time Assistive Devices: Lift Chair and Wheelchair Review of Systems Review of Systems: As per HPI, all other systems reviewed and negative Physical Exam Physical Exam: GENERAL: Comfortable, pleasant, no respiratory distress SKIN: Normal color, warm HEENT: [place] palpebral conjunctivae, no ptosis, dry buccal mucosa, BiPAP in place NECK : Supple, no tenderness CHEST : Decreased breath sounds, no tenderness HEART : Irregular, no obvious murmurs ABDOMEN: Some distention, nontender EXTREMITIES : No LE swelling/tenderness, no other conspicuous deformities noted NEUROLOGIC : Coherent, no facial asymmetry, MMTS BLE, RUE 0/5, LUE 3/5, gait and stance not assessed Results & Data Results & Data Vital Signs (Past 12 Hours) Vital Signs Temp Pulse Pulse Resp BP BP Pulse Ox 08/07/22 00:11 128 H 08/07/22 00:56 99 H 20 114/84 96 08/07/22 00:12 127 H 22 119/67 92 08/06/22 23:25 124 H 19 91 08/06/22 21:30 91 08/06/22 19:48 36.4 C L 110 H 18 127/92 90 08/06/22 20:00 17 70 L 08/06/22 20:55 94 08/06/22 20:33 111 H 96 08/06/22 20:31 97/71 L 08/06/22 20:31 109 H 18 69 L 08/06/22 20:30 120 H 23 67 L 08/06/22 20:20 114 H 18 64 L 08/06/22 20:15 109 H 20 66 L 08/06/22 20:15 116/76 08/06/22 20:10 116 H 18 71 L 08/06/22 20:09 110/70 08/06/22 20:09 120 H 25 H 71 L 08/06/22 20:05 112 H 20 71 L 08/06/22 20:16 106 H 18 64 L 08/06/22 20:16 08/06/22 20:07 112 H O2 Del Method O2 Flow Rate FiO2 08/07/22 00:11 08/07/22 00:56 CPAP 90 08/07/22 00:12 CPAP 90 08/06/22 23:25 90 08/06/22 21:30 100 08/06/22 19:48 CPAP 08/06/22 20:00 High Flow Nasal Cannula 40 100 08/06/22 20:55 90 08/06/22 20:33 100 08/06/22 20:31 08/06/22 20:31 08/06/22 20:30 08/06/22 20:20 08/06/22 20:15 08/06/22 20:15 08/06/22 20:10 08/06/22 20:09 08/06/22 20:09 08/06/22 20:05 08/06/22 20:16 BiPAP 08/06/22 20:16 BiPAP 08/06/22 20:07 Laboratory Results Laboratory Results WBC 7.30 K/ul (4.8-10.8) 08/06/22 20:14 RBC 4.69 M/uL (4.20-5.40) 08/06/22 20:14 Hgb 15.0 g/dl (12.0-16.0) 08/06/22 20:14 POC Hgb 15.3 g/dl (12.0-16.0) 08/06/22 20:14 Hct 44.1 % (37.0-47.0) 08/06/22 20:14 POC Hct 45 % (37-47) 08/06/22 20:14 MCV 94.0 fL (80.0-100.0) 08/06/22 20:14 MCH 32.0 pg (25.0-34.0) 08/06/22 20:14 MCHC 34.0 g/dL (32.0-36.0) 08/06/22 20:14 RDW Std Deviation 53.1 fL (36.4-46.3) H 08/06/22 20:14 RDW Coeff of Nadira 15.4 % (11.5-14.5) H 08/06/22 20:14 Plt Count 267 K/uL (130-400) 08/06/22 20:14 MPV 10.0 fL (9.4-12.4) 08/06/22 20:14 Immature Gran % (Auto) 0.4 % 08/06/22 20:14 Neut % (Auto) 43.0 % 08/06/22 20:14 Lymph % (Auto) 46.3 % 08/06/22 20:14 [place] % (Auto) 7.9 % 08/06/22 20:14 Eos % (Auto) 1.9 % 08/06/22 20:14 Baso % (Auto) 0.5 % 08/06/22 20:14 Neut # (Auto) 3.13 K/uL (1.40-6.50) 08/06/22 20:14 Lymph # (Auto) 3.38 K/uL (1.2-3.4) 08/06/22 20:14 [place] # (Auto) 0.58 K/uL (0.11-0.59) 08/06/22 20:14 Eos # (Auto) 0.14 K/uL (0-0.50) 08/06/22 20:14 Baso # (Auto) 0.04 K/uL (0-0.2) 08/06/22 20:14 Immature Gran # (Auto) 0.03 K/uL (0.01-0.20) 08/06/22 20:14 PT 10.1 Seconds (9.0-12.0) 08/06/22 20:14 INR 0.9 (0.9-1.1) 08/06/22 20:14 APTT 25.6 Seconds (21.0-31.0) 08/06/22 20:14 PTT Ratio 0.9 08/06/22 20:14 POC pH 7.32 (7.35-7.45) L 08/06/22 20:21 POC pCO2 36 mmHg (35-46) 08/06/22 20:21 POC pO2 34 mmHg (80-95) L 08/06/22 20:21 POC HCO3 18 neva/L (19-24) L 08/06/22 20:21 POC Total CO2 19 mmol/L (24-31) L 08/06/22 20:21 POC Base Excess -8.0 neva/L (-9-1.8) 08/06/22 20:21 ABG pH 7.33 (7.35-7.45) L 08/06/22 21:30 ABG pCO2 40 mmHg (35-46) 08/06/22 21:30 ABG pO2 73 mmHg (80-95) L 08/06/22 21:30 ABG HCO3 21 mmol/L (19-24) 08/06/22 21:30 POC ABG O2 Sat 61.0 % (90-95) L 08/06/22 20:21 ABG O2 Saturation 95.8 % (90-95) H 08/06/22 21:30 ABG Base Excess -4.5 mEq/L (-9-1.8) 08/06/22 21:30 Jakub Test Pos (Pos) 08/06/22 21:30 Methemoglobin < 0.7 % (0.0-1.5) 08/06/22 21:30 Oxygen Given 90% BIPAP 08/06/22 21:30 POC Sodium 137 mmol/L (135-144) 08/06/22 20:14 Sodium 141 mmol/L (136-145) 08/06/22 20:14 POC Potassium 7.1 mmol/L (3.3-5.0) H* 08/06/22 20:14 Potassium 3.3 mmol/L (3.5-5.1) L 08/06/22 20:14 POC Chloride 111 mmol/L (101-112) 08/06/22 20:14 Chloride 107 mmol/L (98-107) 08/06/22 20:14 Carbon Dioxide 19 mmol/L (21-32) L 08/06/22 20:14 POC Total CO2 19 mmol/L (24-31) L 08/06/22 20:14 Anion Gap 15 (3-11) H 08/06/22 20:14 POC Anion Gap 16.0 mmol/L (16-25) 08/06/22 20:14 POC BUN 24 mg/dl (7-18) H 08/06/22 20:14 BUN 17 mg/dl (6-23) 08/06/22 20:14 Creatinine 0.53 mg/dl (0.6-1.2) L 08/06/22 20:14 POC Creatinine 0.5 mg/dl (0.6-1.3) L 08/06/22 20:14 Est Cr Clr Drug Dosing Not Reportable 08/06/22 20:14 Est GFR ( Amer) 112.3 ml/min 08/06/22 20:14 Est GFR (Non-Af Amer) 96.9 ml/min 08/06/22 20:14 BUN/Creatinine Ratio 32.1 (10-20) H 08/06/22 20:14 Glucose 188 mg/dl (70-99(Fasting)) H 08/06/22 20:14 POC Glucose (other) 180 mg/dl (70-99) H 08/06/22 20:14 Lactate 3.2 mmol/L (0.4-2.0) H* 08/06/22 21:36 Calcium 9.0 mg/dl (8.6-10.3) 08/06/22 20:14 POC Ioniz Calcium Feng 0.98 mmol/l (1.12-1.32) L 08/06/22 20:14 Magnesium 1.9 mg/dl (1.7-2.4) 08/06/22 20:14 Total Bilirubin 0.4 mg/dl (0.2-1.0) 08/06/22 20:14 AST 34 U/L (13-39) 08/06/22 20:14 ALT 44 U/L (7-52) 08/06/22 20:14 Alkaline Phosphatase 89 U/L (34-104) 08/06/22 20:14 Total Protein 6.9 gm/dl (6.0-8.3) 08/06/22 20:14 Albumin 3.9 gm/dl (3.4-5.0) 08/06/22 20:14 Globulin 3.0 gm/dl (2.5-4.0) 08/06/22 20:14 Albumin/Globulin Ratio 1.3 (0.9-2) 08/06/22 20:14 Urine Color Yellow 08/06/22 21: Urine Appearance Clear (Clear) 08/06/22 21: Urine pH 6.0 (4.5-7.5) 08/06/22 21:23 Ur Specific [place] 1.034 (1.000-1.030) H 08/06/22 21:23 Urine Protein Negative (Negative) 08/06/22 21: Urine Glucose (UA) Negative (Negative) 08/06/22 21: Urine Ketones Trace (Negative) H 08/06/22 21:23 Urine Blood Negative (Negative) 08/06/22 21: Urine Nitrite Negative (Negative) 08/06/22 21: Urine Bilirubin Negative (Negative) 08/06/22 21: Urine Urobilinogen Negative (Negative) 08/06/22 21:23 Ur Leukocyte Esterase Trace (Negative) H 08/06/22 21:23 Urine WBC (Auto) 1-5 /hpf (0-5) 08/06/22 21: Urine RBC (Auto) 0-4 /hpf (0-4) 08/06/22 21: U Hyaline Cast (Auto) 1-5 /lpf (0-5) 08/06/22 21: U Epithel Cells (Auto) >30 /lpf (0-5) H 05/02/23 21:23 Urine Bacteria (Auto) Negative (Negative) 08/06/22 21:23 Adenovirus (PCR) Not Detected (NotDetected) 08/06/22 20:14 B. pertussis DNA (PCR) Not Detected (NotDetected) 08/06/22 20:14 B.parapertussis DNA PCR Not Detected (NotDetected) 08/06/22 20:14 C. pneumoniae DNA (PCR) Not Detected (NotDetected) 08/06/22 20:14 Coronavirus OC43 (PCR) Not Detected (NotDetected) 08/06/22 20:14 Coronavirus HKU1 (PCR) Not Detected (NotDetected) 08/06/22 20:14 Coronavirus 229E (PCR) Not Detected (NotDetected) 08/06/22 20:14 SARS-CoV-2 (PCR) Not Detected (NotDetected) 08/06/22 20:14 Coronavirus NL63 (PCR) Not Detected (NotDetected) 08/06/22 20:14 Human Metapneumovir PCR Not Detected (NotDetected) 08/06/22 20:14 Influenza Type A (PCR) Not Detected (NotDetected) 08/06/22 20:14 Influenza Type B (PCR) Not Detected (NotDetected) 08/06/22 20:14 M. pneumoniae (PCR) Not Detected (NotDetected) 08/06/22 20:14 Parainfluenza 1 (PCR) Not Detected (NotDetected) 08/06/22 20:14 Parainfluenza 2 (PCR) Not Detected (NotDetected) 08/06/22 20:14 Parainfluenza 3 (PCR) Not Detected (NotDetected) 08/06/22 20:14 Parainfluenza 4 (PCR) Not Detected (NotDetected) 08/06/22 20:14 RSV (PCR) Not Detected (NotDetected) 08/06/22 20:14 Entero/Rhino (PCR) Not Detected (NotDetected) 08/06/22 20:14 Impressions Chest CTA 08/06/22 20:06 Exam(s): CTA CHEST IV Amt: 117ml optiray 320 EXAM: CT Angiography Chest With Intravenous Contrast CLINICAL HISTORY: Reason for exam: profound hypoxia after chocking episode. TECHNIQUE: Axial computed tomographic angiography images of the chest with intravenous contrast. CTDI is 12.86 mGy and DLP is 315.22 mGy-cm. Automated exposure control was utilized for the study. A dose lowering technique was utilized adhering to the principles of ALARA. MIP reconstructed images were created and reviewed. COMPARISON: No relevant prior studies available. FINDINGS: Pulmonary arteries: Unremarkable. No acute pulmonary embolism. Aorta: No acute findings. No thoracic aortic aneurysm. Lungs: Airspace consolidation in the LEFT upper lobe, with debris in the LEFT upper lobe bronchi, consistent with aspiration pneumonia. Pleural space: Unremarkable. No significant effusion. No pneumothorax. Heart: Unremarkable. No cardiomegaly. No significant pericardial effusion. No evidence of RV dysfunction. Mediastinum: Unremarkable. No obstruction of the esophagus. Bones/joints: No acute fracture. No dislocation. Soft tissues: Unremarkable. Lymph nodes: Unremarkable. No enlarged lymph nodes. IMPRESSION: 1. No acute pulmonary embolism. 2. No obstruction of the esophagus. 3. Airspace consolidation in the LEFT upper lobe, with debris in the LEFT upper lobe bronchi, consistent with aspiration pneumonia. Electronically signed by: Suleman Gardiner MD 08/06/22 22:11 PM Soft Tissue Neck CT 08/06/22 20:06 Exam(s): CT NECK With Contrast IV Amt: 117ml optiray 320 EXAM: CT Neck With Intravenous Contrast CLINICAL HISTORY: Reason for exam: hypoxia s/p chocking episode. TECHNIQUE: Axial computed tomography images of the neck with intravenous contrast. CTDI is 7.7 mGy and DLP is 254.95 mGy-cm. Automated exposure control was utilized for the study. A dose lowering technique was utilized adhering to the principles of ALARA. CONTRAST: Patient received 117ml optiray 320 of IV contrast COMPARISON: No relevant prior studies available. FINDINGS: Oropharynx: Unremarkable. No significant tonsillar enlargement. No peritonsillar abscess. Hypopharynx: Unremarkable. Larynx: Unremarkable. Normal epiglottis. Trachea: Unremarkable. Retropharyngeal space: Unremarkable. Submandibular/parotid glands: The submandibular and parotid glands are within normal limits. Thyroid: LEFT thyroid nodule measures 7 mm. Bones/joints: Cervical spondylosis and degenerative disc disease. No acute fracture. Soft tissues: Unremarkable. Vasculature: Atherosclerotic changes. Lymph nodes: Unremarkable. No lymphadenopathy. Esophagus: Unremarkable as visualized. No obstruction of the proximal esophagus. Refer to concomitant chest CT scan report. Lung apices: Airspace consolidation LEFT upper lobe. Refer to concomitant chest CT scan report. IMPRESSION: 1. No obstruction of the proximal esophagus. Refer to concomitant chest CT scan report. 2. Airspace consolidation LEFT upper lobe. Refer to concomitant chest CT scan report. Electronically signed by: Suleman Gardiner MD 08/06/22 22:02 PM Diagnostic Findings EKG as per my interpretation : Rate 120, A-fib, normal axis, no ischemia
[2022-08-07] MEDS ORDERED: NSS + 20MEQ KCL 20 MEQ/1,000 ML BAG IV STA (01:36)
[2022-08-07] MEDS ORDERED: PROMETHAZINE HCL 6.25 MG in SODIUM CHLORIDE 0.9% 50 ML IV PRN (02:31)
[2022-08-07] MEDS ORDERED: ACETAMINOPHEN 325 MG TAB PO PRN (02:31)
[2022-08-07] MEDS: CLINDAMYCIN/D5W 600 MG/50 ML BAG IV SCH ×3 (03:19→20:11)
[2022-08-07] MEDS ORDERED: AMIODARONE / D5W 360 MG/200 ML BAG IV SCH (06:00)
[2022-08-07] MEDS ORDERED: IPRATROPIUM BROMIDE NEB SOLN 0.02% 2.5 ML VIAL INH SCH (07:00)
[2022-08-07] MEDS ORDERED: LEVALBUTEROL 1.25MG/0.5ML NEB INH SCH (07:00)
[2022-08-07] MEDS ORDERED: XOPENEX/ATROVENT 1.25mg/0.5MG NEB COMBO NEB SCH (07:00)
[2022-08-07] MEDS: LEVALBUTEROL 1.25MG/0.5ML NEB INH SCH ×3 (07:12→19:35)
[2022-08-07] MEDS: IPRATROPIUM BROMIDE NEB SOLN 0.02% 2.5 ML VIAL INH SCH ×3 (07:12→19:35)
[2022-08-07 07:22] LABS: Hematocrit (blood only) 39.7 % (37.0-47.0); Hemoglobin 13.8 g/dl (12.0-16.0); Mean Corpuscular Hemoglobin 32.1 pg (25.0-34.0); Mean Corpuscular Hgb Conc 34.8 g/dL (32.0-36.0); Mean Corpuscular Volume 92.3 fL (80.0-100.0); Mean Platelet Volume 9.9 fL (9.4-12.4); Platelet Count 233 K/uL (130-400); RDW Coefficient of Variation 15.1 % (11.5-14.5); RDW Standard Deviation 51.1 fL (36.4-46.3); White Blood Count 13.43 K/ul (4.8-10.8)
[2022-08-07 07:41] LABS: Basophils # (auto) 0.02 K/uL (0-0.2); Basophils % (auto) 0.1 %; Immature Granulocytes # (auto) 0.07 K/uL (0.01-0.20); Immature Granulocytes % (auto) 0.5 %; Lymphocytes # (auto) 0.65 K/uL (1.2-3.4); Lymphocytes % (auto) 4.8 %; Monocytes # (auto) 0.22 K/uL (0.11-0.59); Monocytes % (auto) 1.6 %; Neutrophils # (auto) 12.47 K/uL (1.40-6.50)
[2022-08-07 07:58] LABS: BUN Creatinine Ratio 21.6 (10-20); Calcium 8.3 mg/dl (8.6-10.3); Creatinine Clr Calc Pharmacy 91.1 ml/min; Est GFR (African American) 113.7 ml/min; Est GFR (Non-African American) 98.1 ml/min; Potassium 4.7 mmol/L (3.5-5.1)
[2022-08-07 07:59] LABS: Estimated Average Glucose 103 mg/dl; Hemoglobin A1C 5.2 % (4.5-5.6)
[2022-08-07 08:15] LABS: Partial Thromboplastin Ratio 2.9
[2022-08-07 08:18] LABS: Partial Thromboplastin Time 81.9 Seconds (21.0-31.0)
--- NOTE | 2022-08-07 08:25 | XRay Report ---
SINGLE VIEW CHEST CLINICAL HISTORY: Dyspnea FINDINGS: 2 AP, portable, upright chest radiographs are compared to study dated 01/24/2016. The exami nation is degraded by portable technique and patient rotation. The cardiomediastinal silhouette is un remarkable. Chronic interstitial thickening is similar to previous. There is dense airspace consolida tion at the left lung base. The right lung appears clear. No large pleural effusion or pneumothorax i s seen. The skeletal structures are osteopenic. The bony thorax is grossly intact. IMPRESSION: Dense airspace consolidation at the left lung base is typical for pneumonia/aspiration pn eumonitis. Clinical correlation will be required and radiographic follow-up to resolution is recommen ded. ACT 112: Negative or not required by law. Electronically signed by: Mo Friedman M.D. 08/07/2022 8:24 AM
--- NOTE | 2022-08-07 08:31 | Cardiology Consultation ---
Date of Consultation August 07, 2022 Assessment & Plan (1) Acute hypoxemic respiratory failure: (2) Aspiration into airway: (3) Atrial fibrillation with RVR: Plan Patient admitted for acute respiratory failure with hypoxia after a choking event requiring successful Heimlich maneuver complicated by aspiration. Incidentally found to have afib RVR on admission EKG. Likely afib started during acute hypoxic event. No prior history of atrial fibrillation. Patient converted to NSR with IV amiodarone overnight. Currently NSR. Echo with normal LV systolic function and no significant valvular heart disease. Repeat EKG this morning demonstrating NSR with prolonged QT interval. Stop IV amiodarone Start low dose metoprolol 25 mg - 1/2 tab daily and titrate as tolerated Continue IV heparin for now for stroke prophylaxis. [id number] score of 3 (Sex, age, HTN), and would possibly recommend Eliquis 5 mg BID for at least 30 days on discharge given recent events. Treatment of aspiration pneumonia by hospitalist with antibiotics, steroids and supportive care. Case discussed with Dr. Keyes I spent a total of 60 minutes on the date of service in preparation, delivery, and documentation of the care provided to this patient, excluding any time spent in the performance of separately billed services. Alina Mg PA-C Department of Cardiology, [facility] This chart was completed in part utilizing Speech Voice Recognition Software. Grammatical errors, random word insertions, prounoun errors, and incomplete sentences are an occasional consequence of this system due to software limitations, ambient noise, and hardware issues. Any formal questions or concerns about the content, text, or information contained within the body of this dictation should be directly addressed to the provider for clarification. Supervising Physician Co-Signing Physician Notes Supervising Physician Attestation: I have personally performed a history and physical examination on the patient. I agree with the physician digital sales assistant's findings and plan as documented with the following additions. Subjective: Patient resting comfortably the time my assessment. Sinus rhythm noted on telemetry, having converted at 12:42 AM while on amiodarone infusion which has since been discontinued. At baseline, patient utilizes a motorized wheelchair and motorized mechanism for traveling up the stairs in her home. She is accompanied by her at the bedside. Exam: Cardiovascular: Regular rhythm, no murmurs, no edema Data: As noted above Assessment and Plan: Newly recognized atrial fibrillation in the setting of hypoxia incident, choking. CT suggestion of aspiration pneumonia for which she is on clindamycin. -- Amiodarone has been discontinued in favor of metoprolol succinate 12.5 mg daily for now. -May warrant at least a short-term course of anticoagulation, perhaps Eliquis for 30 days pending further assessment. For now, continue heparin pending swallowing evaluation plan for 08/08/2022 DVT prophylaxis: She is on full dose anticoagulation with heparin. Luis Alberto Keyes, History of Present Illness Reason for Consultation: AFib RVR; Aspiration pneumonitis Requesting Physician: Dr. Robledo Attending Physician: Dr. Keyes History of Present Illness Patient is a 67 year old female without known cardiovascular disease or history History includes: 1. Paraplegia due to Multiple sclerosis 3. Hypertension 4. History of colon CA Patient was eating at restaurant yesterday with and choked on piece of bread. and bystanders able to do Heimlich maneuver successfully. Unfortunately patient aspirated and was hypoxic with SOB after spell and brought to ER. Chest xray with pneumonia/pneumonitis. Required BIPAP due to hypoxia and started on antibiotics, steroids, nebs. She was incidentally found to have afib RVR on admission EKG. New diagnosis. Likely started during acute event, but true duration unknown. Patient denies history of arrhythmia. Saw PCP several weeks ago without mention of arrhythmia on exam. She was started on IV amiodarone and converted to NSR last evening. Started on IV heparin. At time of consult, patient resting in bed, feeling better. Still with cough and SOB. On BIPAP this morning but oxygen status improving. No chest pain. Remains in NSR. EKG repeated this morning demonstrating NSR with prolonged QT interval. No chest pain. Allergies Allergy/AdvReac Type Severity Reaction Status Date / Time CHEPE Inhibitors Allergy Intermediate SHORTNESS Verified 08/06/22 20:56 OF BREATH Penicillins Allergy Intermediate swelling Verified 08/06/22 20:56 Lvcxira-LNE-OcL Reductase Allergy Intermediate SHORTNESS Verified 08/06/22 20:56 Inhibitor OF BREATH [Gxfivdu-Mre-Yds Reductase Inhibitor] Home Medications Medication Instructions Recorded Confirmed Type amlodipine 5 mg tablet 5 mg PO HS 06/30/20 08/06/22 History cholecalciferol (vitamin D3) 25 1,000 unit PO QAM 06/30/20 08/06/22 History mcg (1,000 unit) tablet (Vitamin D3) diphenhydramine HCl 25 mg tablet 25 mg PO HS 06/30/20 08/06/22 History multivit with 1 tab PO QAM 06/30/20 08/06/22 History vngrxnfx-zial-JW-lutein 8 mg iron-400 mcg-300 mcg tablet (Centrum Silver Women) Patient History Medical History History of colon cancer diagnosed 2011--sx Hypertension Multiple sclerosis wheelchair bound Wheelchair bound Surgical History History of appendectomy History of bilateral tubal ligation History of colon surgery (~2011) to remove colon cancer @ [facility] History of tooth extraction History of wisdom tooth extraction Family History Other No family history of adverse response to anesthesia Social History Smoking Status: Never smoker Second Hand Exposure: No; Do You Dip or Chew Tobacco: No; Tobacco Cessation Education Requested by Patient: No Hx Alcohol Use: No Hx Substance Use: No Preferred Language: Ethiopian Communication Ability: Effective Breaker Mechanic Required: No Beliefs That Will Affect Care: None Current Living Situation: Spouse Other Information That Helps Us Care for You: No Feels Safe at Home: Yes Safety Concerns: Feels Safe At This Time Assistive Devices: Lift Chair and Wheelchair Review of Systems Review of Systems: All systems reviewed & are unremarkable except as noted in HPI & below Physical Exam Constitutional: + ill appearing and + physical limitations Respiratory: + cough and + tachypneic Auscultation: + crackles and + rhonchi Cardiovascular: Rate/Rhythm: regular rate and regular rhythm Vessels: no JVD Extremities: no edema (legs atrophied) Gastrointestinal (Abdomen): normal bowel sounds, soft, nontender, no hepatosplenomegaly Skin: no rashes, warm and dry Results & Data Vital Signs (Past 12 Hours) Vital Signs Temp Pulse Pulse Resp BP BP Pulse Ox 08/07/22 07:41 36.5 C 88 22 118/73 100 08/07/22 07:16 87 24 99 08/07/22 07:15 87 24 99 08/07/22 03:00 93 H 08/07/22 03:00 08/07/22 03:00 85 20 94 08/07/22 02:45 36.4 C L 94 H 18 139/88 95 08/07/22 01:42 96 H 97 08/07/22 01:49 93 H 22 148/84 H 97 08/07/22 00:11 128 H 08/07/22 00:56 99 H 20 114/84 96 08/07/22 00:12 127 H 22 119/67 92 08/06/22 23:25 124 H 19 91 08/06/22 21:30 91 08/06/22 20:55 94 08/06/22 20:33 111 H 96 O2 Del Method FiO2 08/07/22 07:41 BiPAP 08/07/22 07:16 75 08/07/22 07:15 CPAP 75 08/07/22 03:00 08/07/22 03:00 CPAP 75 08/07/22 03:00 75 08/07/22 02:45 CPAP 0.75 08/07/22 01:42 80 08/07/22 01:49 CPAP 90 08/07/22 00:11 08/07/22 00:56 CPAP 90 08/07/22 00:12 CPAP 90 08/06/22 23:25 90 08/06/22 21:30 100 08/06/22 20:55 90 08/06/22 20:33 100 Laboratory Results Cardiac Enzymes 08/06/22 Range/Units 20:14 AST 34 (13-39) U/L Coagulation 08/06/22 08/07/22 Range/Units 20:14 07:03 PT 10.1 (9.0-12.0) Seconds APTT 25.6 81.9 H* (21.0-31.0) Seconds CBC 08/06/22 08/07/22 Range/Units 20:14 07:03 WBC 7.30 13.43 H (4.8-10.8) K/ul RBC 4.69 4.30 (4.20-5.40) M/uL Hgb 15.0 13.8 (12.0-16.0) g/dl Hct 44.1 39.7 (37.0-47.0) % Plt Count 267 233 (130-400) K/uL Neut # (Auto) 3.13 12.47 H (1.40-6.50) K/uL Lymph # (Auto) 3.38 0.65 L (1.2-3.4) K/uL [place] # (Auto) 0.58 0.22 (0.11-0.59) K/uL Eos # (Auto) 0.14 0.00 (0-0.50) K/uL Baso # (Auto) 0.04 0.02 (0-0.2) K/uL Comprehensive Metabolic Panel 08/06/22 08/07/22 Range/Units 20:14 07:03 Sodium 141 137 (136-145) mmol/L Potassium 3.3 L 4.7 D (3.5-5.1) mmol/L Chloride 107 105 (98-107) mmol/L Carbon Dioxide 19 L 24 (21-32) mmol/L BUN 17 11 (6-23) mg/dl Creatinine 0.53 L 0.51 L (0.6-1.2) mg/dl Glucose 188 H 189 H (70-99(Fasting)) mg/dl Calcium 9.0 8.3 L (8.6-10.3) mg/dl AST 34 (13-39) U/L ALT 44 (7-52) U/L Alkaline Phosphatase 89 (34-104) U/L Total Protein 6.9 (6.0-8.3) gm/dl Albumin 3.9 (3.4-5.0) gm/dl Intake and Output 08/06/22 08/07/22 08/07/22 22:59 06:59 14:59 Intake Total 610 / 2260 1650 / 2260 277.419 / 277.419 Output Total 500 / 500 Balance 610 / 1760 1150 / 1760 277.419 / 277.419 Intake: IV 610 / 2260 1650 / 2260 277.419 / 277.419 Amiodarone / D5w 150 mg In 100 100 / 100 ml @ 600 mls/hr IV NOW STA Rx#: [id number] Amiodarone / D5w 360 mg In 200 200 / 200 73.202 / 73.202 ml @ 0.5 MG/MIN 16.667 mls/hr IV .Q12H [facility] Rx#:[id number] Calcium Gluconate 1,000 mg In 60 / 60 60 ml @ 240 mls/hr IV NOW STA Rx#:[id number] Clindamycin/D5w 600 mg In 50 ml 50 / 50 50 / 50 @ 100 mls/hr IV Q8H [facility] Rx#: [id number] Clindamycin/D5w 900 mg In 50 ml 50 / 50 @ 100 mls/hr IV NOW ONE Rx#: [id number] Heparin Sodium/Dextrose 25,000 154.217 / 154.217 units In 500 ml @ 950 UNITS/HR 19 mls/hr IV .Q24H [facility] Rx#: [id number] Lactated Ringer's 1,000 ml @ 1000 / 1000 200 mls/hr IV .Q5H [facility] Rx#: [id number] Magnesium Sulfate / D5w 1 gm In 100 / 100 100 ml @ 50 mls/hr IV ONE ONE Rx#:[id number] Potassium Chloride / Wtr 10 meq 200 / 200 In 100 ml @ 100 mls/hr IV Q1H [facility] Rx#:[id number] Sodium Chloride 0.9% 1000ML 500 500 / 500 ml @ 999 mls/hr IV .Q31M [facility] Rx#:[id number] Output: Urine Amount (Catheter) 500 / 500 Kahn/Indwelling 500 / 500 Other: Other Intake Source NPO Weight 5.443 kg 55.4 kg Weight Measurement Method Built in [facility] Built in [facility] Diagnostic Findings Telemetry reviewed: Currently NSR in the 70's. Converted from afib RVR to NSR around 12:45 AM this morning EKG this morning: Normal sinus rhythm Possible Left atrial enlargement Prolonged QT 448/510 ms Sinus rhythm has replaced Atrial fibrillation Vent. rate has decreased BY 40 BPM EKG on admission last night: Atrial fibrillation with rapid ventricular response Nonspecific ST abnormality Echo report reviewed dated 08/07/22: Sinus rhythm was present during echo. LV wall motion is normal. Ejection fraction 55 to 60%. Grade 1 diastolic dysfunction. Aortic valve is not well-visualized. No aortic stenosis or aortic regurgitation on Doppler. Chest CTA 08/06/22 20:06 Exam(s): CTA CHEST IV Amt: 117ml optiray 320 EXAM: CT Angiography Chest With Intravenous Contrast CLINICAL HISTORY: Reason for exam: profound hypoxia after chocking episode. TECHNIQUE: Axial computed tomographic angiography images of the chest with intravenous contrast. CTDI is 12.86 mGy and DLP is 315.22 mGy-cm. Automated exposure control was utilized for the study. A dose lowering technique was utilized adhering to the principles of ALARA. MIP reconstructed images were created and reviewed. COMPARISON: No relevant prior studies available. FINDINGS: Pulmonary arteries: Unremarkable. No acute pulmonary embolism. Aorta: No acute findings. No thoracic aortic aneurysm. Lungs: Airspace consolidation in the LEFT upper lobe, with debris in the LEFT upper lobe bronchi, consistent with aspiration pneumonia. Pleural space: Unremarkable. No significant effusion. No pneumothorax. Heart: Unremarkable. No cardiomegaly. No significant pericardial effusion. No evidence of RV dysfunction. Mediastinum: Unremarkable. No obstruction of the esophagus. Bones/joints: No acute fracture. No dislocation. Soft tissues: Unremarkable. Lymph nodes: Unremarkable. No enlarged lymph nodes. IMPRESSION: 1. No acute pulmonary embolism. 2. No obstruction of the esophagus. 3. Airspace consolidation in the LEFT upper lobe, with debris in the LEFT upper lobe bronchi, consistent with aspiration pneumonia. Electronically signed by: Suleman Gardiner MD 08/06/22 22:11 PM Chest X-Ray 08/06/22 20:06 SINGLE VIEW CHEST CLINICAL HISTORY: Dyspnea FINDINGS: 2 AP, portable, upright chest radiographs are compared to study dated 01/24/2016. The examination is degraded by portable technique and patient rotation. The cardiomediastinal silhouette is unremarkable. Chronic interstitial thickening is similar to previous. There is dense airspace consolidation at the left lung base. The right lung appears clear. No large pleural effusion or pneumothorax is seen. The skeletal structures are osteopenic. The bony thorax is grossly intact. IMPRESSION: Dense airspace consolidation at the left lung base is typical for pneumonia/aspiration pneumonitis. Clinical correlation will be required and radiographic follow-up to resolution is recommended. Soft Tissue Neck CT 08/06/22 20:06 Exam(s): CT NECK With Contrast IV Amt: 117ml optiray 320 EXAM: CT Neck With Intravenous Contrast CLINICAL HISTORY: Reason for exam: hypoxia s/p chocking episode. TECHNIQUE: Axial computed tomography images of the neck with intravenous contrast. CTDI is 7.7 mGy and DLP is 254.95 mGy-cm. Automated exposure control was utilized for the study. A dose lowering technique was utilized adhering to the principles of ALARA. CONTRAST: Patient received 117ml optiray 320 of IV contrast COMPARISON: No relevant prior studies available. FINDINGS: Oropharynx: Unremarkable. No significant tonsillar enlargement. No peritonsillar abscess. Hypopharynx: Unremarkable. Larynx: Unremarkable. Normal epiglottis. Trachea: Unremarkable. Retropharyngeal space: Unremarkable. Submandibular/parotid glands: The submandibular and parotid glands are within normal limits. Thyroid: LEFT thyroid nodule measures 7 mm. Bones/joints: Cervical spondylosis and degenerative disc disease. No acute fracture. Soft tissues: Unremarkable. Vasculature: Atherosclerotic changes. Lymph nodes: Unremarkable. No lymphadenopathy. Esophagus: Unremarkable as visualized. No obstruction of the proximal esophagus. Refer to concomitant chest CT scan report. Lung apices: Airspace consolidation LEFT upper lobe. Refer to concomitant chest CT scan report. IMPRESSION: 1. No obstruction of the proximal esophagus. Refer to concomitant chest CT scan report. 2. Airspace consolidation LEFT upper lobe. Refer to concomitant chest CT scan report. Medications Administered Current Inpatient Medications Acetaminophen (Acetaminophen 325 Mg Tab) 650 mg PO Q4H PRN PRN Reason: Pain or Fever Stop: 09/06/22 02:30 Heparin Sodium/Dextrose (Heparin Sodium/Dextrose) 25,000 units in 500 mls @ 18 mls/hr IV .Q24H [facility]; Protocol Stop: 09/06/22 00:14 Last Titration: 08/07/22 09:17 Dose: 900 units/hr, 18 mls/hr Potassium Chloride/Sodium Chloride (Normal Saline W/20 Meq Kcl) 20 meq in 1,000 mls @ 75 mls/hr IV .[id number] [facility]; Protocol Stop: 08/07/22 14:55 Last Admin: 08/07/22 04:00 Dose: 75 mls/hr Clindamycin Phosphate (Cleocin/D5w) 600 mg in 50 mls @ 100 mls/hr IV Q8H [facility] Stop: 08/14/22 03:59 Last Infusion: 08/07/22 11:48 Dose: Infused Promethazine HCl 6.25 mg/ (Sodium Chloride) 50.25 mls @ 201 mls/hr IV Q6H PRN PRN Reason: Nausea And Vomiting Stop: 09/06/22 02:30 Ipratropium [place] (Ipratropium [place] Neb Soln 0.02% 2.5 Ml Vial) 0.5 mg INH Q6R [facility] Stop: 09/06/22 06:59 Last Admin: 08/07/22 12:34 Dose: 0.5 mg Levalbuterol HCl (Levalbuterol 1.25mg/0.5ml Neb) 1.25 mg INH Q6R [facility] Stop: 09/06/22 06:59 Last Admin: 08/07/22 12:34 Dose: 1.25 mg Metoprolol Succinate (Metoprolol Succ 25mg Ext Rel Tab) 12.5 mg PO QAM [facility] Stop: 09/06/22 10:29 Last Admin: 08/07/22 11:09 Dose: 12.5 mg Multivitamins/Minerals (Cerovite Adv Formula Tab) 1 tab PO QAM [facility] Stop: 09/06/22 08:59 Last Admin: 08/07/22 08:56 Dose: Not Given (2) Aspiration into airway Encounter type: initial encounter Qualified Code(s): T17.908A - Unspecified foreign body in respiratory tract, part unspecified causing other injury, initial encounter
[2022-08-07] MEDS: CEROVITE ADV FORMULA TAB PO SCH (08:56)
[2022-08-07] MEDS: METOPROLOL SUCC 25MG EXT REL TAB PO SCH (11:09)
--- NOTE | 2022-08-07 13:20 | Electrocardiogram Report ---
Test Reason : Blood Pressure : / mmHG Vent. Rate : 118 BPM Atrial Rate : 000 BPM P-R Int : 000 ms QRS Dur : 096 ms QT Int : 350 ms P-R-T Axes : 000 040 072 degrees QTc Int : 490 ms Atrial fibrillation with rapid ventricular response Nonspecific ST abnormality Abnormal ECG When compared with ECG of 24-JAN-2016 16:08, Atrial fibrillation has replaced Sinus rhythm Vent. rate has increased BY 45 BPM Non-specific change in ST segment in Inferior leads Confirmed by Raffi Villalta ([id number]) on 08/07/2022 1:19:59 PM Referred By: REFERRED SELF Confirmed By:Raffi Villalta
--- NOTE | 2022-08-07 14:04 | Electrocardiogram Report ---
Test Reason : Blood Pressure : / mmHG Vent. Rate : 078 BPM Atrial Rate : 078 BPM P-R Int : 194 ms QRS Dur : 086 ms QT Int : 400 ms P-R-T Axes : 059 035 062 degrees QTc Int : 456 ms Normal sinus rhythm Possible Left atrial enlargement Borderline ECG When compared with ECG of 06-AUG-2022 20:22, (unconfirmed) Sinus rhythm has replaced Atrial fibrillation Vent. rate has decreased BY 40 BPM Non-specific change in ST segment in Lateral leads Confirmed by Raffi Villalta ([id number]) on 08/07/2022 2:04:11 PM Referred By: REFERRED SELF Confirmed By:Raffi Villalta
[2022-08-07 16:14] LABS: Partial Thromboplastin Ratio 4.6
[2022-08-07 16:28] LABS: Partial Thromboplastin Time 129.5 Seconds (21.0-31.0)
--- NOTE | 2022-08-07 18:11 | Hospitalist Progress Note ---
Date of Service August 07, 2022 Assessment & Plan (1) Acute hypoxemic respiratory failure: Plan: Acute respiratory failure with hypoxia Secondary to aspiration pneumonia Severe sepsis Lactic acidosis --Chest CTA:No acute pulmonary embolism. No obstruction of the esophagus. Airspace consolidation in the LEFT upper lobe, with debris in the LEFT upper lobe bronchi, consistent with aspiration pneumonia. --Neck CT:No obstruction of the proximal esophagus. Refer to concomitant chest CT scan report. Airspace consolidation LEFT upper lobe. Refer to concomitant chest CT scan report. -- Continue IV antibiotic Speech therapy evaluated Aspiration precautions Wean off of supplemental oxygen as able Video swallow eval as able Atrial fibrillation with RVR Likely secondary to above Converted to sinus with IV amiodarone overnight -ECHO: Left ventricle wall motion is normal. EF 55 to 60%. Grade 1 diastolic dysfunction. Aortic valve is not well-visualized. No aortic stenosis or aortic regurgitation on Doppler assessment -Started on metoprolol On IV heparin for anticoagulation Appreciate cardiology input HTN BP low Hold amlodipine Monitor Colon cancer S/P surgery H/O Multiple sclerosis Ambulatory dysfunction--wheelchair-bound at baseline DVT Px: on IV heparin Code Status Full code Admission and Anticipated Discharge Date Admission Date: August 07, 2022 Subjective Patient is seen and examined at bedside States feeling tired today Had speech therapy evaluation earlier today Denies any chest pain, dyspnea, dizziness, nausea, abdominal pain Discussed with patient's at bedside Review of Systems Review of Systems: All systems reviewed & are unremarkable except as noted in Subjective Physical Exam Physical Exam: Physical Exam: Vitals signs as noted above General Appearance:Moderately built and nourished, no apparent distress Head: normocephalic, Atraumatic Eyes: normal inspection, EOMI Neck: supple, Trachea midline Respiratory/Chest: Decreased breath sounds, CTA, No accessory muscle use Cardiovascular: S1, S2, No murmur Abdomen/GI:Soft, Non tender, Bowel sounds present Extremities/Musculoskeletal:normal inspection, no edema Neurologic/Psych:AAOX2, left upper extremity 3/5, paraplegia of bilateral lower extremity, right upper extremity--Baseline per family Skin: normal color, warm Results & Data Results & Data Vital Signs (Past 12 Hours) Vital Signs Temp Pulse Pulse Pulse Resp BP Pulse Ox 08/07/22 15:27 36.8 C 78 19 101/61 94 08/07/22 15:08 74 08/07/22 12:36 75 20 97 08/07/22 11:38 36.9 C 79 19 100/65 98 08/07/22 08:00 74 08/07/22 08:00 08/07/22 07:41 36.5 C 88 22 118/73 100 08/07/22 07:16 87 24 99 08/07/22 07:15 87 24 99 O2 Del Method O2 Flow Rate FiO2 08/07/22 15:27 Room Air 08/07/22 15:08 08/07/22 12:36 Room Air 08/07/22 11:38 Nasal Cannula 2 08/07/22 08:00 08/07/22 08:00 Nasal Cannula 3 08/07/22 07:41 BiPAP 08/07/22 07:16 75 08/07/22 07:15 CPAP 75 Laboratory Results Short CBC 08/06/22 08/07/22 Range/Units 20:14 07:03 WBC 7.30 13.43 H (4.8-10.8) K/ul Hgb 15.0 13.8 (12.0-16.0) g/dl Hct 44.1 39.7 (37.0-47.0) % Plt Count 267 233 (130-400) K/uL BMP 08/06/22 08/07/22 20:14 07:03 Sodium 141 137 Potassium 3.3 L 4.7 D Chloride 107 105 Carbon Dioxide 19 L 24 BUN 17 11 Creatinine 0.53 L 0.51 L Glucose 188 H 189 H Calcium 9.0 8.3 L Liver Function 08/06/22 Range/Units 20:14 Total Bilirubin 0.4 (0.2-1.0) mg/dl AST 34 (13-39) U/L ALT 44 (7-52) U/L Alkaline Phosphatase 89 (34-104) U/L Albumin 3.9 (3.4-5.0) gm/dl Urine 08/06/22 Range/Units 21:23 Urine Color Yellow Urine Appearance Clear (Clear) Urine pH 6.0 (4.5-7.5) Ur Specific [place] 1.034 H (1.000-1.030) Urine Protein Negative (Negative) Urine Glucose (UA) Negative (Negative)
[2022-08-08] MEDS: LEVALBUTEROL 1.25MG/0.5ML NEB INH SCH ×3 (01:25→13:25)
[2022-08-08] MEDS: IPRATROPIUM BROMIDE NEB SOLN 0.02% 2.5 ML VIAL INH SCH ×3 (01:25→13:25)
[2022-08-08 01:57] LABS: Partial Thromboplastin Ratio 2.3
[2022-08-08 02:27] LABS: Partial Thromboplastin Time 65.1 Seconds (21.0-31.0)
[2022-08-08] MEDS: CLINDAMYCIN/D5W 600 MG/50 ML BAG IV SCH ×2 (03:12→11:10)
[2022-08-08] MEDS: HEPARIN SODIUM/DEXTROSE 25,000 UNITS/500 ML BAG IV SCH (03:45)
[2022-08-08 07:11] LABS: Hematocrit (blood only) 32.8 % (37.0-47.0); Hemoglobin 11.3 g/dl (12.0-16.0); Mean Corpuscular Hemoglobin 31.8 pg (25.0-34.0); Mean Corpuscular Hgb Conc 34.5 g/dL (32.0-36.0); Mean Corpuscular Volume 92.4 fL (80.0-100.0); Mean Platelet Volume 10.5 fL (9.4-12.4); Platelet Count 191 K/uL (130-400); RDW Coefficient of Variation 15.8 % (11.5-14.5); RDW Standard Deviation 53.2 fL (36.4-46.3); Red Blood Count 3.55 M/uL (4.20-5.40); White Blood Count 7.58 K/ul (4.8-10.8)
[2022-08-08 07:14] LABS: Calcium 7.9 mg/dl (8.6-10.3); Creatinine Clr Calc Pharmacy 80.5 ml/min; Magnesium 1.9 mg/dl (1.7-2.4); Potassium 3.9 mmol/L (3.5-5.1)
[2022-08-08] MEDS: METOPROLOL SUCC 25MG EXT REL TAB PO SCH (07:48)
[2022-08-08] MEDS: CEROVITE ADV FORMULA TAB PO SCH (07:48)
--- NOTE | 2022-08-08 08:51 | Cardiology Progress Note ---
Date of Service August 08, 2022 Assessment & Plan (1) Acute hypoxemic respiratory failure: (2) Aspiration into airway: (3) Atrial fibrillation with RVR: Plan Patient admitted for acute respiratory failure with hypoxia after a choking event requiring successful Heimlich maneuver complicated by aspiration. Incidentally found to have afib RVR on admission EKG. Likely afib started during acute hypoxic event, but onset is uncertain. No prior history of atrial fibrillation. Patient converted to NSR with IV amiodarone after admission. IV amiodarone discontinued due to prolonged QT. Transitioned to oral metoprolol succinate 12.5 mg daily Improved QT on repeat EKG. Currently NSR, HR's currently 80-100. will increase metoprolol succinate to 25 mg daily. Echo with normal LV systolic function and no significant valvular heart disease. Continue IV heparin for now for stroke prophylaxis. Given uncertainty about duration and onset of afib, anticoagulation recommended, at least short course for 30 days. After swallowing study, as long as no other interventions needed, will transition from IV heparin to Eliquis 5 mg BID. Will arrange outpatient ZIO monitor and cardiology follow up after discharge Continue antibiotics and supportive care per hospitalist for aspiration pneumonia. Clinically improving. DVT proph - IV heparin currently Case discussed with Dr. Keyes I spent a total of 30 minutes on the date of service in preparation, delivery, and documentation of the care provided to this patient, excluding any time spent in the performance of separately billed services. Alina Mg PA-C Department of Cardiology, [facility] This chart was completed in part utilizing Speech Voice Recognition Software. Grammatical errors, random word insertions, prounoun errors, and incomplete sentences are an occasional consequence of this system due to software limitations, ambient noise, and hardware issues. Any formal questions or concerns about the content, text, or information contained within the body of this dictation should be directly addressed to the provider for clarification. Admission and Anticipated Discharge Date Admission Date: August 07, 2022 Supervising Physician Co-Signing Physician Notes Supervising Physician Attestation: I have personally performed a history and physical examination on the patient. I agree with the physician assistant production editor's findings and plan as documented with the following additions. Subjective: Patient feeling improved.Telemetry reveals no additional atrial fibrillation Exam: Cardiovascular: Regular rhythm, no murmurs, no edema Data: Report of videofluoroscopic swallowing study: No tracheal aspiration intact swallowing mechanism Assessment and Plan: -Episode of atrial fibrillation in the setting of an acute hypoxic event from choking -Difficult to determine if this is lone atrial fibrillation or if she has a history of paroxysmal atrial fibrillation -- Stable for discharge on metoprolol and a course of Eliquis. Duration of anticoagulation to be determined at outpatient follow-up. I spent a total of 20 minutes on the date of service in preparation, delivery, and documentation of the care provided to this patient, excluding any time spent in the performance of separately billed services. Case discussed with the patient's nurse, Dr. Chandler , and the patient's outpatient pharmacy for the purpose of coordination of care. Luis Alberto Keyes, DO Subjective Patient sitting up in bed, eating breakfast with assistance of her . Denies chest pain. Reports SOB improving. No dizziness or palpitations. Review of Systems Review of Systems: All systems reviewed & are unremarkable except as noted in HPI & below Physical Exam Constitutional: no acute distress Neck: trachea midline, no thyromegaly Respiratory: no respiratory distress Auscultation: + diminished lung sounds Cardiovascular: Rate/Rhythm: regular rate and regular rhythm Vessels: no JVD Extremities: no edema (legs atrophied) Gastrointestinal (Abdomen): normal bowel sounds, soft, nontender, no hepatosplenomegaly Skin: no rashes, warm and dry Results & Data Vital Signs (Past 12 Hours) Vital Signs Temp Pulse Pulse Resp BP Pulse Ox O2 Del Method 08/08/22 07:54 36.6 C 98 H 18 108/64 94 Room Air 08/08/22 06:58 89 18 93 Room Air 08/08/22 03:13 36.6 C 93 H 18 123/71 94 Room Air 08/08/22 01:27 91 H 18 92 Room Air 08/07/22 23:20 91 H 08/07/22 23:19 36.8 C 94 H 18 100/62 95 Room Air Laboratory Results Coagulation 08/07/22 08/08/22 Range/Units 15:18 00:46 APTT 129.5 H* 65.1 H* (21.0-31.0) Seconds CBC 08/08/22 Range/Units 06:21 WBC 7.58 (4.8-10.8) K/ul RBC 3.55 L (4.20-5.40) M/uL Hgb 11.3 L (12.0-16.0) g/dl Hct 32.8 L (37.0-47.0) % Plt Count 191 (130-400) K/uL Comprehensive Metabolic Panel 08/08/22 Range/Units 06:21 Sodium 140 (136-145) mmol/L Potassium 3.9 (3.5-5.1) mmol/L Chloride 108 H (98-107) mmol/L Carbon Dioxide 25 (21-32) mmol/L BUN 11 (6-23) mg/dl Creatinine 0.58 L (0.6-1.2) mg/dl Glucose 96 (70-99(Fasting)) mg/dl Calcium 7.9 L (8.6-10.3) mg/dl Intake and Output 08/07/22 08/08/22 08/08/22 22:59 06:59 14:59 Intake Total 309.2 / 1744.002 216.133 / 1744.002 Output Total 250 / 750 250 / 750 Balance 59.2 / 994.002 -33.867 / 994.002 Intake: IV 189.2 / 1504.002 216.133 / 1504.002 Clindamycin/D5w 600 mg In 50 ml 50 / 150 50 / 150 @ 100 mls/hr IV Q8H COUNTS INCLUDE 234 BEDS AT THE [facility] Rx#: [id number] Heparin Sodium/Dextrose 25,000 139.2 / 459.550 166.133 / 459.550 units In 500 ml @ 700 UNITS/HR 14 mls/hr IV .Q24H ROX Rx#: [id number] Oral 120 / 240 Output: Urine Amount (Catheter) 250 / 750 250 / 750 Kahn/Indwelling 250 / 750 250 / 750 Other: Other Intake Source NPO Weight 55.4 kg 55.7 kg Weight Measurement Method Built in [facility] Diagnostic Findings Telemetry reviewed: NSR with HR's in the 80-100 bpm range. No recurrent afib. Echo report reviewed dated 08/07/22: Sinus rhythm was present during echo. LV wall motion is normal. Ejection fraction 55 to 60%. Grade 1 diastolic dysfunction. Aortic valve is not well-visualized. No aortic stenosis or aortic regurgitation on Doppler. Medications Administered Current Inpatient Medications Acetaminophen (Acetaminophen 325 Mg Tab) 650 mg PO Q4H PRN PRN Reason: Pain or Fever Stop: 09/06/22 02:30 Heparin Sodium/Dextrose (Heparin Sodium/Dextrose) 25,000 units in 500 mls @ 14 mls/hr IV .Q24H COUNTS INCLUDE 234 BEDS AT THE [facility]; Protocol Stop: 09/06/22 00:14 Last Titration: 08/08/22 06:57 Dose: 700 units/hr, 14 mls/hr Clindamycin Phosphate (Cleocin/D5w) 600 mg in 50 mls @ 100 mls/hr IV Q8H COUNTS INCLUDE 234 BEDS AT THE [facility] Stop: 08/14/22 03:59 Last Infusion: 08/08/22 03:42 Dose: Infused Promethazine HCl 6.25 mg/ (Sodium Chloride) 50.25 mls @ 201 mls/hr IV Q6H PRN PRN Reason: Nausea And Vomiting Stop: 09/06/22 02:30 Ipratropium Medina (Ipratropium [place] Neb Soln 0.02% 2.5 Ml Vial) 0.5 mg INH Q6R COUNTS INCLUDE 234 BEDS AT THE [facility] Stop: 09/06/22 06:59 Last Admin: 08/08/22 06:58 Dose: 0.5 mg Levalbuterol HCl (Levalbuterol 1.25mg/0.5ml Neb) 1.25 mg INH Q6R COUNTS INCLUDE 234 BEDS AT THE [facility] Stop: 09/06/22 06:59 Last Admin: 08/08/22 06:58 Dose: 1.25 mg Metoprolol Succinate (Metoprolol Succ 25mg Ext Rel Tab) 25 mg PO QAM COUNTS INCLUDE 234 BEDS AT THE [facility] Stop: 09/08/22 08:59 Multivitamins/Minerals (Cerovite Adv Formula Tab) 1 tab PO QAM COUNTS INCLUDE 234 BEDS AT THE [facility] Stop: 09/06/22 08:59 Last Admin: 08/08/22 07:48 Dose: 1 tab (2) Aspiration into airway Encounter type: initial encounter Qualified Code(s): T17.908A - Unspecified foreign body in respiratory tract, part unspecified causing other injury, initial encounter
[2022-08-08] MEDS ORDERED: METOPROLOL SUCC 25MG EXT REL TAB PO ONE (10:26)
--- NOTE | 2022-08-08 14:27 | Hospitalist Progress Note ---
Date of Service August 08, 2022 Assessment & Plan (1) Acute hypoxemic respiratory failure: Plan: Acute respiratory failure with hypoxia Secondary to aspiration pneumonia Severe sepsis Lactic acidosis --Chest CTA:No acute pulmonary embolism. No obstruction of the esophagus. Airspace consolidation in the LEFT upper lobe, with debris in the LEFT upper lobe bronchi, consistent with aspiration pneumonia. --Neck CT:No obstruction of the proximal esophagus. Refer to concomitant chest CT scan report. Airspace consolidation LEFT upper lobe. Refer to concomitant chest CT scan report. -- Continue IV Clindamycin Speech therapy evaluated Aspiration precautions Weaned off of supplemental oxygen Saturating well on room air Plan to discharge home on p.o. antibiotics to complete the course Dysphagia Video swallow:Read pending Continue aspiration precautions Appreciate speech therapy input Atrial fibrillation with RVR Likely secondary to above Converted to sinus with IV amiodarone overnight -ECHO: Left ventricle wall motion is normal. EF 55 to 60%. Grade 1 diastolic dysfunction. Aortic valve is not well-visualized. No aortic stenosis or aortic regurgitation on Doppler assessment -Continue metoprolol 25mg daily On IV heparin for anticoagulation>>Transition to Eliquis upon discharge Appreciate cardiology input Needs outpatient ZIO monitor arranged HTN BP low Amlodipine discontinued Continue Metoprolol as above Monitor Colon cancer S/P surgery H/O Multiple sclerosis Ambulatory dysfunction--wheelchair-bound at baseline DVT Px: on IV heparin>>Eliquis Code Status Full code Admission and Anticipated Discharge Date Admission Date: August 07, 2022 Subjective Patient is seen and examined at bedside Feels better today Offers no complaints Discussed with patient's family at bedside and also discussed with cardiology Had video swallow earlier today Denies any significant cough Denies any chest pain, dyspnea, dizziness, nausea, abdominal pain Review of Systems Review of Systems: All systems reviewed & are unremarkable except as noted in Subjective Physical Exam Physical Exam: Physical Exam: Vitals signs as noted above General Appearance:Moderately built and nourished, no apparent distress Head: normocephalic, Atraumatic Eyes: normal inspection, EOMI Neck: supple, Trachea midline Respiratory/Chest: Decreased breath sounds, CTA, No accessory muscle use Cardiovascular: S1, S2, No murmur Abdomen/GI:Soft, Non tender, Bowel sounds present Extremities/Musculoskeletal:normal inspection, no edema Neurologic/Psych:AAOX2, left upper extremity 3/5, paraplegia of bilateral lower extremity, right upper extremity--Baseline per family Skin: normal color, warm Results & Data Results & Data Vital Signs (Past 12 Hours) Vital Signs Temp Pulse Pulse Resp BP Pulse Ox O2 Del Method 08/08/22 13:25 77 18 92 Room Air 08/08/22 11:31 36.4 C L 85 18 136/81 93 Room Air 08/08/22 08:00 83 08/08/22 07:54 36.6 C 98 H 18 108/64 94 Room Air 08/08/22 06:58 89 18 93 Room Air 08/08/22 03:13 36.6 C 93 H 18 123/71 94 Room Air Laboratory Results Short CBC 08/08/22 Range/Units 06:21 WBC 7.58 (4.8-10.8) K/ul Hgb 11.3 L (12.0-16.0) g/dl Hct 32.8 L (37.0-47.0) % Plt Count 191 (130-400) K/uL BMP 08/08/22 06:21 Sodium 140 Potassium 3.9 Chloride 108 H Carbon Dioxide 25 BUN 11 Creatinine 0.58 L Glucose 96 Calcium 7.9 L
--- NOTE | 2022-08-08 15:18 | Discharge Summary ---
Date of Service August 08, 2022 Admission HPI Per Admitting Provider History obtained from patient, family, and records. Medical history significant for HTN, colon cancer status post surgery, history multiple sclerosis, past tobacco abuse. Patient had a choking episode while eating some bread at a local restaurant. Patient noted to be cyanotic, O2 sats 80s on room air. Patient not sure if she passed out. Heimlich maneuver done at restaurant although patient has no recollection of intervention. Patient with cough and shortness of breath. Denies chest pain or headache or abdominal pain. No prior episodes of aspiration as per patient. Clindamycin and neb treatment administered at the ER. Lowest O2 sats of 60 to 70s documented at the ER. BiPAP initiated. 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 Admission Exam Per Admitting Provider GENERAL: Comfortable, pleasant, no respiratory distress SKIN: Normal color, warm HEENT: [place] palpebral conjunctivae, no ptosis, dry buccal mucosa, BiPAP in place NECK : Supple, no tenderness CHEST : Decreased breath sounds, no tenderness HEART : Irregular, no obvious murmurs ABDOMEN: Some distention, nontender EXTREMITIES : No LE swelling/tenderness, no other conspicuous deformities noted NEUROLOGIC : Coherent, no facial asymmetry, MMTS BLE, RUE 0/5, LUE 3/5, gait and stance not assessed Principal Diagnosis Acute respiratory failure with hypoxia Aspiration pneumonia Atrial fibrillation withrapid ventricular response Discharge Data Allergies Allergy/AdvReac Type Severity Reaction Status Date / Time CHEPE Inhibitors Allergy Intermediate SHORTNESS Verified 08/06/22 20:56 OF BREATH Penicillins Allergy Intermediate swelling Verified 08/06/22 20:56 Sermiwn-JGO-WtJ Reductase Allergy Intermediate SHORTNESS Verified 08/06/22 20:56 Inhibitor OF BREATH [Fipggjc-Mlp-Qoi Reductase Inhibitor] Consultations 08/06/22 21:11 ED Decision to Admit Stat 08/07/22 02:31 Consult Cardiology Routine Procedures Performed Laboratory Results WBC 7.58 K/ul (4.8-10.8) 08/08/22 06:21 RBC 3.55 M/uL (4.20-5.40) L 08/08/22 06:21 Hgb 11.3 g/dl (12.0-16.0) L 08/08/22 06:21 POC Hgb 15.3 g/dl (12.0-16.0) 08/06/22 20:14 Hct 32.8 % (37.0-47.0) L 08/08/22 06:21 POC Hct 45 % (37-47) 08/06/22 20:14 MCV 92.4 fL (80.0-100.0) 08/08/22 06:21 MCH 31.8 pg (25.0-34.0) 08/08/22 06:21 MCHC 34.5 g/dL (32.0-36.0) 08/08/22 06:21 RDW Std Deviation 53.2 fL (36.4-46.3) H 08/08/22 06:21 RDW Coeff of Nadira 15.8 % (11.5-14.5) H 08/08/22 06:21 Plt Count 191 K/uL (130-400) 08/08/22 06:21 MPV 10.5 fL (9.4-12.4) 08/08/22 06:21 Immature Gran % (Auto) 0.5 % 08/07/22 07:03 Neut % (Auto) 93.0 % 08/07/22 07:03 Lymph % (Auto) 4.8 % 08/07/22 07:03 [place] % (Auto) 1.6 % 08/07/22 07:03 Eos % (Auto) 0.0 % 08/07/22 07:03 Baso % (Auto) 0.1 % 08/07/22 07:03 Neut # (Auto) 12.47 K/uL (1.40-6.50) H 08/07/22 07:03 Lymph # (Auto) 0.65 K/uL (1.2-3.4) L 08/07/22 07:03 [place] # (Auto) 0.22 K/uL (0.11-0.59) 08/07/22 07:03 Eos # (Auto) 0.00 K/uL (0-0.50) 08/07/22 07:03 Baso # (Auto) 0.02 K/uL (0-0.2) 08/07/22 07:03 Immature Gran # (Auto) 0.07 K/uL (0.01-0.20) 08/07/22 07:03 PT 10.1 Seconds (9.0-12.0) 08/06/22 20:14 INR 0.9 (0.9-1.1) 08/06/22 20:14 APTT 65.1 Seconds (21.0-31.0) H* 08/08/22 00:46 PTT Ratio 2.3 08/08/22 00:46 POC pH 7.32 (7.35-7.45) L 08/06/22 20:21 POC pCO2 36 mmHg (35-46) 08/06/22 20:21 POC pO2 34 mmHg (80-95) L 08/06/22 20: POC HCO3 18 neva/L (19-24) L 08/06/22 20: POC Total CO2 19 mmol/L (24-31) L 08/06/22 20: POC Base Excess -8.0 neva/L (-9-1.8) 08/06/22 20: ABG pH 7.33 (7.35-7.45) L 08/06/22 21:30 ABG pCO2 40 mmHg (35-46) 08/06/22 21:30 ABG pO2 73 mmHg (80-95) L 08/06/22 21:30 ABG HCO3 21 mmol/L (19-24) 08/06/22 21:30 POC ABG O2 Sat 61.0 % (90-95) L 08/06/22 20: ABG O2 Saturation 95.8 % (90-95) H 08/06/22 21:30 ABG Base Excess -4.5 mEq/L (-9-1.8) 08/06/22 21:30 Jakub Test Pos (Pos) 08/06/22 21:30 Methemoglobin < 0.7 % (0.0-1.5) 08/06/22 21:30 Oxygen Given 90% BIPAP 08/06/22 21:30 POC Sodium 137 mmol/L (135-144) 08/06/22 20:14 Sodium 140 mmol/L (136-145) 08/08/22 06:21 POC Potassium 7.1 mmol/L (3.3-5.0) H* 08/06/22 20:14 Potassium 3.9 mmol/L (3.5-5.1) 08/08/22 06:21 POC Chloride 111 mmol/L (101-112) 08/06/22 20:14 Chloride 108 mmol/L (98-107) H 08/08/22 06:21 Carbon Dioxide 25 mmol/L (21-32) 08/08/22 06:21 POC Total CO2 19 mmol/L (24-31) L 08/06/22 20:14 Anion Gap 7 (3-11) 08/08/22 06:21 POC Anion Gap 16.0 mmol/L (16-25) 08/06/22 20:14 POC BUN 24 mg/dl (7-18) H 08/06/22 20:14 BUN 11 mg/dl (6-23) 08/08/22 06:21 Creatinine 0.58 mg/dl (0.6-1.2) L 08/08/22 06:21 POC Creatinine 0.5 mg/dl (0.6-1.3) L 08/06/22 20:14 Est Cr Clr Drug Dosing 80.5 ml/min 08/08/22 06:21 Est GFR ( Amer) 109.0 ml/min 08/08/22 06:21 Est GFR (Non-Af Amer) 94.0 ml/min 08/08/22 06:21 BUN/Creatinine Ratio 19.0 (10-20) 08/08/22 06:21 Glucose 96 mg/dl (70-99(Fasting)) 08/08/22 06:21 POC Glucose (other) 180 mg/dl (70-99) H 08/06/22 20:14 Estimat Average Glucose 103 mg/dl 08/07/22 01:17 Hemoglobin A1c 5.2 % (4.5-5.6) 08/07/22 01:17 Lactate 1.6 mmol/L (0.4-2.0) 08/07/22 01:17 Calcium 7.9 mg/dl (8.6-10.3) L 08/08/22 06:21 POC Ioniz Calcium Feng 0.98 mmol/l (1.12-1.32) L 08/06/22 20:14 Magnesium 1.9 mg/dl (1.7-2.4) 08/08/22 06:21 Total Bilirubin 0.4 mg/dl (0.2-1.0) 08/06/22 20:14 AST 34 U/L (13-39) 08/06/22 20:14 ALT 44 U/L (7-52) 08/06/22 20:14 Alkaline Phosphatase 89 U/L (34-104) 08/06/22 20:14 Total Protein 6.9 gm/dl (6.0-8.3) 08/06/22 20:14 Albumin 3.9 gm/dl (3.4-5.0) 08/06/22 20:14 Globulin 3.0 gm/dl (2.5-4.0) 08/06/22 20:14 Albumin/Globulin Ratio 1.3 (0.9-2) 08/06/22 20:14 Urine Color Yellow 08/06/22 21:23 Urine Appearance Clear (Clear) 08/06/22 21:23 Urine pH 6.0 (4.5-7.5) 08/06/22 21:23 Ur Specific [place] 1.034 (1.000-1.030) H 08/06/22 21:23 Urine Protein Negative (Negative) 08/06/22 21:23 Urine Glucose (UA) Negative (Negative) 08/06/22 21:23 Urine Ketones Trace (Negative) H 08/06/22 21:23 Urine Blood Negative (Negative) 08/06/22 21:23 Urine Nitrite Negative (Negative) 08/06/22 21:23 Urine Bilirubin Negative (Negative) 08/06/22 21:23 Urine Urobilinogen Negative (Negative) 08/06/22 21:23 Ur Leukocyte Esterase Trace (Negative) H 08/06/22 21:23 Urine WBC (Auto) 1-5 /hpf (0-5) 08/06/22 21:23 Urine RBC (Auto) 0-4 /hpf (0-4) 08/06/22 21:23 U Hyaline Cast (Auto) 1-5 /lpf (0-5) 08/06/22 21:23 U Epithel Cells (Auto) >30 /lpf (0-5) H 08/06/22 21:23 Urine Bacteria (Auto) Negative (Negative) 08/06/22 21:23 Adenovirus (PCR) Not Detected (NotDetected) 08/06/22 20:14 B. pertussis DNA (PCR) Not Detected (NotDetected) 08/06/22 20:14 B.parapertussis DNA PCR Not Detected (NotDetected) 08/06/22 20:14 C. pneumoniae DNA (PCR) Not Detected (NotDetected) 08/06/22 20:14 Coronavirus OC43 (PCR) Not Detected (NotDetected) 08/06/22 20:14 Coronavirus HKU1 (PCR) Not Detected (NotDetected) 08/06/22 20:14 Coronavirus 229E (PCR) Not Detected (NotDetected) 08/06/22 20:14 SARS-CoV-2 (PCR) Not Detected (NotDetected) 08/06/22 20:14 Coronavirus NL63 (PCR) Not Detected (NotDetected) 08/06/22 20:14 Human Metapneumovir PCR Not Detected (NotDetected) 08/06/22 20:14 Influenza Type A (PCR) Not Detected (NotDetected) 08/06/22 20:14 Influenza Type B (PCR) Not Detected (NotDetected) 08/06/22 20:14 M. pneumoniae (PCR) Not Detected (NotDetected) 08/06/22 20:14 Parainfluenza 1 (PCR) Not Detected (NotDetected) 08/06/22 20:14 Parainfluenza 2 (PCR) Not Detected (NotDetected) 08/06/22 20:14 Parainfluenza 3 (PCR) Not Detected (NotDetected) 08/06/22 20:14 Parainfluenza 4 (PCR) Not Detected (NotDetected) 08/06/22 20:14 RSV (PCR) Not Detected (NotDetected) 08/06/22 20:14 Entero/Rhino (PCR) Not Detected (NotDetected) 08/06/22 20:14 Impressions Chest CTA 08/06/22 20:06 Exam(s): CTA CHEST IV Amt: 117ml optiray 320 EXAM: CT Angiography Chest With Intravenous Contrast CLINICAL HISTORY: Reason for exam: profound hypoxia after chocking episode. TECHNIQUE: Axial computed tomographic angiography images of the chest with intravenous contrast. CTDI is 12.86 mGy and DLP is 315.22 mGy-cm. Automated exposure control was utilized for the study. A dose lowering technique was utilized adhering to the principles of ALARA. MIP reconstructed images were created and reviewed. COMPARISON: No relevant prior studies available. FINDINGS: Pulmonary arteries: Unremarkable. No acute pulmonary embolism. Aorta: No acute findings. No thoracic aortic aneurysm. Lungs: Airspace consolidation in the LEFT upper lobe, with debris in the LEFT upper lobe bronchi, consistent with aspiration pneumonia. Pleural space: Unremarkable. No significant effusion. No pneumothorax. Heart: Unremarkable. No cardiomegaly. No significant pericardial effusion. No evidence of RV dysfunction. Mediastinum: Unremarkable. No obstruction of the esophagus. Bones/joints: No acute fracture. No dislocation. Soft tissues: Unremarkable. Lymph nodes: Unremarkable. No enlarged lymph nodes. IMPRESSION: 1. No acute pulmonary embolism. 2. No obstruction of the esophagus. 3. Airspace consolidation in the LEFT upper lobe, with debris in the LEFT upper lobe bronchi, consistent with aspiration pneumonia. Electronically signed by: Suleman Gardiner MD 08/06/22 22:11 PM Chest X-Ray 08/06/22 20:06 SINGLE VIEW CHEST CLINICAL HISTORY: Dyspnea FINDINGS: 2 AP, portable, upright chest radiographs are compared to study dated 01/24/2016. The examination is degraded by portable technique and patient rotation. The cardiomediastinal silhouette is unremarkable. Chronic interstitial thickening is similar to previous. There is dense airspace consolidation at the left lung base. The right lung appears clear. No large pleural effusion or pneumothorax is seen. The skeletal structures are osteopenic. The bony thorax is grossly intact. IMPRESSION: Dense airspace consolidation at the left lung base is typical for pneumonia/aspiration pneumonitis. Clinical correlation will be required and radiographic follow-up to resolution is recommended. ACT 112: Negative or not required by law. Electronically signed by: Mo Friedman M.D. 08/07/2022 8:24 AM Soft Tissue Neck CT 08/06/22 20:06 Exam(s): CT NECK With Contrast IV Amt: 117ml optiray 320 EXAM: CT Neck With Intravenous Contrast CLINICAL HISTORY: Reason for exam: hypoxia s/p chocking episode. TECHNIQUE: Axial computed tomography images of the neck with intravenous contrast. CTDI is 7.7 mGy and DLP is 254.95 mGy-cm. Automated exposure control was utilized for the study. A dose lowering technique was utilized adhering to the principles of ALARA. CONTRAST: Patient received 117ml optiray 320 of IV contrast COMPARISON: No relevant prior studies available. FINDINGS: Oropharynx: Unremarkable. No significant tonsillar enlargement. No peritonsillar abscess. Hypopharynx: Unremarkable. Larynx: Unremarkable. Normal epiglottis. Trachea: Unremarkable. Retropharyngeal space: Unremarkable. Submandibular/parotid glands: The submandibular and parotid glands are within normal limits. Thyroid: LEFT thyroid nodule measures 7 mm. Bones/joints: Cervical spondylosis and degenerative disc disease. No acute fracture. Soft tissues: Unremarkable. Vasculature: Atherosclerotic changes. Lymph nodes: Unremarkable. No lymphadenopathy. Esophagus: Unremarkable as visualized. No obstruction of the proximal esophagus. Refer to concomitant chest CT scan report. Lung apices: Airspace consolidation LEFT upper lobe. Refer to concomitant chest CT scan report. IMPRESSION: 1. No obstruction of the proximal esophagus. Refer to concomitant chest CT scan report. 2. Airspace consolidation LEFT upper lobe. Refer to concomitant chest CT scan report. Electronically signed by: Suleman Gardiner MD 08/06/22 22:02 PM Videofluoroscopic Swallow 08/08/22 10:30 MODIFIED BARIUM SWALLOW CLINICAL HISTORY: r/o aspiration COMPARISON STUDY: CT of the neck August 06, 2022. FLUOROSCOPY TIME: 1.3 minutes. Ka, r: 16.39 mGy. TECHNIQUE: A modified barium swallow was performed in conjunction with Speech Pathology. The patient ingested varying consistencies of barium containing material. Video fluoroscopy was performed. FINDINGS: No aspiration was identified with thin liquids, mildly thick liquids, pudding or crackers with paste. Epiglottic inversion was normal. Laryngeal elevation was normal. IMPRESSION: 1. No tracheal aspiration identified. Intact swallowing mechanism. 2. Full recommendations by Speech pathology to follow. ACT 112: Negative or not required by law. Electronically signed by: Asif Matos M.D. 08/08/2022 3:15 PM Ordered Studies 08/06/22 20:06 CT angio chest PE protocol Stat CT soft tissue neck w con Stat 08/08/22 10:30 FL video swallow Routine Hospital Course (1) Acute hypoxemic respiratory failure: Acute respiratory failure with hypoxia Secondary to aspiration pneumonia Severe sepsis Lactic acidosis --Chest CTA:No acute pulmonary embolism. No obstruction of the esophagus. Airspace consolidation in the LEFT upper lobe, with debris in the LEFT upper lobe bronchi, consistent with aspiration pneumonia. --Neck CT:No obstruction of the proximal esophagus. Refer to concomitant chest CT scan report. Airspace consolidation LEFT upper lobe. Refer to concomitant chest CT scan report. -- Continue IV Clindamycin Speech therapy evaluated Aspiration precautions Weaned off of supplemental oxygen Saturating well on room air Plan to discharge home on p.o. antibiotics to complete the course Dysphagia Video swallow:No tracheal aspiration identified. Intact swallowing mechanism. Continue aspiration precautions Appreciate speech therapy input Atrial fibrillation with RVR Likely secondary to above Converted to sinus with IV amiodarone overnight -ECHO: Left ventricle wall motion is normal. EF 55 to 60%. Grade 1 diastolic dysfunction. Aortic valve is not well-visualized. No aortic stenosis or aortic regurgitation on Doppler assessment -Continue metoprolol 25mg daily On IV heparin for anticoagulation>>Transition to Eliquis upon discharge Appreciate cardiology input Needs outpatient ZIO monitor arranged HTN BP low Amlodipine discontinued Continue Metoprolol as above Monitor Colon cancer S/P surgery H/O Multiple sclerosis Ambulatory dysfunction--wheelchair-bound at baseline DVT Px: on IV heparin>>Eliquis Code Status Full code Total Time Total Time Spent Total Time Spent (In Minutes): 54 minutes Discharge Plan Discharge Items Patient Disposition: Home - Self-Care Reason For Visit: RAPID AF, RESP FAILURE Discharge Diagnosis: Acute respiratory failure with hypoxia Aspiration pneumonia Atrial fibrillation withrapid ventricular response Activity: Per Instructions section Exercise/Sports: Wait until after follow-up appointment Non-emergency contact: Primary Care Provider and Housing Assistant Property Manager Call non-emergency contact if: you have any medication questions, your symptoms worsen, your pain is concerning for you and you have a fever Follow-up/Referrals: Judd Wise DO [Primary Care Provider] - (Date & Time 08/14/2022 11:00 AM Provider Taras Costello MD Department Family Practice [facility] ) Diet: Heart Healthy Addtl Attending Provider Instructions: Follow-up with your primary care physician Dr. Judd Wise on 08/14/2022 11:00 AM Follow-up with your floor waxer Alina Mg PA-C/ as recommended -- Continue aspiration precautions as recommended by speech therapy -- Complete antibiotic course clindamycin as prescribed. --Get outpatient ZIO monitor arranged as recommended by your floor waxer. --Your blood pressure medication amlodipine is discontinued and you were started on metoprolol for better control of your heart rate. Monitor your blood pressure regularly at home. Adjustment of medications as per your primary care physician/floor waxer. Seek immediate medical attention if your symptoms reoccur or worsen Please take all medications as instructed on discharge list below. Please call if you have any questions or problems. You can reach a [facility] hospitalist on duty at [facility] 24 hours a day by calling [phone] Pending Studies at Discharge: Yes Studies:: Final Blood Cultures Stand-Alone Forms: My [facility], Smoking Cessation Medications and DC Order Prescriptions: New metoprolol succinate 25 mg Tablet Extended Release 24 Hr 25 mg PO QAM Qty: 30 1RF Eliquis 5 mg Tablet 5 mg PO Q12H Qty: 60 0RF clindamycin HCl 300 mg capsule 300 mg PO TID 5 Days Qty: 15 0RF Continued diphenhydramine HCl 25 mg Tablet 25 mg PO HS cholecalciferol (vitamin D3) [Vitamin D3] 25 mcg (1,000 unit) Tablet 1,000 unit PO QAM Centrum Silver Women 8 mg iron-400 mcg-300 mcg Tablet 1 tab PO QAM Discontinued amlodipine 5 mg Tablet 5 mg PO HS Discharge Orders: Discharge Order (Routine); Ordered 08/08/22 Ordered By: Lalo Chandler Admission Data Admit Date/Time: 08/07/22 01:25 Attending Provider: Lalo Chandler Admit Provider: Tyrone Robledo Primary Care Provider: Judd Wise Other Providers: Tyrone Robledo ; Antonia Estrada ; Luis Alberto Keyes ; Arcadio Ho ; Harris Mejia ; RupaliAdal mccann ; Jorge Mathew ; Alina Mg ; Alexandria Bosch ; Antonia Lim ; Kevin Cochran ; Yuliet Mooney
[2022-08-08] MEDS ORDERED: APIXABAN 5 MG TABLET PO SCH ×2 (17:00)
[2022-08-09] MEDS ORDERED: METOPROLOL SUCC 25MG EXT REL TAB PO SCH (09:00)
== END 2022-08-08 17:34 | disposition home or self-care (01) | DRG 871 ==
LOC: ED 20:01 → 2S 08-07 01:25

== ENCOUNTER 2025-01-28 15:33 | Inpatient (IN) ==
[2025-01-28 16:46] LABS: Hematocrit (blood only) 30.3 % (37.0-47.0); Hemoglobin 9.9 g/dl (12.0-16.0); Mean Corpuscular Hemoglobin 29.6 pg (25.0-34.0); Mean Corpuscular Volume 90.7 fL (80.0-100.0); Platelet Count 221 K/uL (130-400); RDW Standard Deviation 53.1 fL (36.4-46.3); Red Blood Count 3.34 M/uL (4.20-5.40); White Blood Count 6.96 K/ul (4.8-10.8)
[2025-01-28 17:04] LABS: Immature Granulocytes # (auto) 0.07 K/uL (0.01-0.20); Immature Granulocytes % (auto) 1.0 %
[2025-01-28 17:13] LABS: Alanine Aminotransferase 34 U/L (7-52); Albumin Globulin Ratio 1.0 (0.9-2); Albumin Level 3.4 gm/dl (3.4-5.0); Alkaline Phosphatase 242 U/L (34-104); Anion Gap 6 (3-11); Bilirubin,Total 0.3 mg/dl (0.2-1.0); Blood Urea Nitrogen 35 mg/dl (6-23); Calcium 13.3 mg/dl (8.6-10.3); Carbon Dioxide 30 mmol/L (21-32); Chloride 105 mmol/L (98-107); Globulin 3.5 gm/dl (2.5-4.0); Glucose 104 mg/dl (70-99(Fasting)); Magnesium 2.4 mg/dl (1.7-2.4); Potassium 4.1 mmol/L (3.5-5.1); Sodium 141 mmol/L (136-145); Total Protein 6.9 gm/dl (6.0-8.3)
--- NOTE | 2025-01-28 17:40 | Emergency Department Note ---
Impression & Plan MOSHE (acute kidney injury), Anemia, Hypercalcemia, Urinary tract infection ED Provider Note NAME: MAURICE KING AGE: 69 SEX: F : 1955 ARRIVES VIA: Walk-In INFORMANT: Patient, ED PROVIDER(S): Qasim Sotelo DO CHIEF COMPLAINT: Anemia HPI: The patient is a 69-year-old female whose had a month of urinary tract infection. She has a history of MS. The patient is wheelchair-bound. The patient had outpatient labs done today and was diagnosed with anemia and told to come to the emergency department for possible admission. The patient denies having any chest pain or back pain. She denies having any abdominal pain. She denies having any fever or vomiting. ROS: See above HPI for pertinent positives & negatives. A total of 10 systems reviewed and were otherwise negative. PAST MEDICAL HISTORY: See Below PAST SURGICAL HISTORY: See Below FAMILY HISTORY: See Below SOCIAL HISTORY: See Below HOME MEDICATIONS: See Below ALLERGIES: See Below VITALS: See Below PHYSICAL EXAMINATION: GENERAL: Patient is awake alert in no acute distress patient is resting comfortably and showing no signs of anxiety EYES: The conjunctivae are clear. The pupils are round and reactive. EARS, NOSE, MOUTH AND THROAT: The nose is without any evidence of any deformity. NECK: The neck is nontender and supple. RESPIRATORY: Normal respiratory effort is noted there is no evidence of wheezing rhonchi or rales CARDIOVASCULAR: Regular rate and rhythm noted there no murmurs rubs or gallops normal S1 normal S2. GASTROINTESTINAL: The abdomen is soft and nondistended. There is no tenderness guarding or rigidity noted. MUSCULOSKELETAL/EXTREMITIES: There is no evidence of gross deformity full range of motion is noted in the hips and shoulders. SKIN: Pedal edema was noted bilaterally. Skin was warm and dry. NEUROLOGIC: Patient is awake alert and oriented x3 MEDICAL DECISION MAKING: The patient is a 69-year-old female who presented to the emergency department for an evaluation of generalized weakness. The patient was diagnosed with UTI earlier in the month. She has been on multiple antibiotics. She had repeat labs today and was found to be anemic as well as hypercalcemia. She was sent to the emergency department for further evaluation. The patient was treated with IV fluids in the emergency department. She was found to have an elevation in her creatinine compared to baseline. I discussed her condition with the on-call [facility] hospitalist. They have agreed to evaluate the patient in the emergency department for further management and disposition. Triage Nursing notes reviewed. Prior medical records reviewed Vital Signs: reviewed and remarkable for no significant abnormalities Differential diagnosis: Infection, dehydration, metabolic abnormality, hypo/hyperglycemia, electrolyte disturbance, anemia, hypoxia, cardiac sources, intracerebral event, toxicologic, neurologic, as well as other pathologies. ER treatment provided: See below Diagnostics interpreted by me: ECG: EKG was obtained in the emergency department. My interpretation is normal sinus rhythm at 65 bpm. There is no ectopy. There is no acute ST segment abnormalities noted. This was compared to a tracing from September 03, 2022. No changes were noted. Cardiac Monitoring: An order was placed for continuous cardiac monitoring. The monitor shows a rate of 66 bpm with sinus rhythm. Laboratory studies: As stated above and show below. Imaging studies: See below. Consultation(s): I discussed this case [facility] Past Med/Surg History Problem List (Updated 01/28/25 @ 19:02 by Qasim Sotelo DO) Urinary tract infection (Acute) Hypercalcemia (Acute) Anemia (Acute) MOSHE (acute kidney injury) (Acute) Colon cancer Hypokalemia (Acute) Acute dehydration (Acute) Aspiration into airway (Acute) Acute hypoxemic respiratory failure (Acute) History of colon cancer Encounter for pre-operative examination Encounter for pre-operative examination Transaminitis (Acute) Atrial fibrillation with RVR follows with Dr. Keyes--reason for eliquis/metoprolol Multiple sclerosis (Chronic) wheelchair bound Medical History On anticoagulant therapy eliquis bid History of colon cancer diagnosed 2011--sx Wheelchair bound does need MARVIN lift to be moved from wheelchair to bed Hypertension Surgical History History of colonoscopy History of bilateral tubal ligation History of appendectomy History of colon surgery (~2011) to remove colon cancer @ [facility] History of wisdom tooth extraction History of tooth extraction Family History Other No family history of adverse response to anesthesia Social History Smoking Status: Never smoker Second Hand Exposure: No; Do You Dip or Chew Tobacco: No; Hx Alcohol Use: Yes Alcohol type: wine Hx Substance Use: No Preferred Language: Hebrew Communication Ability: Effective Game Producer Required: No Beliefs That Will Affect Care: None Current Living Situation: Spouse Feels Safe at Home: Yes Assistive Devices: Glasses, Mechanical Lift and Wheelchair Allergies Allergies Allergy/AdvReac Type Severity Reaction Status Date / Time CHEPE Inhibitors Allergy Intermediate SHORTNESS Verified 05/01/23 10:13 OF BREATH Penicillins Allergy Intermediate swelling Verified 05/01/23 10:13 [id number]-KiF Reductase Allergy Intermediate SHORTNESS Verified 05/01/23 10:13 Inhibitor OF BREATH [Khjypul-Smm-Bcf Reductase Inhibitor] Home Meds Home Medications Medication Instructions Recorded Confirmed cholecalciferol (vitamin D3) 25 1,000 unit PO QAM 06/30/20 01/28/25 mcg (1,000 unit) tablet (Vitamin D3) diphenhydramine HCl 25 mg tablet 25 mg PO HS 06/30/20 01/28/25 [id number] 8 mg-folic 400 1 tab PO QAM 06/30/20 01/28/25 mcg-K 50 mcg-lutein 300 mcg tablet (Centrum Silver Women) abaloparatide (Tymlos) 80 mcg subcut DAILY 01/28/25 01/28/25 amlodipine 2.5 mg tablet 2.5 mg PO BID 01/28/25 01/28/25 solifenacin 10 mg tablet 10 mg PO DAILY 01/28/25 01/28/25 Previous Rx's Medication Instructions Recorded metoprolol succinate 25 mg 25 mg PO QAM #30 tabs 08/08/22 tablet,extended release 24 hr Results & Data (ED) Vital Signs Vital Signs - 24 hr 01/28/25 16:00 01/28/25 17:33 01/28/25 17:36 Pulse Rate 66 67 Pulse Rate [Apical] 67 Respiratory Rate 16 20 Respiratory Effort / Characteristics Non-Labored Spontaneous Non-Labored Spontaneous Respiratory Depth Normal Normal Respiratory Pattern Regular Blood Pressure 137/71 Blood Pressure [Right Arm] 145/78 H Blood Pressure Mean 93 Blood Pressure Mean [Right Arm] 100 Blood Pressure Position [Right Arm] Lying Pulse Oximetry 99 98 Oxygen Delivery Method Room Air Room Air Sepsis Recent Fever Within 48 Hours No Sepsis New/Unexplained Change in Mental Status No Sepsis Action Taken by Nursing No Action Required 01/28/25 17:39 01/28/25 18:00 01/28/25 18:00 Pulse Rate 66 66 Pulse Rate [Apical] Respiratory Rate 18 22 Respiratory Effort / Characteristics Respiratory Depth Respiratory Pattern Blood Pressure 132/106 H Blood Pressure [Right Arm] Blood Pressure Mean 112 Blood Pressure Mean [Right Arm] Blood Pressure Position [Right Arm] Pulse Oximetry Oxygen Delivery Method Sepsis Recent Fever Within 48 Hours Sepsis New/Unexplained Change in Mental Status Sepsis Action Taken by Intermediate Medications Current Medication List: was personally reviewed by me Laboratory Data Attestation: I reviewed the patient's lab results. 01/28/25 16:27 01/28/25 16:27 Lab Results 01/28/25 01/28/25 01/28/25 Range/Units 16:27 16:27 16:27 WBC 6.96 7.09 (4.8-10.8) K/ul RBC 3.34 L 3.33 L (4.20-5.40) M/uL Hgb 9.9 L (12.0-16.0) g/dl Hct (37.0-47.0) % MCV (80.0-100.0) fL MCH (25.0-34.0) pg MCHC (32.0-36.0) g/dL RDW Std Deviation (36.4-46.3) fL RDW Coeff of Nadira (11.5-14.5) % Plt Count (130-400) K/uL MPV (9.4-12.4) fL Immature Gran % (Auto) % Neut % (Auto) % Lymph % (Auto) % Rankin % (Auto) % Eos % (Auto) % Baso % (Auto) % Neut # (Auto) (1.40-6.50) K/uL Lymph # (Auto) (1.20-3.40) K/uL Rankin # (Auto) (0.11-0.59) K/uL Eos # (Auto) (0.00-0.50) K/uL Baso # (Auto) (0.00-0.20) K/uL Immature Gran # (Auto) (0.01-0.20) K/uL Sodium (136-145) mmol/L Potassium (3.5-5.1) mmol/L Chloride (98-107) mmol/L Carbon Dioxide (21-32) mmol/L Anion Gap (3-11) BUN (6-23) mg/dl Creatinine (0.6-1.2) mg/dl Est Cr Clr Drug Dosing eGFR BUN/Creatinine Ratio (10-20) Glucose (70-99(Fasting)) mg/dl Calcium (8.6-10.3) mg/dl Magnesium (1.7-2.4) mg/dl Total Bilirubin (0.2-1.0) mg/dl AST (13-39) U/L ALT (7-52) U/L Alkaline Phosphatase (34-104) U/L Total Protein (6.0-8.3) gm/dl Albumin (3.4-5.0) gm/dl Globulin (2.5-4.0) gm/dl Albumin/Globulin Ratio (0.9-2) Urine Color Urine Appearance (Clear) Urine pH (4.5-7.5) Ur Specific [place] (1.000-1.030) Urine Protein (Negative) Urine Glucose (UA) (Negative) Urine Ketones (Negative) Urine Blood (Negative) Urine Nitrite (Negative) Urine Bilirubin (Negative) Urine Urobilinogen (Negative) Ur Leukocyte Esterase (Negative) Urine WBC (Auto) (0-5) /hpf Urine RBC (Auto) (0-2) /hpf U Hyaline Cast (Auto) (0-2) /lpf U Epithel Cells (Auto) (0-2) /hpf Urine Bacteria (Auto) (None Seen) Urine Comment 01/28/25 01/28/25 01/28/25 Range/Units 16:27 16:27 16:27 WBC (4.8-10.8) K/ul RBC (4.20-5.40) M/uL Hgb 9.7 L (12.0-16.0) g/dl Hct 30.3 L 30.2 L (37.0-47.0) % MCV 90.7 90.7 (80.0-100.0) fL MCH 29.6 (25.0-34.0) pg MCHC (32.0-36.0) g/dL RDW Std Deviation (36.4-46.3) fL RDW Coeff of Nadira (11.5-14.5) % Plt Count (130-400) K/uL MPV (9.4-12.4) fL Immature Gran % (Auto) % Neut % (Auto) % Lymph % (Auto) % Rankin % (Auto) % Eos % (Auto) % Baso % (Auto) % Neut # (Auto) (1.40-6.50) K/uL Lymph # (Auto) (1.20-3.40) K/uL Rankin # (Auto) (0.11-0.59) K/uL Eos # (Auto) (0.00-0.50) K/uL Baso # (Auto) (0.00-0.20) K/uL Immature Gran # (Auto) (0.01-0.20) K/uL Sodium (136-145) mmol/L Potassium (3.5-5.1) mmol/L Chloride (98-107) mmol/L Carbon Dioxide (21-32) mmol/L Anion Gap (3-11) BUN (6-23) mg/dl Creatinine (0.6-1.2) mg/dl Est Cr Clr Drug Dosing eGFR BUN/Creatinine Ratio (10-20) Glucose (70-99(Fasting)) mg/dl Calcium (8.6-10.3) mg/dl Magnesium (1.7-2.4) mg/dl Total Bilirubin (0.2-1.0) mg/dl AST (13-39) U/L ALT (7-52) U/L Alkaline Phosphatase (34-104) U/L Total Protein (6.0-8.3) gm/dl Albumin (3.4-5.0) gm/dl Globulin (2.5-4.0) gm/dl Albumin/Globulin Ratio (0.9-2) Urine Color Urine Appearance (Clear) Urine pH (4.5-7.5) Ur Specific [place] (1.000-1.030) Urine Protein (Negative) Urine Glucose (UA) (Negative) Urine Ketones (Negative) Urine Blood (Negative) Urine Nitrite (Negative) Urine Bilirubin (Negative) Urine Urobilinogen (Negative) Ur Leukocyte Esterase (Negative) Urine WBC (Auto) (0-5) /hpf Urine RBC (Auto) (0-2) /hpf U Hyaline Cast (Auto) (0-2) /lpf U Epithel Cells (Auto) (0-2) /hpf Urine Bacteria (Auto) (None Seen) Urine Comment 01/28/25 01/28/25 01/28/25 Range/Units 16:27 16:27 16:27 WBC (4.8-10.8) K/ul RBC (4.20-5.40) M/uL Hgb (12.0-16.0) g/dl Hct (37.0-47.0) % MCV (80.0-100.0) fL MCH 29.1 (25.0-34.0) pg MCHC 32.7 32.1 (32.0-36.0) g/dL RDW Std Deviation 53.1 H 54.1 H (36.4-46.3) fL RDW Coeff of Nadira 16.1 H (11.5-14.5) % Plt Count (130-400) K/uL MPV (9.4-12.4) fL Immature Gran % (Auto) % Neut % (Auto) % Lymph % (Auto) % Rankin % (Auto) % Eos % (Auto) % Baso % (Auto) % Neut # (Auto) (1.40-6.50) K/uL Lymph # (Auto) (1.20-3.40) K/uL Rankin # (Auto) (0.11-0.59) K/uL Eos # (Auto) (0.00-0.50) K/uL Baso # (Auto) (0.00-0.20) K/uL Immature Gran # (Auto) (0.01-0.20) K/uL Sodium (136-145) mmol/L Potassium (3.5-5.1) mmol/L Chloride (98-107) mmol/L Carbon Dioxide (21-32) mmol/L Anion Gap (3-11) BUN (6-23) mg/dl Creatinine (0.6-1.2) mg/dl Est Cr Clr Drug Dosing eGFR BUN/Creatinine Ratio (10-20) Glucose (70-99(Fasting)) mg/dl Calcium (8.6-10.3) mg/dl Magnesium (1.7-2.4) mg/dl Total Bilirubin (0.2-1.0) mg/dl AST (13-39) U/L ALT (7-52) U/L Alkaline Phosphatase (34-104) U/L Total Protein (6.0-8.3) gm/dl Albumin (3.4-5.0) gm/dl Globulin (2.5-4.0) gm/dl Albumin/Globulin Ratio (0.9-2) Urine Color Urine Appearance (Clear) Urine pH (4.5-7.5) Ur Specific [place] (1.000-1.030) Urine Protein (Negative) Urine Glucose (UA) (Negative) Urine Ketones (Negative) Urine Blood (Negative) Urine Nitrite (Negative) Urine Bilirubin (Negative) Urine Urobilinogen (Negative) Ur Leukocyte Esterase (Negative) Urine WBC (Auto) (0-5) /hpf Urine RBC (Auto) (0-2) /hpf U Hyaline Cast (Auto) (0-2) /lpf U Epithel Cells (Auto) (0-2) /hpf Urine Bacteria (Auto) (None Seen) Urine Comment 01/28/25 01/28/25 01/28/25 Range/Units 16:27 16:27 16:27 WBC (4.8-10.8) K/ul RBC (4.20-5.40) M/uL Hgb (12.0-16.0) g/dl Hct (37.0-47.0) % MCV (80.0-100.0) fL MCH (25.0-34.0) pg MCHC (32.0-36.0) g/dL RDW Std Deviation (36.4-46.3) fL RDW Coeff of Nadira 16.2 H (11.5-14.5) % Plt Count 221 226 (130-400) K/uL MPV 10.8 11.1 (9.4-12.4) fL Immature Gran % (Auto) 1.0 % Neut % (Auto) 73.4 % Lymph % (Auto) 15.4 % Rankin % (Auto) 8.5 % Eos % (Auto) 1.1 % Baso % (Auto) 0.6 % Neut # (Auto) 5.11 (1.40-6.50) K/uL Lymph # (Auto) 1.07 L (1.20-3.40) K/uL Rankin # (Auto) 0.59 (0.11-0.59) K/uL Eos # (Auto) 0.08 (0.00-0.50) K/uL Baso # (Auto) 0.04 (0.00-0.20) K/uL Immature Gran # (Auto) 0.07 (0.01-0.20) K/uL Sodium 141 (136-145) mmol/L Potassium 4.1 (3.5-5.1) mmol/L Chloride 105 (98-107) mmol/L Carbon Dioxide 30 (21-32) mmol/L Anion Gap 6 (3-11) BUN 35 H (6-23) mg/dl Creatinine 2.14 H (0.6-1.2) mg/dl Est Cr Clr Drug Dosing Not Reportable eGFR 24.17 BUN/Creatinine Ratio 16.4 (10-20) Glucose 104 H (70-99(Fasting)) mg/dl Calcium 13.3 H* (8.6-10.3) mg/dl Magnesium 2.4 (1.7-2.4) mg/dl Total Bilirubin 0.3 (0.2-1.0) mg/dl AST 20 (13-39) U/L ALT 34 (7-52) U/L Alkaline Phosphatase 242 H (34-104) U/L Total Protein 6.9 (6.0-8.3) gm/dl Albumin 3.4 (3.4-5.0) gm/dl Globulin 3.5 (2.5-4.0) gm/dl Albumin/Globulin Ratio 1.0 (0.9-2) Urine Color Urine Appearance (Clear) Urine pH (4.5-7.5) Ur Specific [place] (1.000-1.030) Urine Protein (Negative) Urine Glucose (UA) (Negative) Urine Ketones (Negative) Urine Blood (Negative) Urine Nitrite (Negative) Urine Bilirubin (Negative) Urine Urobilinogen (Negative) Ur Leukocyte Esterase (Negative) Urine WBC (Auto) (0-5) /hpf Urine RBC (Auto) (0-2) /hpf U Hyaline Cast (Auto) (0-2) /lpf U Epithel Cells (Auto) (0-2) /hpf Urine Bacteria (Auto) (None Seen) Urine Comment 01/28/25 Range/Units 18:00 WBC (4.8-10.8) K/ul RBC (4.20-5.40) M/uL Hgb (12.0-16.0) g/dl Hct (37.0-47.0) % MCV (80.0-100.0) fL MCH (25.0-34.0) pg MCHC (32.0-36.0) g/dL RDW Std Deviation (36.4-46.3) fL RDW Coeff of Nadira (11.5-14.5) % Plt Count (130-400) K/uL MPV (9.4-12.4) fL Immature Gran % (Auto) % Neut % (Auto) % Lymph % (Auto) % Rankin % (Auto) % Eos % (Auto) % Baso % (Auto) % Neut # (Auto) (1.40-6.50) K/uL Lymph # (Auto) (1.20-3.40) K/uL Rankin # (Auto) (0.11-0.59) K/uL Eos # (Auto) (0.00-0.50) K/uL Baso # (Auto) (0.00-0.20) K/uL Immature Gran # (Auto) (0.01-0.20) K/uL Sodium (136-145) mmol/L Potassium (3.5-5.1) mmol/L Chloride (98-107) mmol/L Carbon Dioxide (21-32) mmol/L Anion Gap (3-11) BUN (6-23) mg/dl Creatinine (0.6-1.2) mg/dl Est Cr Clr Drug Dosing eGFR BUN/Creatinine Ratio (10-20) Glucose (70-99(Fasting)) mg/dl Calcium (8.6-10.3) mg/dl Magnesium (1.7-2.4) mg/dl Total Bilirubin (0.2-1.0) mg/dl AST (13-39) U/L ALT (7-52) U/L Alkaline Phosphatase (34-104) U/L Total Protein (6.0-8.3) gm/dl Albumin (3.4-5.0) gm/dl Globulin (2.5-4.0) gm/dl Albumin/Globulin Ratio (0.9-2) Urine Color Yellow Urine Appearance Turbid A (Clear) Urine pH 6.5 (4.5-7.5) Ur Specific [place] 1.014 (1.000-1.030) Urine Protein 2+ H (Negative) Urine Glucose (UA) Negative (Negative) Urine Ketones Negative (Negative) Urine Blood 2+ H (Negative) Urine Nitrite Negative (Negative) Urine Bilirubin Negative (Negative) Urine Urobilinogen Negative (Negative) Ur Leukocyte Esterase 3+ H (Negative) Urine WBC (Auto) >50 H (0-5) /hpf Urine RBC (Auto) 0-2 (0-2) /hpf U Hyaline Cast (Auto) 6-10 H (0-2) /lpf U Epithel Cells (Auto) 0-2 (0-2) /hpf Urine Bacteria (Auto) 3+ H (None Seen) Urine Comment Administered Medications Discontinued Medications Sodium Chloride (Nss) 1,000 mls @ 999 mls/hr IV .[id number] ONE Stop: 01/28/25 18:35 Last Admin: 01/28/25 18:00 Dose: 999 mls/hr Documented By: TNK Discharge Plan Visit Data Chief Complaint: Referred by Doctor Stated Complaint: ABNORMAL LABS, REF BY DOC ED Provider: Qasim Sotelo Discharge Problem: MOSHE (acute kidney injury), Anemia, Hypercalcemia, Urinary tract infection Patient Disposition: Being Evaluated by Hospitalist Condition: Fair Forms Stand Alone Forms: My [facility] [employer] Prescriptions Prescriptions: No Action metoprolol succinate 25 mg Tablet Extended Release 24 Hr 25 mg PO QAM Qty: 30 1RF diphenhydramine HCl 25 mg Tablet 25 mg PO HS cholecalciferol (vitamin D3) [Vitamin D3] 25 mcg (1,000 unit) Tablet 1,000 unit PO QAM Centrum Silver Women 8 mg iron-400 mcg-300 mcg Tablet 1 tab PO QAM amlodipine 2.5 mg tablet 2.5 mg PO BID solifenacin 10 mg tablet 10 mg PO DAILY Tymlos 80 mcg (3,120 mcg/1.56 mL) pen injector 80 mcg SUBCUT DAILY Referrals Referrals: Judd Wise DO [Primary Care Provider] -
[2025-01-28] MEDS: SODIUM CHLORIDE 0.9% 1,000 ML IV ONE (18:00)
[2025-01-28 18:34] LABS: Appearance Urine Turbid (Clear); Bacteria Urine Automated 3+ (None Seen); Epithelial Cell Urine Auto 0-2 /hpf (0-2); Glucose Urine UA Negative (Negative); RBC Urine Automated 0-2 /hpf (0-2); WBC Urine Automated >50 /hpf (0-5)
--- NOTE | 2025-01-28 18:59 | History & Physical Report ---
Date of Service January 28, 2025 Assessment & Plan (1) MOSHE (acute kidney injury): (2) Hypercalcemia: Plan: Patient presenting by referral of PCPs office for evaluation of hypercalcemia, MOSHE, anemia. Patient has been being treated for Enterococcus UTI over the past 1 month. Urine culture from 12/27 grew Enterococcus and patient completed a course of Bactrim. states that urine remained cloudy and patient was mildly confused therefore urine was repeated on 01/12 still showing Enterococcus. Patient was then placed on a course of Macrobid which she completed last week. reports ongoing cloudy urine and mild confusion and therefore urine was repeated yesterday and patient was evaluated in PCP office today. Labs were obtained showing calcium 13.7, creatinine 2.1, Hgb 9.4. Patient noted to have normal labs in October. In the ED, she is hemodynamically stable. Labs show Hgb 9.9, creatinine 2.1, calcium 13.3, alk phos 242. UA suggestive of UTI. Patient was given IVF. Continue IVF Check vitamin D and PTH Trend calcium CT ABD/pelvis Pending above workup, could consider SPEP and UPEP given associated anemia and MOSHE (3) Anemia: Plan: Hgb 9.9 Outpatient labs from 10/2023 show Hgb 13.8 No obvious signs of bleeding Check iron panel Stool for Hemoccult (4) UTI (urinary tract infection): Plan: Despite courses of Bactrim and Macrobid, UA shows ongoing UTI Outpatient urine cultures from 12/27 and 01/12 show Enterococcus with resistant to tetracycline Currently afebrile, no leukocytosis Given penicillin allergy and MOSHE, will start IV Dapto Follow urine culture CT ABD/pelvis as above (5) Multiple sclerosis: Plan: Wheelchair and bedbound at baseline (6) Hypertension: Plan: 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 Benitez. I spent a total of 75 minutes coordinating, documenting, and providing care for this patient excluding time spent in the performance of separately billed services. This included personally reviewing all current laboratories and imaging studies, medication reconciliation, outpatient chart review, and d iscussion with specialists. History of Present Illness Chief Complaint: referred for abnormal labs Primary Care Provider: Judd Wise DO 69-year-old female with PMH MS, cecal cancer s/p colectomy, osteoporosis, HTN, isolated episode of atrial fibrillation without recurrence, no longer on anticoagulation, and other problems listed below who was referred to the ED by PCP for hypercalcemia, MOSHE, anemia. Patient has been being treated for Enterococcus UTI over the past 1 month. Urine culture from 12/27 grew Enterococcus and patient completed a course of Bactrim. states that urine remained cloudy and patient was mildly confused therefore urine was repeated on 01/12 still showing Enterococcus. Patient was then placed on a course of Macrobid which she completed last week. reports ongoing cloudy urine and mild confusion and therefore urine was repeated yesterday and patient was evaluated in PCP office today. Labs were obtained showing calcium 13.7, creatinine 2.1, Hgb 9.4. Patient noted to have normal labs in October. Patient offers no other complaints at this time. In the ED, she is hemodynamically stable. Labs show Hgb 9.9, creatinine 2.1, calcium 13.3, alk phos 242. UA suggestive of UTI. Patient was given IVF. Allergies Allergy/AdvReac Type Severity Reaction Status Date / Time CHEPE Inhibitors Allergy Intermediate SHORTNESS Verified 05/01/23 10:13 OF BREATH Penicillins Allergy Intermediate swelling Verified 05/01/23 10:13 Xeianfh-NJB-ZzA Reductase Allergy Intermediate SHORTNESS Verified 05/01/23 10:13 Inhibitor OF BREATH [Qsjmnji-Atw-Yng Reductase Inhibitor] Home Medications Medication Instructions Recorded Confirmed Type cholecalciferol (vitamin D3) 25 1,000 unit PO QAM 06/30/20 01/28/25 History mcg (1,000 unit) tablet (Vitamin D3) diphenhydramine HCl 25 mg tablet 25 mg PO HS 06/30/20 01/28/25 History vrbcetnp-cfcv-tzgb 8 mg-folic 400 1 tab PO QAM 06/30/20 01/28/25 History mcg-K 50 mcg-lutein 300 mcg tablet (Centrum Silver Women) metoprolol succinate 25 mg 25 mg PO QAM #30 tabs 08/08/22 01/28/25 Rx tablet,extended release 24 hr abaloparatide (Tymlos) 80 mcg subcut DAILY 01/28/25 01/28/25 History amlodipine 2.5 mg tablet 2.5 mg PO BID 01/28/25 01/28/25 History solifenacin 10 mg tablet 10 mg PO DAILY 01/28/25 01/28/25 History Past Med/Surg History Problem List (Updated 01/28/25 @ 19:02 by Qasim Sotelo DO) Urinary tract infection (Acute) Hypercalcemia (Acute) Anemia (Acute) MOSHE (acute kidney injury) (Acute) Colon cancer Hypokalemia (Acute) Acute dehydration (Acute) Aspiration into airway (Acute) Acute hypoxemic respiratory failure (Acute) History of colon cancer Encounter for pre-operative examination Encounter for pre-operative examination Transaminitis (Acute) Atrial fibrillation with RVR follows with Dr. Keyes--reason for eliquis/metoprolol Multiple sclerosis (Chronic) wheelchair bound Medical History On anticoagulant therapy eliquis bid History of colon cancer diagnosed 2011--sx Wheelchair bound does need MARVIN lift to be moved from wheelchair to bed Hypertension Surgical History History of colonoscopy History of bilateral tubal ligation History of appendectomy History of colon surgery (~2011) to remove colon cancer @ [facility] History of wisdom tooth extraction History of tooth extraction Family History Other No family history of adverse response to anesthesia Social History Smoking Status: Never smoker Second Hand Exposure: No; Do You Dip or Chew Tobacco: No; Hx Alcohol Use: Yes Alcohol type: wine Hx Substance Use: No Preferred Language: Citizen Of [place] Communication Ability: Effective Mapping Editor Required: No Beliefs That Will Affect Care: None Current Living Situation: Spouse Feels Safe at Home: Yes Assistive Devices: Glasses, Mechanical Lift and Wheelchair Review of Systems Review of Systems: All systems reviewed & are unremarkable except as noted in HPI & below Physical Exam Constitutional: WD/WN, vitals as above no acute distress Respiratory: normal respiratory effort, lungs clear to auscultation Cardiovascular: Rate/Rhythm: regular rate and regular rhythm Vessels: normal peripheral pulses Extremities: + edema (+1-2 edema BLE ) Gastrointestinal (Abdomen): Percussion/Palpation: abdomen soft; abdomen nontender Skin: no rashes, warm and dry Neurologic: Generalized weakness, history of MS Psychiatric: Orientation: alert and oriented x 3 Affect: + flat affect Results & Data Results & Data Vital Signs (Past 12 Hours) Vital Signs Pulse Pulse Resp BP BP Pulse Ox O2 Del Method 01/28/25 18:00 66 22 01/28/25 18:00 132/106 H 01/28/25 17:39 66 18 01/28/25 17:36 67 01/28/25 17:33 67 20 145/78 H 98 Room Air 01/28/25 16:00 66 16 137/71 99 Room Air Laboratory Results Short CBC 01/28/25 Range/Units 16:27 WBC 6.96 (4.8-10.8) K/ul Hgb 9.9 L (12.0-16.0) g/dl Hct 30.3 L (37.0-47.0) % Plt Count 221 (130-400) K/uL BMP 01/28/25 16:27 Sodium 141 Potassium 4.1 Chloride 105 Carbon Dioxide 30 BUN 35 H Creatinine 2.14 H Glucose 104 H Calcium 13.3 H* Liver Function 01/28/25 Range/Units 16:27 Total Bilirubin 0.3 (0.2-1.0) mg/dl AST 20 (13-39) U/L ALT 34 (7-52) U/L Alkaline Phosphatase 242 H (34-104) U/L Albumin 3.4 (3.4-5.0) gm/dl Urine 01/28/25 Range/Units 18:00 Urine Color Yellow Urine Appearance Turbid A (Clear) Urine pH 6.5 (4.5-7.5) Ur Specific Hobson 1.014 (1.000-1.030) Urine Protein 2+ H (Negative) Urine Glucose (UA) Negative (Negative) Code Status & VTE Plan VTE Prophylaxis Plan VTE Prophylaxis will be ordered: Yes Supervising Physician Co-Signing Physician Notes Pt seen and examined by me, care coordinated w/ L. ALISTAIR Sharp, pls 69 yo F with MS, cecal cancer s/p colectomy, osteoporosis, HTN, isolated episode of atrial fibrillation without recurrence, no longer on anticoagulation, who was referred to the ED by PCP for hypercalcemia, MOSHE, anemia. Patient has been being treated for Enterococcus UTI over the past 1 month. Urine culture from 12/27 grew Enterococcus and patient completed a course of Bactrim. states that urine remained cloudy and patient was mildly confused therefore urine was repeated on 01/12 still showing Enterococcus. Patient was then placed on a course of Macrobid which she completed last week. reports ongoing cloudy urine and mild confusion and therefore urine was repeated yesterday and patient was evaluated in PCP office today. Labs were obtained showing calcium 13.7, creatinine 2.1, Hgb 9.4. Patient noted to have normal labs in October. Patient offers no other complaints at this time. In the ED, she is hemodynamically stable. Labs show Hgb 9.9, creatinine 2.1, calcium 13.3, alk phos 242. UA suggestive of UTI. Patient was given IVF. Currently pt is lying in bed in NAD, awake, alert, answers appropriately. pt's present at the bedside and provides most of the history. Heart sounds regular, lungs clear to auscultation. Abdomen soft, nontender, no flank tenderness noted. Kahn placed in ED. pt is moving extremities. Will cont. w/ IVF and will re-check BMP/ Ca level this evening. Will obtain pe ripheral smear and anemia work-up. Will cont. UTI treatment w/ daptomycin , will await cultx. MD Eli
[2025-01-28 19:01] LABS: Hematocrit (blood only) 30.2 % (37.0-47.0); Hemoglobin 9.7 g/dl (12.0-16.0); Mean Corpuscular Hemoglobin 29.1 pg (25.0-34.0); Mean Corpuscular Volume 90.7 fL (80.0-100.0); Platelet Count 226 K/uL (130-400); RDW Standard Deviation 54.1 fL (36.4-46.3); Red Blood Count 3.33 M/uL (4.20-5.40); White Blood Count 7.09 K/ul (4.8-10.8)
[2025-01-28 19:27] LABS: Immature Granulocytes # (auto) 0.09 K/uL (0.01-0.20); Immature Granulocytes % (auto) 1.3 %
--- NOTE | 2025-01-28 19:48 | CT Scan Report ---
Technique: Axial computed tomography images were obtained of the abdomen and pelvis without intravenous contrast. Findings: The liver is overall of normal size, attenuation, and contour with no sign of cirrhosis or significant fatty infiltration. No definite liver mass lesion is seen on this noncontrast study. There are numerous gallstones. There is no definite sign of acute cholecystitis. No bile duct dilatation is noted. The spleen is of normal size. No focal splenic lesion is evident. The pancreas appears normal with no sign of acute or chronic pancreatitis and no mass lesion noted. The pancreatic duct is of normal caliber. The adrenal glands appear unremarkable. There is a 7 mm right renal calculus. No left renal or proximal ureteral calculi are seen. There is no hydronephrosis or perinephric stranding. No definite renal mass lesion is identified. The aorta is of normal caliber. No abdominal adenopathy is seen. The stomach appears normal. There is possible mild wall thickening of the proximal duodenum with mild adjacent soft tissue stranding. There is no sign of small bowel obstruction. The colon appears unremarkable. The appendix appears to have been removed. No free intraperitoneal fluid or air is identified. No distal ureteral or bladder calculi are seen. The bladder is decompressed, containing a Kahn catheter. The iliac arteries are of normal caliber. No pelvic adenopathy is noted. There is a small right pleural effusion. There is mild bilateral lower lobe atelectasis. There is coronary atherosclerosis Mild thoracolumbar degenerative disc disease is seen. No fracture is identified. No focal osseous lesion is seen Impression: 1. Small right pleural effusion and bilateral lung base atelectasis 2. Cholelithiasis without evidence of acute cholecystitis 3. Nonobstructing right renal calculus 4. Apparent mild wall thickening of the proximal duodenum, which could be due to peptic ulcer disease or other inflammation ACT 112: Positive. There are findings on this exam that require communication between the performing entity and the patient following Patient Test Result Information Act ([place] ACT 112) guidelines. Electronically signed by Vinnie Montalvo 01-28-2025 7:47 PM
[2025-01-28] MEDS: cefTRIAXone SODIUM 2,000 MG/50 ML BAG IV STA (19:56)
[2025-01-28 20:02] LABS: Iron 36 mcg/dl (35-150); Total Iron Binding Cap Calc 297 mcg/dl (250-450); Transferrin 212 mg/dl (200-360); Transferrin (FE) Percent Satur 12 % (15-50)
[2025-01-28] MEDS: DAPTOmycin 350 MG in SYRINGE 0 ML IV SCH (22:54)
[2025-01-28] MEDS: SODIUM CHLORIDE 0.9% 1,000 ML IV SCH (22:58)
[2025-01-28] MEDS: HEPARIN SOD 5,000 UNIT/0.5 ML VIAL SQ SCH (23:00)
[2025-01-29 00:14] LABS: Anion Gap 7.0 (3-11); Blood Urea Nitrogen 34.0 mg/dl (6-23); Calcium 12.2 mg/dl (8.6-10.3); Carbon Dioxide 27.0 mmol/L (21-32); Chloride 109.0 mmol/L (98-107); Creatinine Clr Calc Pharmacy 22.9 ml/min; Glucose 79.0 mg/dl (70-99(Fasting)); Potassium 3.7 mmol/L (3.5-5.1); Sodium 143.0 mmol/L (136-145)
[2025-01-29 07:17] LABS: Hematocrit (blood only) 23.0 % (37.0-47.0); Hemoglobin 7.6 g/dl (12.0-16.0); Mean Corpuscular Hemoglobin 30.4 pg (25.0-34.0); Mean Corpuscular Volume 92.0 fL (80.0-100.0); Platelet Count 186 K/uL (130-400); RDW Standard Deviation 54.8 fL (36.4-46.3); Red Blood Count 2.50 M/uL (4.20-5.40); White Blood Count 5.37 K/ul (4.8-10.8)
--- NOTE | 2025-01-29 07:53 | Hospitalist Progress Note ---
Date of Service January 29, 2025 Assessment & Plan (1) MOSHE (acute kidney injury): Plan: Patient is a 69y/o F with PMHx significant for multiple sclerosis with paraplegia, multiple sclerosing hemangiomas of lung, isolated PAF without recurrence in setting of witnessed choking event which resolved with Heimlich maneuver, HTN, senile osteoporosis, history of colon CA s/p surgery and LUIZ who presented to the ED on 01/28/25 via referral by PCP for further evaluation of abnormal outpatient labs completed earlier in the day which revealed hypercalcemia, MOSHE and anemia. OP labs, 01/28/25: serum calcium 13.7, Hgb 9.4, Cr 2.1, BUN 35, eGFR 25. Cr previously 0.9 as of 10/11/24, no prior history of renal disease. Cr 2.14 on presentation, 1.84 this AM s/p 4L NSS so far. eGFR 28.98, BUN 30. Appreciate nephro consult. Suspect prerenal etiology in setting of recurrent UTI, poor baseline p.o. intake and hypercalcemia. Continue NSS @ 100cc/hr for now and following repeat renal function testing in AM. (2) Hypercalcemia: Plan: Serum calcium previously 10.5 as of 10/11/24, 13.3 on presentation. Improving this AM to 11.1 with IVF running. Ionized calcium 1.74, 25-OH vit D 70.8, intact PTH and TSH WNL. SPEP, UPEP ordered and pending as part of MM workup. Parathyroid hormone-related peptide ordered and pending. Urine calcium, serum calcium ordered and pending. Again appreciate nephro consult. No need of Zometa and/or calcitonin at this time. Holding Tymlos injection as it can cause hypercalcemia, hypercalciuria. Hold off on multivitamin and vitamin D supplementation. Suspect may trigger volume depletion which was then worsened by vitamin D supplementation, Tymlos injection. (3) Anemia: Plan: Hgb previously 13.8 as of 10/09/24, 9.9 on presentation. Hgb 7.6 this AM with likely hemodilutional component contributing. Still with no obvious s/sx of bleeding. Iron, TIBC, transferrin and TSAT% WNL. Check ferritin. Peripheral smear ordered and pending. Reticulocyte count ordered and pending. Also checking LDH, haptoglobin for hemolytic anemia workup although etiology is unclear at this time. Continue to monitor, transfuse as needed. (4) UTI (urinary tract infection): Plan: History of neurogenic bladder. Now with recurrent UTIs. Has completed 2 rounds of antibiotics in the last month including Macrobid and Bactrim. Previous OP urine cultures growing Enterococcus species with susceptibility to ampicillin, nitrofurantoin and vancomycin. Resistant to tetracycline. Patient with allergy to penicillins, reportedly causes swelling. Continuing to have ongoing sx including cloudy urine, confusion. Repeat UA in ED with 2+ protein, 3+ LE, >50 WBC and 3+ bacteria. Started on IV daptomycin on admission given history of penicillin allergy and MOSHE. CTAP with nonobstructing right renal calculus. Continue IV daptomycin pending urine culture results. Kahn catheter placed in the ED, did NOT have urinary catheter in place SIZE STAMPER. (5) Confusion: Plan: Likely multifactorial etiology in setting of UTI, hypercalcemia and MOSHE. Patient A&O mostly to self, able to state name and this AM but otherwise unable to provide any history. At baseline patient is A&O x 3. , Valdo, at bedside who provides history. (6) Multiple sclerosis: Plan: Wheelchair-bound at baseline; paraplegia. Lives at home with , has caregivers available Friday-Friday. Requires assistance with feeds. BUE weakness progressing per . (7) Mobitz type 2 second degree AV block: Plan: Had transient 10 to 20-second episode of second-degree AV block type 2 overnight. No recurrence, has been in NSR on telemetry per d/w RN. Repeat EKG pending. Cardiology consult placed overnight, appreciate their input. (8) Hypothermia: Plan: Noted overnight, Mati hugger subsequently applied. Temperature improved. Lactate, procalcitonin negative. Unclear etiology at this time. MS lesions in the hypothalamus and related pathways can result in impaired thermoregulation. (9) Hypertension: Plan: Continue SIZE STAMPER Toprol-XL. Hypotensive this AM so will hold Norvasc for now, resume as able. DVT Prophylaxis: SCDs/TEDs only for now given anemia Code Status: FULL CODE PCP: Judd Wise DO Disposition: DC plans uncertain at this time Patient seen in collaboration with Dr. Florian. Please see addendum. I spent a total of 64 minutes coordinating, documenting, and providing care for this patient excluding time spent in the performance of separately billed services or time spent by another provider/QHP. This included personally reviewing all current laboratories and imaging studies, medical reconciliation, outpatient chart review and discussion with specialists. This chart was completed in part utilizing Speech Voice Recognition Software. Grammatical errors, random word insertions, pronoun errors, and incomplete sentences are an occasional consequence of this system due to software limitations, ambient noise, and hardware issues. Any formal questions or concerns about the content, text, or information contained within the body of this dictation should be directly addressed to the provider for clarification. Admission and Anticipated Discharge Date Admission Date: January 28, 2025 Supervising Physician Co-Signing Physician Notes Patient seen and examined History obtained from at bedside. Reviewed EPIC records Agree with findings and plans as detailed by Yarelis Samaniego PA-C Subjective Patient seen and examined in room E218-1. Patient A&O to person but no place or situation. Mostly oriented to self. at bedside, Valdo, who provides history. Patient treated with 2 antibiotic courses in the past month for recurrent UTI. History of progressive MS. Wheelchair bound at baseline, requires assistance with feeds. Patient A&Ox3 at baseline. Patient was noted to be hypothermic overnight and had Mati hugger applied. Also had a transient 10 to 20-second episode of second-degree AV block type 2 overnight. Since then, has been in NSR on telemetry per d/w RN. Review of Systems Review of Systems: Unable to properly obtain, patient very drowsy but arousable. A&O mostly to self. Physical Exam Physical Exam: General/Neuro: Thin F, A&O to person but not situation or place, states name and , chronically ill-appearing, laying down in bed on R side HEENT: Mouth hanging open, dry mucous membranes Respiratory: Normal respiratory effort, CTAB but limited exam as pt poor with following commands Cardiovascular: Regular rate, rhythm, normal peripheral pulses, trace BLE edema Abdomen/GI: Normal bowel sounds, soft, nontender to palpation in all quadrants Extremities/MSK: No cyanosis or clubbing, + chronic BLE weakness and inability to ambulate, wheelchair bound, + chronic BUE weakness (R>L) Results & Data Results & Data Vital Signs (Past 12 Hours) Vital Signs Temp Pulse Pulse Pulse Resp BP Pulse Ox 10/25/25 07:23 37.2 C 90 20 117/61 95 01/29/25 05:06 36.4 C L 01/29/25 03:05 36.6 C 81 24 142/85 H 93 01/29/25 01:22 01/29/25 01:17 35.5 C L 01/29/25 01:15 35.6 C L 77 21 142/79 H 95 01/29/25 01:01 75 01/28/25 23:00 34.6 C L 01/28/25 22:08 34.9 C L 70 12 149/87 H 97 01/28/25 21:54 37.1 C 01/28/25 21:44 71 01/28/25 21:00 70 18 142/94 H 98 O2 Del Method 01/29/25 07:23 Room Air 01/29/25 05:06 01/29/25 03:05 Room Air 01/29/25 01:22 Room Air 01/29/25 01:17 01/29/25 01:15 Room Air 01/29/25 01:01 01/28/25 23:00 01/28/25 22:08 Room Air 01/28/25 21:54 01/28/25 21:44 01/28/25 21:00 Room Air Laboratory Results Short CBC 01/28/25 01/28/25 01/28/25 Range/Units 16:27 16:27 16:27 WBC 6.96 7.09 (4.8-10.8) K/ul Hgb 9.9 L 9.7 L (12.0-16.0) g/dl Hct 30.3 L (37.0-47.0) % Plt Count (130-400) K/uL 01/28/25 01/28/25 01/29/25 Range/Units 16:27 16:27 06:40 WBC 5.37 (4.8-10.8) K/ul Hgb 7.6 L (12.0-16.0) g/dl Hct 30.2 L 23.0 L (37.0-47.0) % Plt Count 221 226 186 (130-400) K/uL BMP 01/28/25 01/28/25 01/29/25 16:27 23:06 06:40 Sodium 141 143 144 Potassium 4.1 3.7 3.8 Chloride 105 109 H 113 H Carbon Dioxide 30 27 26 BUN 35 H 34 H 30 H Creatinine 2.14 H 2.03 H 1.84 H Glucose 104 H 79 67 L Calcium 13.3 H* 12.2 H* 11.1 H Liver Function 01/28/25 01/29/25 Range/Units 16:27 06:40 Total Bilirubin 0.3 0.2 (0.2-1.0) mg/dl AST 20 26 (13-39) U/L ALT 34 37 (7-52) U/L Alkaline Phosphatase 242 H 188 H (34-104) U/L Albumin 3.4 2.5 L (3.4-5.0) gm/dl Urine 01/28/25 Range/Units 18:00 Urine Color Yellow Urine Appearance Turbid A (Clear) Urine pH 6.5 (4.5-7.5) Ur Specific [place] 1.014 (1.000-1.030) Urine Protein 2+ H (Negative) Urine Glucose (UA) Negative (Negative)
[2025-01-29 08:02] LABS: Reticulocytes # 0.050 10^6/uL (0.020-0.100)
[2025-01-29 08:29] LABS: Alanine Aminotransferase 37.0 U/L (7-52); Albumin Globulin Ratio 0.9 (0.9-2); Albumin Level 2.5 gm/dl (3.4-5.0); Alkaline Phosphatase 188.0 U/L (34-104); Anion Gap 5.0 (3-11); Bilirubin,Total 0.2 mg/dl (0.2-1.0); Blood Urea Nitrogen 30.0 mg/dl (6-23); Calcium 11.1 mg/dl (8.6-10.3); Carbon Dioxide 26.0 mmol/L (21-32); Chloride 113.0 mmol/L (98-107); Creatinine Clr Calc Pharmacy 25.2 ml/min; Globulin 2.8 gm/dl (2.5-4.0); Glucose 67.0 mg/dl (70-99(Fasting)); Potassium 3.8 mmol/L (3.5-5.1); Sodium 144.0 mmol/L (136-145); Thyroid Stimulating Hormone 2.604 uIu/ml (0.300-4.500); Total Protein 5.3 gm/dl (6.0-8.3)
[2025-01-29 08:59] LABS: Folate (Folic Acid),Ser orPlas > 22.30 ng/ml (>5.38)
[2025-01-29 09:00] LABS: Vitamin B12 1032 pg/ml (180-914)
[2025-01-29] MEDS ORDERED: GLUCAGON FOR INJ 1 MG VIAL SQ PRN (10:02)
[2025-01-29] MEDS ORDERED: DEXTROSE 50% 50 ML SYRINGE IV PRN (10:02)
[2025-01-29] MEDS ORDERED: GLUCOSE 40% GEL 15 GM TUBE PO PRN (10:02)
[2025-01-29] MEDS ORDERED: GLUCOSE 10 TAB/TUBE PO PRN (10:02)
[2025-01-29] MEDS ORDERED: CARBOHYDRATES FOR HYPOGLYCEMIA PO PRN (10:02)
[2025-01-29] MEDS: METOPROLOL SUCC 25MG EXT REL TAB PO SCH (11:09)
--- NOTE | 2025-01-29 11:21 | Nephrology Consultation ---
Date of Consultation January 29, 2025 Assessment & Plan (1) MOSHE (acute kidney injury): Appears pre renal type in the setting of recurrent UTI, very poor oral Intake and now Hypercalcemia. this Can make pre renal Situation lot worse. Creat normal at baseline. was 2.14 Adx and now down to 1.8 and increasing urine output. also ca coming down quick so good signs. Will treat UTI. Daily renal panel and CBC is enough. expect further improvement. (2) Hypercalcemia: ca 13.7 but in less than 24 hrs time down to 11.1. NO need of other treatments. Will continue NS at 125 ml /hr. Check renal Panel again in AM. hold off Tymlos Injection as it can cause hypercalcemia. hold off Multivitamin and Vit D ( note level high at 70). pending Myeloma workup. tymlos can cause Hypercalciuria so being checked. But had normal ca in even though has been on this injection for about 9 months. the main trigger was the volume depletion and then worsened by Vit D and tymlos. PTH was not fully suppressed though. need to repeat again. No need of Zometa and /or Calcitonin. (3) Urinary tract infection: Now on Daptomicin. Conitnue same Plan Complex patient. time spent 63 mins History of Present Illness Reason for Consultation: MOSHE and Hypercalcemia Attending Physician: Suad Florian MD History of Present Illness 69/F with Severe MS ( bed /wheelchair bound) , cecal cancer s/p colectomy, Severe osteoporosis on Daily Tymlos injection/Vit D, HTN, isolated episode of atrial fibrillation without recurrence, no longer on anticoagulation was referred to the ED by PCP because of abnormal labs done outpt showing hypercalcemia 13.7 , MOSHE creat 2.1 ( baseline is normal) anemia. Patient has been being treated for Enterococcus UTI over the past 1 month. Urine culture from 12/27 grew Enterococcus and patient completed a course of Bactrim then macrobid. states that urine remained cloudy and patient was mildly confused therefore urine was repeated on 01/12 still showing Enterococcus. reports ongoing cloudy urine and worsening confusion and therefore urine was repeated yesterday and patient was evaluated in PCP office today. Patient noted to have normal labs in October. Patient offers no other complaints at this time. She is sleeping and weak. Unable to give history. at bedside. She is hemodynamically stable. UA suggestive of UTI. Patient was given IVF. with that labs have improved quickly. Now ca down to 11.1. Ceat down to 1.8. Vit d was high at 70 and PTH only partially suppressed. Vit D, her daily tymlos injection and MVI is on hold. has jimenez. Making more clear urine today than yesterday. Myeloma w/u pending. ROS--Unable to obtain. 12 Systems reviewed and otherwise negative Physical Exam Constitutional: Chronically ill. Sleepy and weak. unable to give any history Respiratory: normal respiratory effort, lungs clear to auscultation Cardiovascular: Rate/Rhythm: regular rate and regular rhythm Vessels: normal peripheral pulses Extremities: + edema (+1 edema BLE ) Gastrointestinal (Abdomen): Percussion/Palpation: abdomen soft; abdomen nontender Skin: no rashes, warm and dry Neurologic: Generalized weakness, history of MS Psychiatric: Unable to exam. Allergies Allergy/AdvReac Type Severity Reaction Status Date / Time CHEPE Inhibitors Allergy Intermediate SHORTNESS Verified 05/01/23 10:13 OF BREATH Penicillins Allergy Intermediate swelling Verified 05/01/23 10:13 Fifgpxm-UAG-SeE Reductase Allergy Intermediate SHORTNESS Verified 05/01/23 10:13 Inhibitor OF BREATH [Swnlaih-Jxt-Jqx Reductase Inhibitor] Home Medications Medication Instructions Recorded Confirmed Type cholecalciferol (vitamin D3) 25 1,000 unit PO QAM 06/30/20 01/28/25 History mcg (1,000 unit) tablet (Vitamin D3) diphenhydramine HCl 25 mg tablet 25 mg PO HS 06/30/20 01/28/25 History eakyodmd-pitp-zque 8 mg-folic 400 1 tab PO QAM 06/30/20 01/28/25 History mcg-K 50 mcg-lutein 300 mcg tablet (Centrum Silver Women) metoprolol succinate 25 mg 25 mg PO QAM #30 tabs 08/08/22 01/28/25 Rx tablet,extended release 24 hr abaloparatide (Tymlos) 80 mcg subcut DAILY 01/28/25 01/28/25 History amlodipine 2.5 mg tablet 2.5 mg PO BID 01/28/25 01/28/25 History solifenacin 10 mg tablet 10 mg PO DAILY 01/28/25 01/28/25 History Patient History Medical History On anticoagulant therapy eliquis bid History of colon cancer diagnosed 2011--sx Wheelchair bound does need MARVIN lift to be moved from wheelchair to bed Hypertension Surgical History History of colonoscopy History of bilateral tubal ligation History of appendectomy History of colon surgery (~2011) to remove colon cancer @ [facility] History of wisdom tooth extraction History of tooth extraction Family History Other No family history of adverse response to anesthesia Social History (Reviewed 01/29/25 @ 11: by Calderon Parra MD) Smoking Status: Never smoker Second Hand Exposure: No; Do You Dip or Chew Tobacco: No; Hx Alcohol Use: No Hx Substance Use: No Preferred Language: Comoran Communication Ability: Effective Solar 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 Consultant Required: No Beliefs That Will Affect Care: None Current Living Situation: Spouse Current Living Situation Comment: House with spouse Feels Safe at Home: Yes Assistive Devices: Glasses and Wheelchair Results & Data Vital Signs (Past 12 Hours) Vital Signs Temp Pulse Pulse Resp BP Pulse Ox O2 Del Method 01/29/25 11:02 37.3 C 89 18 109/56 L 94 Room Air 01/29/25 07:23 37.2 C 90 20 117/61 95 Room Air 01/29/25 05:40 85 01/29/25 05:06 36.4 C L 01/29/25 03:05 36.6 C 81 24 142/85 H 93 Room Air 01/29/25 01:22 Room Air 01/29/25 01:17 35.5 C L 01/29/25 01:15 35.6 C L 77 21 142/79 H 95 Room Air 01/29/25 01:01 75
--- NOTE | 2025-01-29 13:41 | Cardiology Consultation ---
Date of Consultation January 29, 2025 Assessment & Plan (1) Second degree AV block: (2) Paroxysmal atrial fibrillation: (3) Urinary tract infection: (4) Hypercalcemia: (5) Anemia: Plan 69 year-old female who was referred to [facility] by primary care provider for evaluation of hypercalcemia, MOSHE and anemia. Had a positive urine culture on 12/27/24 for Enterococcus and completed a course of Bactrim. Repeat urine culture on 01/12/25 still showed Enterococcus and completed a course of Macrobid. She continued to have cloudy urine and mild confusion despite treatment. Urinalysis upon admission suggestive of UTI. Received IV fluids. Work-up remarkable for hemoglobin 9.9, creatinine 2.1, calcium 13.3, and alk phosphatase 242. EKG revealed sinus rhythm with 1st degree AV block. No acute ischemic changes or significant arrhythmias. Found to have a short 6-second episode of second degree AV block - Mobitz I overnight. Cardiology consulted for further evaluation and management. History of paroxysmal atrial fibrillation with one-time episode in the setting of a witnessed choking event and resolved with the Heimlich maneuver. She was on a short-course of anticoagulation but discontinued after 30-days. Denies recurrent tachy palpitations. History of obstructive sleep apnea with positive sleep study outpatient. endorse snoring and gasping noises at night as well as daytime fatigue. Plan/Recommendations: * Remains stable and asymptomatic from a cardiac standpoint * Sinus rhythm with rates in 70-80s and blocked PACs noted on telemetry overnight * Blood pressure and heart rate remain stable * EKG upon admission with no acute ischemic changes or significant arrhythmias * Continue to monitor and replace electrolytes as needed (goal K+ > 4.0; Mg > 2.0) * Brief episode of second-degree AV block - Mobitz I felt to be secondary to untreated obstructive sleep apnea. Would recommend outpatient sleep medicine evaluation to discuss evaluation and management of suspected JOSR. * Recommend Zio monitor to assess for high-grade AV block and outpatient follow- up with cardiology * Continue COMMUNITY SERVICE TECHNICIAN amlodipine and toPROL XL as per current regimen * Continue to monitor on telemetry Case discussed and coordinated with Dr. Snyder. Please see Dr. Snyder notes for further recommendations. I spent a total of 45 minutes coordinating, documenting, and providing care for this patient excluding time spent in the performance of separately billed services or time spent by another provider/QHP. ALISTAIR [place] Department of Cardiology Supervising Physician Co-Signing Physician Notes Patient seen and examined. Past medical history, surgical history, social history and family history have been reviewed. The medical record and all the above studies have been reviewed. Case DW DIAZ including management. PAF Arrhythmia UTI MOSHE - likely prerenal Sleep Apnea Hypercalcemia Anemia ?Toxic metabolic encephalopathy Multiple sclerosis Hypothermia HTN Tele reviewed with television equipment operator - no evidence of High grade AV block; apparent transient non-conducted PACs seen at about 1AM while patient was asleep and likely related to JOSR correct and f/u electrolytes f/u renal function adjust anti-HTN meds keeping systolic BP between 100-140 mmHg avoid hypovolemia keep patient euvolemic DVT prophylaxis ABX as per primary team IVF continue medical optimization continue current cardiac meds f/u with cardiology as outpatient post discharge please recall if needed will sign off History of Present Illness Reason for Consultation: Second degree AV block Requesting Physician: Abram Alex MD Attending Physician: Suad Florian MD History of Present Illness 69 year-old female who was referred to [facility] by primary care provider for evaluation of hypercalcemia, MOSHE and anemia. Found to have a short 6-second episode of second degree AV block - Mobitz I overnight. Cardiology consulted for further evaluation and management. Poor historian with confusion and lethargy. present at bedside upon examination. History obtained from and chart review. She had a positive urine culture on 12/27/24 for Enterococcus and completed a course of Bactrim. Her urine remained cloudy and patient had mild confusion. Repeat urine culture on 01/12/25 still showed Enterococcus and completed a course of Macrobid. She continued to have cloudy urine and mild confusion despite treatment. She was noted to have elevated calcium on lab work-up outpatient and referred to hospital by primary care provider for further evaluation. Her notes that she is always cold. Denies fever, muscle aches, cough, congestion, nausea, vomiting, abdominal upset or flu-like symptoms. History of paroxysmal atrial fibrillation with one-time episode in the setting of a witnessed choking event and resolved with the Heimlich maneuver. She was on a short-course of anticoagulation but discontinued after 30-days. Denies recurrent tachy palpitations. History of obstructive sleep apnea with positive sleep study outpatient. He notes that she was drinking a lot of caffeine and wine around that time and has since lost weight. She is still snoring at night and has also noticed that she makes gasping noises at night. Endorses daytime fatigue. Denies worsening shortness of breath, lightheadedness, dizziness, near syncopal or syncopal events. Denies exertional chest discomfort, dyspnea on exertion, or activity intolerance. She fell out of her wheelchair a few months ago and found to have a right lower leg fracture. Has had right lower leg swelling since the fracture but denies worsening edema. Denies orthopnea, PND, or recent weight gain. Her notes that she has large bowel movements every three days that sometimes look dark. Denies noticing bright red blood in stool or urine. She is currently drinking a glass of wine 1-2 times per week. Medical marijuana use. Denies tobacco or illicit drug use. Family History: Father - Lung cancer; Smoker Past Medical History: 1. Paroxysmal AFIB (not on AC) in setting of witnessed choking event and no recurrence 2. History of cecal cancer s/p colectomy 3. Multiple sclerosis with paraplegia 4. Osteoporosis 5. Hypertension Allergies Allergy/AdvReac Type Severity Reaction Status Date / Time CHEPE Inhibitors Allergy Intermediate SHORTNESS Verified 05/01/23 10:13 OF BREATH Penicillins Allergy Intermediate swelling Verified 05/01/23 10:13 Prgrbbh-LRB-JtI Reductase Allergy Intermediate SHORTNESS Verified 05/01/23 10:13 Inhibitor OF BREATH [Kwqffqx-Jaw-Uqc Reductase Inhibitor] Home Medications Medication Instructions Recorded Confirmed Type cholecalciferol (vitamin D3) 25 1,000 unit PO QAM 06/30/20 01/28/25 History mcg (1,000 unit) tablet (Vitamin D3) diphenhydramine HCl 25 mg tablet 25 mg PO HS 06/30/20 01/28/25 History xgzejolw-dfon-krrp 8 mg-folic 400 1 tab PO QAM 06/30/20 01/28/25 History mcg-K 50 mcg-lutein 300 mcg tablet (Centrum Silver Women) metoprolol succinate 25 mg 25 mg PO QAM #30 tabs 08/08/22 01/28/25 Rx tablet,extended release 24 hr abaloparatide (Tymlos) 80 mcg subcut DAILY 01/28/25 01/28/25 History amlodipine 2.5 mg tablet 2.5 mg PO BID 01/28/25 01/28/25 History solifenacin 10 mg tablet 10 mg PO DAILY 01/28/25 01/28/25 History Patient History Medical History On anticoagulant therapy eliquis bid History of colon cancer diagnosed 2011--sx Wheelchair bound does need MARVIN lift to be moved from wheelchair to bed Hypertension Surgical History History of colonoscopy History of bilateral tubal ligation History of appendectomy History of colon surgery (~2011) to remove colon cancer @ [facility] History of wisdom tooth extraction History of tooth extraction Family History Other No family history of adverse response to anesthesia Social History Smoking Status: Never smoker Second Hand Exposure: No; Do You Dip or Chew Tobacco: No; Hx Alcohol Use: No Hx Substance Use: No Preferred Language: Micronesian Communication Ability: Effective Video Technician Required: No Beliefs That Will Affect Care: None Current Living Situation: Spouse Current Living Situation Comment: House with spouse Feels Safe at Home: Yes Assistive Devices: Glasses and Wheelchair Review of Systems Review of Systems: See HPI for pertinent positives. All others negative other than those noted in the HPI. CONSTITUTIONAL: No change in weight, No weakness, No fatigue, No fevers, No sweats or chills. HEENT: No visual changes, No epistaxis, No bleeding gums, No dysphagia, PULMONARY: No cough, sputum, or hemoptysis, No wheezing, No shortness of breath, and No recent change in breathing. CARDIOVASCULAR: +edema. No chest pain, No dyspnea on exertion, No palpitations, No syncope, No claudication, No calf pain. GASTROINTESTINAL: No change in appetite, No abdominal pain, No change in bowel habits, No significant heartburn, No nausea, No vomiting, No diarrhea, No constipation, No blood in stools or black tarry stools, No dysphagia. HEMATOLOGIC: +dark stools. No abnormal bleeding and No bruising. NEUROLOGICAL: No falls, No dizziness, No lightheadedness, Normal balance, No headaches, and No weakness. PSYCH: +confusion. No sleep disturbances, No mood changes. Physical Exam Physical Exam: Vital signs within normal limits as above. General: Well developed and nourished. No acute distress. Lethargic. HEENT: Normocephalic. Atraumatic. EOMI. Conjunctiva and sclera clear. NECK: Trachea midline. No thyromegaly. No carotid bruits. No JVD. Carotid upstrokes are brisk. Heart: RRR. S1 and S2 noted. Grade II/ systolic murmur auscultated along left sternal border. No rubs or gallops. PMI non displaced. Lungs: No acute respiratory distress. Clear to auscultation. No wheezes.No rhonchi. No rales. Abdomen: Normal bowel sounds. Soft. Nontender. No abdominal bruits. Extremities: Normal capillary refill. No edema. Skin: Warm and dry. NEURO: No focal deficits. PSYCH: Appropriate affect and insight. Results & Data Vital Signs (Past 12 Hours) Vital Signs Temp Pulse Pulse Resp BP Pulse Ox O2 Del Method 01/29/25 11:02 37.3 C 89 18 109/56 L 94 Room Air 01/29/25 07:23 37.2 C 90 20 117/61 95 Room Air 01/29/25 05:40 85 01/29/25 05:06 36.4 C L 01/29/25 03:05 36.6 C 81 24 142/85 H 93 Room Air Laboratory Results Cardiac Enzymes 01/28/25 01/28/25 01/29/25 Range/Units 16:27 19:24 06:40 AST 20 26 (13-39) U/L Lactate Dehydrogenase 107 (86-244) U/L Troponin I High Sens 9.9 10.3 (0-14) pg/ml CBC 01/28/25 01/28/25 01/28/25 Range/Units 16:27 16:27 16:27 WBC 6.96 7.09 (4.8-10.8) K/ul RBC 3.34 L 3.33 L (4.20-5.40) M/uL Hgb 9.9 L (12.0-16.0) g/dl Hct (37.0-47.0) % Plt Count (130-400) K/uL Neut # (Auto) (1.40-6.50) K/uL Lymph # (Auto) (1.20-3.40) K/uL [place] # (Auto) (0.11-0.59) K/uL Eos # (Auto) (0.00-0.50) K/uL Baso # (Auto) (0.00-0.20) K/uL 01/28/25 01/28/25 01/28/25 Range/Units 16:27 16:27 16:27 WBC (4.8-10.8) K/ul RBC (4.20-5.40) M/uL Hgb 9.7 L (12.0-16.0) g/dl Hct 30.3 L 30.2 L (37.0-47.0) % Plt Count 221 226 (130-400) K/uL Neut # (Auto) 5.11 (1.40-6.50) K/uL Lymph # (Auto) (1.20-3.40) K/uL [place] # (Auto) (0.11-0.59) K/uL Eos # (Auto) (0.00-0.50) K/uL Baso # (Auto) (0.00-0.20) K/uL 01/28/25 01/28/25 01/28/25 Range/Units 16:27 16:27 16:27 WBC (4.8-10.8) K/ul RBC (4.20-5.40) M/uL Hgb (12.0-16.0) g/dl Hct (37.0-47.0) % Plt Count (130-400) K/uL Neut # (Auto) 5.09 (1.40-6.50) K/uL Lymph # (Auto) 1.07 L 1.15 L (1.20-3.40) K/uL [place] # (Auto) 0.59 0.64 H (0.11-0.59) K/uL Eos # (Auto) 0.08 (0.00-0.50) K/uL Baso # (Auto) (0.00-0.20) K/uL 01/28/25 01/28/25 01/29/25 Range/Units 16:27 16:27 06:40 WBC 5.37 (4.8-10.8) K/ul RBC 2.50 L (4.20-5.40) M/uL Hgb 7.6 L (12.0-16.0) g/dl Hct 23.0 L (37.0-47.0) % Plt Count 186 (130-400) K/uL Neut # (Auto) (1.40-6.50) K/uL Lymph # (Auto) (1.20-3.40) K/uL [place] # (Auto) (0.11-0.59) K/uL Eos # (Auto) 0.09 (0.00-0.50) K/uL Baso # (Auto) 0.04 0.03 (0.00-0.20) K/uL Comprehensive Metabolic Panel 01/28/25 01/28/25 01/29/25 Range/Units 16:27 23:06 06:40 Sodium 141 143 144 (136-145) mmol/L Potassium 4.1 3.7 3.8 (3.5-5.1) mmol/L Chloride 105 109 H 113 H (98-107) mmol/L Carbon Dioxide 30 27 26 (21-32) mmol/L BUN 35 H 34 H 30 H (6-23) mg/dl Creatinine 2.14 H 2.03 H 1.84 H (0.6-1.2) mg/dl Glucose 104 H 79 67 L (70-99(Fasting)) mg/dl Calcium 13.3 H* 12.2 H* 11.1 H (8.6-10.3) mg/dl AST 20 26 (13-39) U/L ALT 34 37 (7-52) U/L Alkaline Phosphatase 242 H 188 H (34-104) U/L Total Protein 6.9 5.3 L D (6.0-8.3) gm/dl Albumin 3.4 2.5 L (3.4-5.0) gm/dl Intake and Output 01/28/25 01/29/25 01/29/25 22:59 06:59 14:59 Intake Total 1000 / 1772.917 772.917 / 1772.917 625.0 / 625.0 Output Total 375 / 375 300 / 300 Balance 625 / 1397.917 772.917 / 1397.917 325.0 / 325.0 Intake: IV 1000 / 1772.917 772.917 / 1772.917 625.0 / 625.0 Sodium Chloride 0.9% 1,000 ml @ 1000 / 1772.917 772.917 / 1772.917 625.0 / 625.0 100 mls/hr IV .Q10H [facility] Rx#: [id number] Output: Urine Amount (Catheter) 375 / 375 300 / 300 Kahn/Indwelling 375 / 375 300 / 300 Other: Other Intake Source sips Weight 58.6 kg 60.5 kg Weight Measurement Method Built in Bedscale Built in Bedscale Diagnostic Findings EKG 01/28/25 at 17:46:38 NSR with 1st degree AV block 65 bpm QTc 451 ms Medications Administered Home Medications Medication Instructions Recorded Confirmed Last Taken cholecalciferol (vitamin D3) 25 1,000 unit PO QAM 06/30/20 01/28/25 04/30/23 mcg (1,000 unit) tablet (Vitamin D3) diphenhydramine HCl 25 mg tablet 25 mg PO HS 06/30/20 01/28/25 04/30/23 measrkck-ymss-sgni 8 mg-folic 400 1 tab PO QAM 06/30/20 01/28/25 04/30/23 mcg-K 50 mcg-lutein 300 mcg tablet (Centrum Silver Women) metoprolol succinate 25 mg 25 mg PO QAM #30 tabs 08/08/22 01/28/25 04/30/23 tablet,extended release 24 hr abaloparatide (Tymlos) 80 mcg subcut DAILY 01/28/25 01/28/25 Unknown amlodipine 2.5 mg tablet 2.5 mg PO BID 01/28/25 01/28/25 Unknown solifenacin 10 mg tablet 10 mg PO DAILY 01/28/25 01/28/25 Unknown Active Medications Generic Name Dose Route Start Last Admin Trade Name Freq PRN Reason Stop Dose Admin Amlodipine Besylate 2.5 mg 01/28/25 22:08 01/29/25 11:09 Amlodipine Besylate 5 Mg Tab PO 02/27/25 22:07 2.5 mg BID ROX Administration Heparin Sodium (Porcine) 5,000 units 01/28/25 22:08 01/29/25 14:15 Heparin Sod 5,000 Unit/0.5 Ml Vial SQ 02/27/25 22:07 5,000 units Q8 ROX Administration Sodium Chloride 1,000 mls @ 100 mls/hr 01/28/25 22:08 01/29/25 10:09 Nss IV 01/31/25 22:07 125 mls/hr .Q10H ROX Administration Metoprolol Succinate 25 mg 01/29/25 09:00 01/29/25 11:09 Metoprolol Succ 25mg Ext Rel Tab PO 02/28/25 08:59 25 mg QAM ROX Administration Pantoprazole Sodium 40 mg 01/29/25 09:00 01/29/25 10:10 Pantoprazole 40 Mg Tab PO 02/01/25 21:01 40 mg BID ROX Administration PG Care Time/CCT Total # of Minutes Spent Total Time Spent with Patient: Total time spent is greater than 50% in coordination of care (as documented) at patient's floor/unit and/or counseling patient: [place] [address] IN/OBS CONSULT LVL 5,80M Patient Type New Medical Decision Making Moderate Complexity Diagnoses Second degree AV block I44.1 Paroxysmal atrial fibrillation I48.0 Urinary tract infection N39.0 Hypercalcemia E83.52 Anemia D64.9 Time Spent (min) 45
--- NOTE | 2025-01-29 16:47 | Electrocardiogram Report ---
Test Reason : Blood Pressure : */* mmHG Vent. Rate : 65 BPM Atrial Rate : 65 BPM P-R Int : 240 ms QRS Dur : 100 ms QT Int : 434 ms P-R-T Axes : 59 21 55 degrees QTcB Int : 451 ms Sinus rhythm with 1st degree A-V block Otherwise normal ECG When compared with ECG of 07-Aug-2022 09:57, WI interval has increased QT has shortened Confirmed by Timo Peng ([id number]) on 01/29/2025 4:47:06 PM Referred By: Krystal Estevez Confirmed By: Timo Peng
--- NOTE | 2025-01-30 07:08 | Hospitalist Progress Note ---
Date of Service January 30, 2025 Assessment & Plan (1) MOSHE (acute kidney injury): Plan: Patient is a 69y/o F with PMHx significant for multiple sclerosis with paraplegia, multiple sclerosing hemangiomas of lung, isolated PAF without recurrence in setting of witnessed choking event which resolved with Heimlich maneuver, HTN, senile osteoporosis, history of colon CA s/p surgery and LUIZ who presented to the ED on 01/28/25 via referral by PCP for further evaluation of abnormal outpatient labs completed earlier in the day which revealed hypercalcemia, MOSHE and anemia. OP labs, 01/28/25: serum calcium 13.7, Hgb 9.4, Cr 2.1, BUN 35, eGFR 25. Cr previously 0.9 as of 10/11/24, no prior history of renal disease. Cr improving; Cr 2.14 on presentation >> 1.84 on 01/29 >> 1.57 today. Appreciate nephro consult. Suspect prerenal etiology in setting of recurrent UTI, poor baseline p.o. intake and hypercalcemia. S/p 4L NSS so far >> now hyperNa, hyperCl on labs today. D/w Dr. Parra who recommended transition to D5w + 1/2NSS w/ 20mEq @ 100ccc/hr for now. Repeat BMP ordered for 3PM. (2) Hypercalcemia: Plan: Serum Ca previously 10.5 as of 10/11/24. Ca improving; 13.3 on presentation >> 11.1 on 01/29 >> 9.9 today. Ionized calcium 1.74, 25-OH vit D 70.8, intact PTH and TSH WNL. Urine random Cr 57.5, urine Ca pending. SPEP, UPEP pending as part of MM workup. PTHrP pending. Again appreciate nephro consult. No need of Zometa and/or calcitonin at this time. Holding Tymlos injection as it can cause hypercalcemia, hypercalciuria. Hold off on multivitamin and vitamin D supplementation. Suspect main trigger being volume depletion which was then worsened by vitamin D supplementation, Tymlos injection. (3) Anemia: Plan: Hgb previously 13.8 as of 10/09/24. 9.9 on presentation >> 7.6 on 01/29 >> 7.7 today. Likely hemodilutional component contributing ISO above. Iron, TIBC, transferrin, ferritin and TSAT% WNL. Peripheral smear pending. Reticulocyte ct 2.14 but again still with no obvious s/sx of bleeding. LDH WNL so doubt hemolytic but haptoglobin still pending for completion. Continue to monitor, no indication to transfuse at this time. (4) UTI (urinary tract infection): Plan: History of neurogenic bladder. Now with recurrent UTIs. Has completed 2 rounds of antibiotics in the last month including Macrobid and Bactrim. Previous OP urine cultures growing Enterococcus species with susceptibility to ampicillin, nitrofurantoin and vancomycin. Resistant to tetracycline. Patient with allergy to penicillins, reportedly causes swelling. Continued to have ongoing sx including cloudy urine, confusion. Repeat UA in ED with 2+ protein, 3+ LE, >50 WBC and 3+ bacteria. Started on IV daptomycin on admission given history of penicillin allergy and MOSHE. CTAP with nonobstructing right renal calculus. Continue IV daptomycin pending urine culture results. 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 (5) Acute metabolic encephalopathy: Plan: A&O only to self. At baseline patient is A&Ox3 per . Arousable with tactile and verbal stimuli but hard to keep awake, quickly falls asleep unless continuously aroused. Suspect multifactorial etiology ISO above. (6) Multiple sclerosis: Plan: Wheelchair-bound at baseline, paraplegic. Lives at home with , has caregivers available Friday-Friday. Requires assistance with feeds. BUE weakness progressing per . Appreciate MANAGER RECRUITING eval, re: patient coughing with consecutive straw sips of thin liquids per d/w RN yesterday. MANAGER RECRUITING recommending pureed diet, thin liquids with small straw sips OK. Aspiration precautions: feed only when awake and alert, upright 90 degrees, requires assistance with all feeds >> communicated with RN. Meds to be crushed in puree. (7) Mobitz type 2 second degree AV block: Plan: Had transient 10 to 20-second episode of second-degree AV block type 2 overnight 01/28-/01/29. No recurrence, remains in NSR on telemetry per d/w RN. Repeat EKG on 01/29: sinus rhythm with 1st degree AVB. Cards evaluated patient yesterday. [place] transient block 2/2 untreated JOSR, would recommend OP sleep medicine eval. Recommend Jerrodo patch on DC to assess for high-degree AVB and OP follow-up with cards. (8) Hypothermia: Plan: Noted overnight 01/28-01/29, Mati hugger subsequently applied. Temperature improved. Lactate, procalcitonin negative. Unclear etiology at this time. MS lesions in the hypothalamus and related pathways can result in impaired thermoregulation. (9) Abnormal CT of the abdomen: Plan: CTAP on admission incidentally noted apparent mild wall thickening of the proximal duodenum. Could be 2/2 PUD or other inflammation. No recent GI complaints. Empirically started on po PPI BID on 01/29/25. (10) Hypertension: Plan: Continue SLOT KEY PERSON Toprol-XL. Remains hypotensive this AM so will continue to hold Norvasc for now, resume as able. DVT Prophylaxis: SCDs/TEDs only for now given anemia Code Status: FULL CODE PCP: Judd Wise, Disposition: DC plans uncertain at this time Patient seen in collaboration with Dr. Florian. Please see addendum. I spent a total of 62 minutes coordinating, documenting, and providing care for this patient excluding time spent in the performance of separately billed services or time spent by another provider/QHP. This included personally reviewing all current laboratories and imaging studies, medical reconciliation, outpatient chart review and discussion with specialists. This chart was completed in part utilizing Speech Voice Recognition Software. Grammatical errors, random word insertions, pronoun errors, and incomplete sentences are an occasional consequence of this system due to software limitations, ambient noise, and hardware issues. Any formal questions or concerns about the content, text, or information contained within the body of this dictation should be directly addressed to the provider for clarification. Admission and Anticipated Discharge Date Admission Date: January 28, 2025 Supervising Physician Co-Signing Physician Notes Patient seen and examined Agree with findings as detailed by Yarelis Samaniego PA-C Subjective Patient seen and examined in room E218-1. , Valdo, again at bedside. Patient still with minimal po intake. MANAGER RECRUITING to evaluate; patient demonstrated coughing with consecutive straw sips of thin liquids per d/w RN yesterday. Remains in NSR on telemetry. Patient mostly A&O to self. Appeared somewhat uncomfortable during eval. States "in my legs" when asked directly if she had any pain. Unable to provide any further history. Requiring repetitive verbal ques and tactile stimulation to keep eyes open. Review of Systems Review of Systems: Unable to answer ROS questions appropriately 2/2 current mentation level. Physical Exam Physical Exam: General/Neuro: Thin F, A&O only to self, lethargic, waking up to answer direct questions but requires constant verbal and tactile stimulation to stay awake, chronically ill-appearing, requires total care to move/reposition, appears somewhat uncomfortable, laying on R side, at bedside HEENT: Dry mucous membranes, cracked lips Respiratory: Normal respiratory effort, CTAB but limited exam as pt poor with following commands Cardiovascular: Regular rate, rhythm, normal peripheral pulses, 1+ BLE edema (c ompression stockings in place) Abdomen/GI: Normal bowel sounds, soft, nontender to palpation in all quadrants Extremities/MSK: No cyanosis or clubbing, + chronic BLE and BUE (R>L) weakness, unable to ambulate, wheelchair bound, requires assistance with feeds Results & Data Results & Data Vital Signs (Past 12 Hours) Vital Signs Temp Pulse Pulse Resp BP Pulse Ox O2 Del Method 01/30/25 04:00 36.4 C L 86 20 149/70 H 95 Room Air 01/30/25 00:40 36.4 C L 86 17 144/69 H 93 Room Air 01/29/25 21:42 81 01/29/25 20:41 36.5 C 84 19 124/67 92 Room Air Laboratory Results Short CBC 01/30/25 Range/Units 08:54 WBC 6.50 (4.8-10.8) K/ul Hgb 7.7 L (12.0-16.0) g/dl Hct 23.4 L (37.0-47.0) % Plt Count 181 (130-400) K/uL BMP 01/30/25 08:54 Sodium 148 H Potassium 3.5 Chloride 120 H Carbon Dioxide 20 L BUN 24 H Creatinine 1.57 H Glucose 61 L Calcium 9.9 Liver Function 01/30/25 Range/Units 08:54 Total Bilirubin 0.3 (0.2-1.0) mg/dl AST 33 (13-39) U/L ALT 46 (7-52) U/L Alkaline Phosphatase 227 H (34-104) U/L Albumin 2.6 L (3.4-5.0) gm/dl
[2025-01-30] MEDS: OXYBUTYNIN CHLORIDE XL 5 MG TABCR PO SCH (08:46)
[2025-01-30 09:18] LABS: Hematocrit (blood only) 23.4 % (37.0-47.0); Hemoglobin 7.7 g/dl (12.0-16.0); Immature Granulocytes # (auto) 0.27 K/uL (0.01-0.20); Immature Granulocytes % (auto) 4.2 %; Mean Corpuscular Hemoglobin 30.3 pg (25.0-34.0); Mean Corpuscular Volume 92.1 fL (80.0-100.0); Platelet Count 181 K/uL (130-400); RDW Standard Deviation 55.0 fL (36.4-46.3); Red Blood Count 2.54 M/uL (4.20-5.40); White Blood Count 6.50 K/ul (4.8-10.8)
[2025-01-30 09:32] LABS: Alanine Aminotransferase 46.0 U/L (7-52); Albumin Globulin Ratio 0.9 (0.9-2); Albumin Level 2.6 gm/dl (3.4-5.0); Alkaline Phosphatase 227.0 U/L (34-104); Anion Gap 8.0 (3-11); Bilirubin,Total 0.3 mg/dl (0.2-1.0); Blood Urea Nitrogen 24.0 mg/dl (6-23); Calcium 9.9 mg/dl (8.6-10.3); Carbon Dioxide 20.0 mmol/L (21-32); Chloride 120.0 mmol/L (98-107); Creatinine Clr Calc Pharmacy 29.6 ml/min; Globulin 2.8 gm/dl (2.5-4.0); Glucose 61.0 mg/dl (70-99(Fasting)); Potassium 3.5 mmol/L (3.5-5.1); Sodium 148.0 mmol/L (136-145); Total Protein 5.4 gm/dl (6.0-8.3)
[2025-01-30 09:50] LABS: Polychromasia 1+
[2025-01-30 09:53] LABS: Ferritin 169.0 ng/ml (8-388)
[2025-01-30] MEDS: D5W AND 1/2NSS + 20MEQ KCL 20 MEQ/1,000 ML BAG IV SCH (11:16)
--- NOTE | 2025-01-30 12:49 | Nephrology Progress Note ---
Date of Service January 30, 2025 Assessment & Plan Admission and Anticipated Discharge Date Admission Date: January 28, 2025 Subjective Assessment & Plan (1) MOSHE (acute kidney injury): Appears pre renal type in the setting of recurrent UTI, very poor oral Intake and now Hypercalcemia. this Can make pre renal Situation lot worse. Creat normal at baseline. was 2.14 Adx and now down to 1.57 and increasing urine output. also ca coming down quick so good signs. Will treat UTI. Daily renal panel and CBC is enough. expect further improvement. (2) Hypercalcemia: ca 13.7 but in less than 48 hrs time down to 9. NO need of other treatments. Na is 148 with high co20--d/c NS. Will use d5w with 20 meq kcl at 100 ml/hr as she is not eating or drinking. Check renal Panel again in AM. hold off Tymlos Injection as it can cause hypercalcemia. hold off Multivitamin and Vit D ( note level high at 70). pending Myeloma workup. tymlos can cause Hypercalciuria so being checked. But had normal ca in even though has been on this injection for about 9 months. the main trigger was the volume depletion and then worsened by Vit D and tymlos. PTH was not fully suppressed though. Will need to repeat again. No need of Zometa and /or Calcitonin. (3) Urinary tract infection: Now on Daptomycin. Continue same S--making lot of urine. NO new symptoms. ROS--Unable to obtain. 12 Systems reviewed and otherwise negative Physical Exam Constitutional: Chronically ill. Sleepy and weak. unable to give any history Respiratory: normal respiratory effort, lungs clear to auscultation Cardiovascular: Rate/Rhythm: regular rate and regular rhythm Vessels: normal peripheral pulses Extremities: + edema (+1 edema BLE ) Gastrointestinal (Abdomen): Percussion/Palpation: abdomen soft; abdomen nontender Skin: no rashes, warm and dry Neurologic: Generalized weakness, history of MS Psychiatric: Unable to exam. Results & Data Vital Signs (Past 12 Hours) Vital Signs Temp Pulse Pulse Resp BP Pulse Ox O2 Del Method 01/30/25 11:35 36.2 C L 74 18 172/83 H 90 Room Air 01/30/25 07:41 36.8 C 85 18 128/67 93 Room Air 01/30/25 05:38 79 01/30/25 04:00 36.4 C L 86 20 149/70 H 95 Room Air
[2025-01-30 15:29] LABS: Anion Gap 7.0 (3-11); Blood Urea Nitrogen 24.0 mg/dl (6-23); Calcium 9.7 mg/dl (8.6-10.3); Carbon Dioxide 20.0 mmol/L (21-32); Chloride 117.0 mmol/L (98-107); Creatinine Clr Calc Pharmacy 30.1 ml/min; Glucose 195.0 mg/dl (70-99(Fasting)); Potassium 3.6 mmol/L (3.5-5.1); Sodium 144.0 mmol/L (136-145)
[2025-01-30] MEDS: DAPTOmycin 350 MG in SYRINGE 0 ML IV SCH (20:05)
[2025-01-30] MEDS: ACETAMINOPHEN 325 MG TAB PO PRN (20:07)
[2025-01-31] MEDS ORDERED: POLYETHYLENE (MIRALAX) 17 GM PACK PO PRN (00:20)
[2025-01-31 07:24] LABS: Hematocrit (blood only) 24.7 % (37.0-47.0); Hemoglobin 7.9 g/dl (12.0-16.0); Mean Corpuscular Hemoglobin 29.3 pg (25.0-34.0); Mean Corpuscular Volume 91.5 fL (80.0-100.0); Platelet Count 200 K/uL (130-400); RDW Standard Deviation 53.3 fL (36.4-46.3); Red Blood Count 2.70 M/uL (4.20-5.40); White Blood Count 9.53 K/ul (4.8-10.8)
[2025-01-31 07:46] LABS: Alanine Aminotransferase 39.0 U/L (7-52); Albumin Globulin Ratio 1.0 (0.9-2); Albumin Level 2.7 gm/dl (3.4-5.0); Alkaline Phosphatase 234.0 U/L (34-104); Anion Gap 8.0 (3-11); Bilirubin,Total 0.3 mg/dl (0.2-1.0); Blood Urea Nitrogen 18.0 mg/dl (6-23); Calcium 9.3 mg/dl (8.6-10.3); Carbon Dioxide 20.0 mmol/L (21-32); Chloride 114.0 mmol/L (98-107); Creatinine Clr Calc Pharmacy 36.0 ml/min; Globulin 2.8 gm/dl (2.5-4.0); Glucose 152.0 mg/dl (70-99(Fasting)); Potassium 3.6 mmol/L (3.5-5.1); Sodium 142.0 mmol/L (136-145); Total Protein 5.5 gm/dl (6.0-8.3)
--- NOTE | 2025-01-31 14:46 | Hospitalist Progress Note ---
Date of Service January 31, 2025 Assessment & Plan (1) MOSHE (acute kidney injury): Plan: Patient is a 69y/o F with PMHx significant for multiple sclerosis with paraplegia, multiple sclerosing hemangiomas of lung, isolated PAF without recurrence in setting of witnessed choking event which resolved with Heimlich maneuver, HTN, senile osteoporosis, history of colon CA s/p surgery and LUIZ who presented to the ED on 01/28/25 via referral by PCP for further evaluation of abnormal outpatient labs completed earlier in the day which revealed hypercalcemia, MOSHE and anemia. OP labs, 01/28/25: serum calcium 13.7, Hgb 9.4, Cr 2.1, BUN 35, eGFR 25. Cr previously 0.9 as of 10/11/24, no prior history of renal disease. Cr improving; Cr 2.14 on presentation >> 1.84 on 01/29 >> 1.57 > 1.2 today Nephro consulted - notes reviewed Suspect prerenal etiology in setting of recurrent UTI, poor baseline p.o. intake and hypercalcemia. S/p 4L NSS >> then developed hyperNa, hyperCl Nephro recommended transition to D5w + 1/2NSS w/ 20mEq @ 100ccc/hr Na+ 142, K+ 3.6, Chloride 114 (2) Hypercalcemia: Plan: Serum Ca previously 10.5 as of 10/11/24. Ca improving; 13.3 on presentation >> 11.1 on 01/29 >> 9.9 > 9.3 today. Ionized calcium 1.74, 25-OH vit D 70.8, intact PTH and TSH WNL. Urine random Cr 57.5, urine Ca pending. SPEP, UPEP pending as part of MM workup. PTHrP pending. No need of Zometa and/or calcitonin at this time. Holding Tymlos injection as it can cause hypercalcemia, hypercalciuria. Hold off on multivitamin and vitamin D supplementation. Suspect main trigger being volume depletion which was then worsened by vitamin D supplementation, Tymlos injection. (3) Anemia: Plan: Hgb previously 13.8 as of 10/09/24. 9.9 on presentation >> 7.6 on 01/29 >> 7.7 > 7.9 today. Likely hemodilutional component contributing given IVF received Iron, TIBC, transferrin, ferritin and TSAT% WNL. Peripheral smear essentially unremarkable - possible iron deficiency given mildly low transferrin %, will discuss iron replacement with nephro Reticulocyte ct 2.14 but again still with no obvious s/sx of bleeding. LDH WNL so doubt hemolytic but haptoglobin still pending for completion. Continue to monitor, no indication to transfuse at this time. (4) UTI (urinary tract infection): Plan: History of neurogenic bladder. Now with recurrent UTIs. Has completed 2 rounds of antibiotics in the last month including Macrobid and Bactrim. Previous OP urine cultures growing Enterococcus species with susceptibility to ampicillin, nitrofurantoin and vancomycin. Resistant to tetracycline. Patient with allergy to penicillins, unknown reaction Continued to have ongoing sx including cloudy urine, confusion. Repeat UA in ED with 2+ protein, 3+ LE, >50 WBC and 3+ bacteria. Started on IV daptomycin on admission given history of penicillin allergy and MOSHE. CTAP with nonobstructing right renal calculus. 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 Arousable with tactile and verbal stimuli but hard to keep awake, quickly falls asleep unless continuously aroused. Suspect multifactorial etiology ISO above. (6) Multiple sclerosis: Plan: Wheelchair-bound at baseline, paraplegic. Lives at home with , has caregivers available Friday-Friday. Requires assistance with feeds. BUE weakness progressing per . Appreciate KILN PUSHER benjamin, re: patient coughing with consecutive straw sips of thin liquids per RN KILN PUSHER recommending pureed diet, thin liquids with small straw sips OK. Aspiration precautions: feed only when awake and alert, upright 90 degrees, requires assistance with all feeds Meds to be crushed in puree. Will need speech therapy services at d/c - coordinating, referral made and patient accepted #Stage 3 Sacral Wound, POA Wound care nurse consulted, note reviewed (7) Mobitz type 2 second degree AV block: Plan: Had transient 10 to 20-second episode of second-degree AV block type 2 overnight 01/28-/01/29. No recurrence, remains in NSR on telemetry Repeat EKG on 01/29: sinus rhythm with 1st degree AVB. Cardiology consulted - note reviewed [place] transient block 2/2 untreated JOSR, would recommend OP sleep medicine eval. Recommend Zio patch on DC to assess for high-degree AVB and OP follow-up with cards. (8) Hypothermia: Plan: Noted overnight 01/28-01/29, Mati hugger subsequently applied. Temperature improved. Lactate, procalcitonin negative. Unclear etiology at this time. MS lesions in the hypothalamus and related pathways can result in impaired thermoregulation. (9) Abnormal CT of the abdomen: Plan: CTAP on admission incidentally noted apparent mild wall thickening of the proximal duodenum. Could be 2/2 PUD or other inflammation. No recent GI complaints. Empirically started on po PPI BID on 01/29/25. (10) Hypertension: Plan: Continue CH[employer]LE [employer]ACHINE Toprol-XL. Norvasc previosuly on hold due to hypotension, BP now improved, will resume Norvasc DVT Prophylaxis: SCDs/TEDs only for now given anemia Code Status: FULL CODE PCP: Judd Wise, DO Disposition: anticipate DC home with and home health/ previous caregivers Patient seen in collaboration with Dr. Florian. I spent a total of 35 minutes coordinating, documenting, and providing care for this patient excluding time spent in the performance of separately billed services. This included personally reviewing all current laboratories and imaging studies, medication reconciliation, outpatient chart review, and discussion with specialists. Admission and Anticipated Discharge Date Admission Date: January 28, 2025 Subjective Follow-up for hypercalcemia, MOSHE, UTI. Patient seen and examined. Resting in bed. Sleeping but arouses easily to verbal stimuli. visiting at bedside. Patient offers no complaints, appetite seems to be slightly improved from yesterday. Physical Exam Constitutional: no acute distress Chronically ill-appearing Respiratory: no respiratory distress Auscultation: + diminished lung sounds Cardiovascular: Rate/Rhythm: regular rate and regular rhythm Vessels: normal peripheral pulses Extremities: + edema (+2 edema BLE) Skin: no rashes, warm and dry Neurologic: hx MS Psychiatric: Orientation: oriented to person and oriented to place Affect: + flat affect sleeping, arouses easily to verbal stimuli Results & Data Results & Data Vital Signs (Past 12 Hours) Vital Signs Temp Pulse Pulse Resp BP Pulse Ox O2 Del Method 01/31/25 13:38 82 01/31/25 11:40 36.3 C L 86 18 156/75 H 95 Room Air 01/31/25 07:46 36.4 C L 80 18 143/72 H 95 Room Air 01/31/25 07:46 83 01/31/25 04:00 36.6 C 86 19 141/65 H 95 Room Air Laboratory Results Short CBC 01/31/25 Range/Units 06:36 WBC 9.53 (4.8-10.8) K/ul Hgb 7.9 L (12.0-16.0) g/dl Hct 24.7 L (37.0-47.0) % Plt Count 200 (130-400) K/uL BMP 01/30/25 01/31/25 15:00 06:36 Sodium 144 142 Potassium 3.6 3.6 Chloride 117 H 114 H Carbon Dioxide 20 L 20 L BUN 24 H 18 Creatinine 1.54 H 1.29 H Glucose 195 H 152 H Calcium 9.7 9.3 Liver Function 01/31/25 Range/Units 06:36 Total Bilirubin 0.3 (0.2-1.0) mg/dl AST 23 (13-39) U/L ALT 39 (7-52) U/L Alkaline Phosphatase 234 H (34-104) U/L Albumin 2.7 L (3.4-5.0) gm/dl
--- NOTE | 2025-01-31 15:31 | Infectious Disease Consult ---
Date of Service January 31, 2025 Telehealth Information I performed this visit using a real-time telehealth connection between my location and the patients location ([facility]). After connecting through interactive tele-video, patient was identified by name and date of and/or wristband check.Patient (or authorized healthcare inbound sales representative) was informed that this was a telemedicine visit and it was being conducted confidentially over secure lines. My office door was closed and no one else was present in the room with me.Patient (or authorized healthcare inbound sales representative) provided consent to proceed with the visit, expressed an understanding of privacy and security of the telemedicine visit, and gave permission to have a hospital inbound sales representative in the room in order to assist with the visit and to conduct portions of the visit, as needed. I informed the patient (or authorized healthcare inbound sales representative) that I reviewed their record and presented the opportunity for them to ask any questions regarding the visit today. The patient agreed to participate. Assessment & Plan (1) Abnormal CT of the abdomen: (2) MOSHE (acute kidney injury): (3) Urinary tract infection: (4) Confusion: Plan Assessment: 69 yo F with PMHx of MS, cecal cancer s/p colectomy, osteoporosis, HTN, isolated episode of atrial fibrillation without recurrence, no longer on anticoagulation who presented to [facility] on 01/28/2025 for hypercalcemia, MOSHE, anemia. Pt has been being treated for Enterococcus UTI over the past 1 month. Discussed with patient regarding persistent UTI. Firstly, bactrim does not work against Enterococcus. Secondly, macrobid PO may fail in patient's with kidney dysfunction. Thus, it is very likely that Enterococcus was just not treated well. Plan: 1. UTI - Recommend continuing Daptomycin IV and okay to switch to Linezolid 500 mg PO BID on discharge to complete treatment in 10 days. - Recommend pt f/u with Urology for urinary incontinence. - we will sign off, no need for ID clinic appointment, please call with issues, concerns, or questions with the ID physician exceptional student education aide for teledoc services. History of Present Illness History of Present Illness Reason for consult: recurrent enterococcus UTI 69 yo F with PMHx of MS, cecal cancer s/p colectomy, osteoporosis, HTN, isolated episode of atrial fibrillation without recurrence, no longer on anticoagulation who presented to [facility] on 01/28/2025 for hypercalcemia, MOSHE, anemia. Pt has been being treated for Enterococcus UTI over the past 1 month. Per notes and chart review, pt had a urine culture from 12/27 grew Enterococcus and patient completed a course of Bactrim. stated that urine remained cloudy and patient was mildly confused therefore urine was repeated on 01/12 still showing Enterococcus. Pt was then placed on a course of Macrobid which she completed last week. reports ongoing cloudy urine and mild confusion and therefore urine was repeated yesterday and patient was evaluated in PCP office today. Labs were obtained showing calcium 13.7, creatinine 2.1, Hgb 9.4. Patient noted to have normal labs in October. Patient offers no other complaints at this time. In the ED, she is hemodynamically stable. Labs show Hgb 9.9, creatinine 2.1, calcium 13.3, alk phos 242. UA suggestive of UTI. Patient was given IVF. ID consulted for evaluation and management. Allergies Allergy/AdvReac Type Severity Reaction Status Date / Time CHEPE Inhibitors Allergy Intermediate SHORTNESS Verified 05/01/23 10:13 OF BREATH Penicillins Allergy Intermediate swelling Verified 05/01/23 10:13 Sfyrzuk-CUM-VwZ Reductase Allergy Intermediate SHORTNESS Verified 05/01/23 10:13 Inhibitor OF BREATH [Mradmbv-Cqz-Nyg Reductase Inhibitor] Home Medications Medication Instructions Recorded Confirmed Type cholecalciferol (vitamin D3) 25 1,000 unit PO QAM 06/30/20 01/28/25 History mcg (1,000 unit) tablet (Vitamin D3) diphenhydramine HCl 25 mg tablet 25 mg PO HS 06/30/20 01/28/25 History lpvhheqx-zpch-izxs 8 mg-folic 400 1 tab PO QAM 06/30/20 01/28/25 History mcg-K 50 mcg-lutein 300 mcg tablet (Centrum Silver Women) metoprolol succinate 25 mg 25 mg PO QAM #30 tabs 08/08/22 01/28/25 Rx tablet,extended release 24 hr abaloparatide (Tymlos) 80 mcg subcut DAILY 01/28/25 01/28/25 History amlodipine 2.5 mg tablet 2.5 mg PO BID 01/28/25 01/28/25 History solifenacin 10 mg tablet 10 mg PO DAILY 01/28/25 01/28/25 History Patient History Medical History On anticoagulant therapy eliquis bid History of colon cancer diagnosed 2011--sx Wheelchair bound does need MARVIN lift to be moved from wheelchair to bed Hypertension Surgical History History of colonoscopy History of bilateral tubal ligation History of appendectomy History of colon surgery (~2011) to [place] [facility] [place] History of wisdom tooth extraction History of tooth extraction Family History Other No family history of adverse response to anesthesia Social History (Reviewed 01/29/25 @ 11: by Calderon Parra MD) Smoking Status: Never smoker Second Hand Exposure: No; Do You Dip or Chew Tobacco: No; Hx Alcohol Use: No Hx Substance Use: No Preferred Language: Korean Communication Ability: Effective Financial Center Manager Required: No Beliefs That Will Affect Care: None Current Living Situation: Spouse Current Living Situation Comment: House with spouse Feels Safe at Home: Yes Assistive Devices: Mechanical Lift, Scooter/Electric Scooter, Wheelchair and Other Review of Systems all ROS reviewed Physical Exam NA Results & Data Vital Signs (Past 12 Hours) Vital Signs Temp Pulse Pulse Resp BP Pulse Ox O2 Del Method 01/31/25 13:38 82 01/31/25 11:40 36.3 C L 86 18 156/75 H 95 Room Air 01/31/25 07:46 36.4 C L 80 18 143/72 H 95 Room Air 01/31/25 07:46 83 01/31/25 04:00 36.6 C 86 19 141/65 H 95 Room Air Laboratory Results Urine culture on 01/28/2025 Urine Culture Final 01/31/25-1359 Organism 1 Enterococcus faecalis [place] Count >100,000 CFU/ml Sens Sensitivities to Follow E faecalis RX M.I.C. --- --------- Ampicillin S <=2 Ciprofloxacin S <=1 Daptomycin S <=0.5 Gent Synergy S <=500 Levofloxacin S <=1 Nitrofurantoin S <=32 Penicillin S 2 Strep Synergy S <=1000 Tetracycline R >8 Vancomycin S 0.5 Enterococcus faecalis: Positive GURPREET 38 Streptomycin Synergy Screen S Gentamicin Synergy Screen S S = SENSITIVE I = INTERMEDIATE R = RESISTANT 01/28/25 18:00 Urine Culture - Final Urine,Straight Cath Enterococcus faecalis 01/31/25 06:36 WBC 9.53 RBC 2.70 L Hgb 7.9 L Hct 24.7 L MCV 91.5 MCH 29.3 MCHC 32.0 RDW Std Deviation 53.3 H RDW Coeff of Nadira 15.9 H Plt Count 200 MPV 10.9 Absolute Nucleated RBC 0.02 Nucleated RBC % (auto) 0.2 Sodium 142 Potassium 3.6 Chloride 114 H Carbon Dioxide 20 L Anion Gap 8 BUN 18 Creatinine 1.29 H Est Cr Clr Drug Dosing 36.0 eGFR 44.37 BUN/Creatinine Ratio 14.0 Glucose 152 H Calcium 9.3 Total Bilirubin 0.3 AST 23 ALT 39 Alkaline Phosphatase 234 H Total Protein 5.5 L Albumin 2.7 L Globulin 2.8 Albumin/Globulin Ratio 1.[address] abd/pelvis on 01/28/2025 Impression: 1. Small right pleural effusion and bilateral lung base atelectasis 2. Cholelithiasis without evidence of acute cholecystitis 3. Nonobstructing right renal calculus 4. Apparent mild wall thickening of the proximal duodenum, which could be due to peptic ulcer disease or other inflammation Medications Administered Home Medications Medication Instructions Recorded Confirmed Last Taken cholecalciferol (vitamin D3) 25 1,000 unit PO QAM 06/30/20 01/28/25 04/30/23 mcg (1,000 unit) tablet (Vitamin D3) diphenhydramine HCl 25 mg tablet 25 mg PO HS 06/30/20 01/28/25 04/30/23 hidmekkj-krqv-kpuw 8 mg-folic 400 1 tab PO QAM 06/30/20 01/28/25 04/30/23 mcg-K 50 mcg-lutein 300 mcg tablet (Centrum Silver Women) metoprolol succinate 25 mg 25 mg PO QAM #30 tabs 08/08/22 01/28/25 04/30/23 tablet,extended release 24 hr abaloparatide (Tymlos) 80 mcg subcut DAILY 01/28/25 01/28/25 Unknown amlodipine 2.5 mg tablet 2.5 mg PO BID 01/28/25 01/28/25 Unknown solifenacin 10 mg tablet 10 mg PO DAILY 01/28/25 01/28/25 Unknown Active Medications Generic Name Dose Route Start Last Admin Trade Name Renee PRN Reason Stop Dose Admin Acetaminophen 650 mg 01/28/25 22:08 01/30/25 20:07 Acetaminophen 325 Mg Tab PO 02/27/25 22:07 650 mg Q4H PRN Administration Pain or Fever Amlodipine Besylate 2.5 mg 01/28/25 22:08 01/29/25 11:09 Amlodipine Besylate 5 Mg Tab PO 02/27/25 22:07 2.5 mg BID ROX Administration Ferrous Sulfate 325 mg 01/31/25 17:00 01/31/25 16:45 Ferrous Sulfate 325 Mg Tab PO 03/02/25 16:59 325 mg BIDM ROX Administration Heparin Sodium (Porcine) 5,000 units 01/28/25 22:08 01/31/25 14:06 Heparin Sod 5,000 Unit/0.5 Ml Vial SQ 02/27/25 22:07 5,000 units Q8 ROX Administration Potassium Chloride/Dextrose/Sod Cl 20 meq in 1,000 mls @ 100 mls/hr 01/30/25 10:45 01/31/25 16:45 D5w And 1/2nss + 20meq Kcl IV 02/02/25 10:44 100 mls/hr .Q10H ROX Administration Metoprolol Succinate 25 mg 01/29/25 09:00 01/31/25 08:09 Metoprolol Succ 25mg Ext Rel Tab PO 02/28/25 08:59 25 mg QAM ROX Administration Oxybutynin Chloride 5 mg 01/30/25 09:00 01/31/25 08:09 Oxybutynin Chloride Xl 5 Mg Tabcr PO 03/01/25 08:59 5 mg DAILY ROX Administration Pantoprazole Sodium 40 mg 01/29/25 09:00 01/31/25 08:09 Pantoprazole 40 Mg Tab PO 02/01/25 21:01 40 mg BID ROX Administration
--- NOTE | 2025-01-31 15:38 | Nephrology Progress Note ---
Date of Service January 31, 2025 Assessment & Plan (1) MOSHE (acute kidney injury): Plan: Appears pre renal type in the setting of recurrent UTI, very poor oral Intake and now Hypercalcemia. this Can make pre renal Situation lot worse. Creat normal at baseline. was 2.14 Adx and now down to 1.3 and increasing urine output. also ca coming down quick so good signs. -cont to treat UTI Daily renal panel and CBC is enough. expect further improvement. will sign off NEPH S/O note: DX: PRERENAL MOSHE stage 2 (baseline about 1.0 creat), due in part to hypercalcemia, resolving hypercalcemia, resolved RX: -contniue increased amlodipine -consider increasing metoprolol if HR remains above >>hold off Tymlos Injection for now as it can cause hypercalcemia. >>hold off Multivitamin and Vit D ( note level high at 70). OTHER CARE -encourage aggressive fluid intake > aim for 64-80 oz daily -under 2 gm daily sodium diet -bmp 2X weekly to be ordered by PCP -neph to f/u pending calciuria status and myeloma w/u as OP F/U - w/ dr Diaz o r myself in 2 wks (2) Hypercalcemia: Plan: ca 13.7 but in less than 24 hrs time down to 11.1. NO need for other treatments. Will continue NS at 125 ml /hr. Check renal Panel again in AM. >>pending Myeloma workup can be followed as OP tymlos can cause Hypercalciuria so being checked (result pending) and hypercalcemia But had normal ca in 10/2024 even though has been on this injection for about 9 months. the main trigger was the volume depletion and then worsened by Vit D and tymlos. PTH was not fully suppressed though need to repeat again. No need of Zometa and /or Calcitonin. (3) Iron deficiency anemia: Plan: t satn 12% on 01/28; hgb dropping, not transfusion range >reasonable to do an iron load > but would start w/ po given that she's on abtx at this time in case of gram neg infection (4) Urinary tract infection: Plan: Now on Daptomicin. Conitnue same Admission and Anticipated Discharge Date Admission Date: January 28, 2025 Results & Data Vital Signs (Past 12 Hours) Vital Signs Temp Pulse Pulse Resp BP Pulse Ox O2 Del Method 01/31/25 13:38 82 01/31/25 11:40 36.3 C L 86 18 156/75 H 95 Room Air 01/31/25 07:46 36.4 C L 80 18 143/72 H 95 Room Air 01/31/25 07:46 83 01/31/25 04:00 36.6 C 86 19 141/65 H 95 Room Air Laboratory Results 01/31/25 06:36 01/31/25 06:36
[2025-01-31] MEDS: FERROUS SULFATE 325 MG TAB PO SCH (16:45)
--- NOTE | 2025-01-31 17:10 | Electrocardiogram Report ---
Test Reason : Blood Pressure : */* mmHG Vent. Rate : 83 BPM Atrial Rate : 83 BPM P-R Int : 224 ms QRS Dur : 90 ms QT Int : 366 ms P-R-T Axes : 57 24 61 degrees QTcB Int : 430 ms Sinus rhythm with 1st degree A-V block Otherwise normal ECG When compared with ECG of 28-Jan-2025 17:46, No significant change was found Confirmed by Timo Peng ([id number] on 01/31/2025 5:10:46 PM Referred By: Krystal Estevez Confirmed By: Timo Peng
[2025-02-01] MEDS: DAPTOmycin 400 MG in SYRINGE 0 ML IV SCH
[2025-02-01] MEDS: FUROSEMIDE INJ 20 MG/2 ML VIAL IV ONE (03:15)
[2025-02-01 07:23] LABS: Hematocrit (blood only) 25.3 % (37.0-47.0); Hemoglobin 8.8 g/dl (12.0-16.0); Mean Corpuscular Hemoglobin 30.6 pg (25.0-34.0); Mean Corpuscular Volume 87.8 fL (80.0-100.0); Platelet Count 221 K/uL (130-400); RDW Standard Deviation 51.0 fL (36.4-46.3); Red Blood Count 2.88 M/uL (4.20-5.40); White Blood Count 10.29 K/ul (4.8-10.8)
[2025-02-01 07:39] LABS: Anion Gap 8.0 (3-11); Blood Urea Nitrogen 15.0 mg/dl (6-23); Calcium 9.2 mg/dl (8.6-10.3); Carbon Dioxide 21.0 mmol/L (21-32); Chloride 111.0 mmol/L (98-107); Creatinine Clr Calc Pharmacy 35.2 ml/min; Glucose 96.0 mg/dl (70-99(Fasting)); Potassium 3.7 mmol/L (3.5-5.1); Sodium 140.0 mmol/L (136-145)
[2025-02-01 11:53] VITALS: RESP 20
[2025-02-01 11:54] VITALS: TEMP 97.9; O2SAT 96
[2025-02-01 12:46] VITALS: BP 137/58; PULSE 70
--- NOTE | 2025-02-01 15:49 | Discharge Summary ---
Date of Service February 01, 2025 Admission HPI Per Admitting Provider 69-year-old female with PMH MS, cecal cancer s/p colectomy, osteoporosis, HTN, isolated episode of atrial fibrillation without recurrence, no longer on anticoagulation, and other problems listed below who was referred to the ED by PCP for hypercalcemia, MOSHE, anemia. Patient has been being treated for Enterococcus UTI over the past 1 month. Urine culture from 12/27 grew Enterococcus and patient completed a course of Bactrim. states that urine remained cloudy and patient was mildly confused therefore urine was repeated on 01/12 still showing Enterococcus. Patient was then placed on a course of Macrobid which she completed last week. reports ongoing cloudy urine and mild confusion and therefore urine was repeated yesterday and patient was evaluated in PCP office today. Labs were obtained showing calcium 13.7, creatinine 2.1, Hgb 9.4. Patient noted to have normal labs in October. Patient offers no other complaints at this time. In the ED, she is hemodynamically stable. Labs show Hgb 9.9, creatinine 2.1, calcium 13.3, alk phos 242. UA suggestive of UTI. Patient was given IVF. Admission Exam Per Admitting Provider Constitutional: WD/WN, vitals as above no acute distress Respiratory: normal respiratory effort, lungs clear to auscultation Cardiovascular: Rate/Rhythm: regular rate and regular rhythm Vessels: normal peripheral pulses Extremities: + edema (+1-2 edema BLE ) Gastrointestinal (Abdomen): Percussion/Palpation: abdomen soft; abdomen nontender Skin: no rashes, warm and dry Neurologic: Generalized weakness, history of MS Psychiatric: Orientation: alert and oriented x 3 Affect: + flat affect Principal Diagnosis Hypercalcemia MOSHE Enterococcus UTI Discharge Exam Constitutional no acute distress Respiratory normal respiratory effort, lungs clear to auscultation Cardiovascular Rate/Rhythm: regular rate and regular rhythm Extremities: + edema ( +1-2 edema BLE) Skin no rashes, warm and dry Neurologic Hx MS Psychiatric Orientation: oriented to person and oriented to place sleeping but arouses easily to verbal stimuli Discharge Data Allergies Allergy/AdvReac Type Severity Reaction Status Date / Time CHEPE Inhibitors Allergy Intermediate SHORTNESS Verified 05/01/23 10:13 OF BREATH Penicillins Allergy Intermediate swelling Verified 05/01/23 10:13 [id number] Reductase Allergy Intermediate SHORTNESS Verified 05/01/23 10:13 Inhibitor OF BREATH [Fnqicbz-Eim-Kra Reductase Inhibitor] Consultations 01/29/25 07:31 Consult Nephrology Routine 01/29/25 08:00 Consult Cardiology Routine 01/31/25 08:20 Consult Infectious Diseases Routine Ordered Studies Laboratory Results WBC 10.29 K/ul (4.8-10.8) 02/01/25 06:42 RBC 2.88 M/uL (4.20-5.40) L 02/01/25 06:42 Hgb 8.8 g/dl (12.0-16.0) L 02/01/25 06:42 Hct 25.3 % (37.0-47.0) L 02/01/25 06:42 MCV 87.8 fL (80.0-100.0) 02/01/25 06:42 MCH 30.6 pg (25.0-34.0) 02/01/25 06:42 MCHC 34.8 g/dL (32.0-36.0) 02/01/25 06:42 RDW Std Deviation 51.0 fL (36.4-46.3) H 02/01/25 06:42 RDW Coeff of Nadira 15.9 % (11.5-14.5) H 02/01/25 06:42 Plt Count 221 K/uL (130-400) 02/01/25 06:42 MPV 10.7 fL (9.4-12.4) 02/01/25 06:42 Immature Gran % (Auto) 4.2 % 01/30/25 08:54 Neut % (Auto) 51.9 % 01/30/25 08:54 Lymph % (Auto) 31.4 % 01/30/25 08:54 Grayson % (Auto) 9.8 % 01/30/25 08:54 Eos % (Auto) 1.8 % 01/30/25 08:54 Baso % (Auto) 0.9 % 01/30/25 08:54 Reticulocyte % (Auto) 2.14 % (0.50-2.00) H 01/29/25 07:43 Neut # (Auto) 3.37 K/uL (1.40-6.50) 01/30/25 08:54 Lymph # (Auto) 2.04 K/uL (1.20-3.40) 01/30/25 08:54 Grayson # (Auto) 0.64 K/uL (0.11-0.59) H 01/30/25 08:54 Eos # (Auto) 0.12 K/uL (0.00-0.50) 01/30/25 08:54 Baso # (Auto) 0.06 K/uL (0.00-0.20) 01/30/25 08:54 Reticulocyte # 0.050 10^6/uL (0.020-0.100) 01/29/25 07:43 Immature Gran # (Auto) 0.27 K/uL (0.01-0.20) H 01/30/25 08:54 Absolute Nucleated RBC 0.02 K/uL (0.00-0.12) 02/01/25 06:42 Nucleated RBC % (auto) 0.2 % 02/01/25 06:42 Polychromasia 1+ 01/30/25 08:54 Peripher Smr Path Cons 01/28/25 16:27 Sodium 140 mmol/L (136-145) 02/01/25 06:42 Potassium 3.7 mmol/L (3.5-5.1) 02/01/25 06:42 Chloride 111 mmol/L (98-107) H 02/01/25 06:42 Carbon Dioxide 21 mmol/L (21-32) 02/01/25 06:42 Anion Gap 8 (3-11) 02/01/25 06:42 BUN 15 mg/dl (6-23) 02/01/25 06:42 Creatinine 1.32 mg/dl (0.6-1.2) H 02/01/25 06:42 Est Cr Clr Drug Dosing 35.2 ml/min 02/01/25 06:42 eGFR 43.16 02/01/25 06:42 BUN/Creatinine Ratio 11.4 (10-20) 02/01/25 06:42 Glucose 96 mg/dl (70-99(Fasting)) 02/01/25 06:42 Lactate 0.4 mmol/L (0.4-2.0) 01/29/25 07:41 Calcium 9.2 mg/dl (8.6-10.3) 02/01/25 06:42 Ionized Calcium 1.74 mmol/L (1.12-1.32) H* 01/28/25 19:24 Magnesium 2.4 mg/dl (1.7-2.4) 01/28/25 16:27 Iron 36 mcg/dl (35-150) 01/28/25 19:24 TIBC 297 mcg/dl (250-450) 01/28/25 19:24 Transferrin 212 mg/dl (200-360) 01/28/25 19:24 Transferrin % Sat 12 % (15-50) L 01/28/25 19:24 Ferritin 169.0 ng/ml (8-388) 01/30/25 08:54 Total Bilirubin 0.3 mg/dl (0.2-1.0) 01/31/25 06:36 AST 23 U/L (13-39) 01/31/25 06:36 ALT 39 U/L (7-52) 01/31/25 06:36 Alkaline Phosphatase 234 U/L (34-104) H 01/31/25 06:36 Lactate Dehydrogenase 107 U/L (86-244) 01/29/25 06:40 Troponin I High Sens 10.3 pg/ml (0-14) 01/29/25 06:40 Total Protein 5.5 gm/dl (6.0-8.3) L 01/31/25 06:36 Albumin 2.7 gm/dl (3.4-5.0) L 01/31/25 06:36 Globulin 2.8 gm/dl (2.5-4.0) 01/31/25 06:36 Albumin/Globulin Ratio 1.0 (0.9-2) 01/31/25 06:36 Vitamin B12 1032 pg/ml (180-914) H 01/29/25 08:02 25-OH Vitamin D Total 70.8 ng/ml (30-100) 01/28/25 19:24 Folate > 22.30 ng/ml (>5.38) 01/29/25 08:02 Procalcitonin 0.31 ng/ml (0-0.5) 01/29/25 07:36 TSH 2.604 uIu/ml (0.300-4.500) 01/29/25 06:40 PTH Intact 18.5 pg/ml (12.0-88.0) 01/28/25 19:24 Urine Color Yellow 01/28/25 18:00 Urine Appearance Turbid (Clear) A 01/28/25 18:00 Urine pH 6.5 (4.5-7.5) 01/28/25 18:00 Ur Specific Frannie 1.014 (1.000-1.030) 01/28/25 18:00 Urine Protein 2+ (Negative) H 01/28/25 18:00 Urine Glucose (UA) Negative (Negative) 01/28/25 18:00 Urine Ketones Negative (Negative) 01/28/25 18:00 Urine Blood 2+ (Negative) H 01/28/25 18:00 Urine Nitrite Negative (Negative) 01/28/25 18:00 Urine Bilirubin Negative (Negative) 01/28/25 18:00 Urine Urobilinogen Negative (Negative) 01/28/25 18:00 Ur Leukocyte Esterase 3+ (Negative) H 01/28/25 18:00 Urine WBC (Auto) >50 /hpf (0-5) H 01/28/25 18:00 Urine RBC (Auto) 0-2 /hpf (0-2) 01/28/25 18:00 U Hyaline Cast (Auto) 6-10 /lpf (0-2) H 01/28/25 18:00 U Epithel Cells (Auto) 0-2 /hpf (0-2) 01/28/25 18:00 Urine Bacteria (Auto) 3+ (None Seen) H 01/28/25 18:00 Ur Random Creatinine 57.5 mg/dl 01/29/25 Unknown Urine Comment 01/28/25 18:00 Blood Type A Positive 01/28/25 19:24 Antibody Screen NEGATIVE 01/28/25 19:24 Impressions Abdomen/Pelvis CT 01/28/25 18:24 Technique: Axial computed tomography images were obtained of the abdomen and pelvis without intravenous contrast. Findings: The liver is overall of normal size, attenuation, and contour with no sign of cirrhosis or significant fatty infiltration. No definite liver mass lesion is seen on this noncontrast study. There are numerous gallstones. There is no definite sign of acute cholecystitis. No bile duct dilatation is noted. The spleen is of normal size. No focal splenic lesion is evident. The pancreas appears normal with no sign of acute or chronic pancreatitis and no mass lesion noted. The pancreatic duct is of normal caliber. The adrenal glands appear unremarkable. There is a 7 mm right renal calculus. No left renal or proximal ureteral calculi are seen. There is no hydronephrosis or perinephric stranding. No definite renal mass lesion is identified. The aorta is of normal caliber. No abdominal adenopathy is seen. The stomach appears normal. There is possible mild wall thickening of the proximal duodenum with mild adjacent soft tissue stranding. There is no sign of small bowel obstruction. The colon appears unremarkable. The appendix appears to have been removed. No free intraperitoneal fluid or air is identified. No distal ureteral or bladder calculi are seen. The bladder is decompressed, containing a Kahn catheter. The iliac arteries are of normal caliber. No pelvic adenopathy is noted. There is a small right pleural effusion. There is mild bilateral lower lobe atelectasis. There is coronary atherosclerosis Mild thoracolumbar degenerative disc disease is seen. No fracture is identified. No focal osseous lesion is seen Impression: 1. Small right pleural effusion and bilateral lung base atelectasis 2. Cholelithiasis without evidence of acute cholecystitis 3. Nonobstructing right renal calculus 4. Apparent mild wall thickening of the proximal duodenum, which could be due to peptic ulcer disease or other inflammation ACT 112: Positive. There are findings on this exam that require communication between the performing entity and the patient following Patient Test Result Information Act ([place] ACT 112) guidelines. Electronically signed by Vinnie Montalvo 01-28-2025 7:47 PM Hospital Course (1) MOSHE (acute kidney injury): Patient is a 69y/o F with PMHx significant for multiple sclerosis with paraplegia, multiple sclerosing hemangiomas of lung, isolated PAF without recurrence in setting of witnessed choking event which resolved with Heimlich maneuver, HTN, senile osteoporosis, history of colon CA s/p surgery and LUIZ who presented to the ED on 01/28/25 via referral by PCP for further evaluation of abnormal outpatient labs completed earlier in the day which revealed hypercalcemia, MOSHE and anemia. OP labs, 01/28/25: serum calcium 13.7, Hgb 9.4, Cr 2.1, BUN 35, eGFR 25. Cr previously 0.9 as of 10/11/24, no prior history of renal disease. Cr improving; Cr 2.14 on presentation >> 1.84 >> 1.57 > 1.2 > 1.3 on 02/01 Nephro consulted Suspect prerenal etiology in setting of recurrent UTI, poor baseline p.o. intake and hypercalcemia. S/p 4L NSS >> then developed hyperNa, hyperCl Nephro recommended transition to D5w + 1/2NSS w/ 20mEq @ 100ccc/hr Na+ 140, K+ 3.7, Chloride 111 on 02/01 (2) Hypercalcemia: Serum Ca previously 10.5 as of 10/11/24. Ca improving; 13.3 on presentation >> 11.1 >> 9.9 > 9.3 > 9.2 on 02/01 Ionized calcium 1.74, 25-OH vit D 70.8, intact PTH and TSH WNL. Urine random Cr 57.5, urine Ca pending at discharge SPEP, UPEP pending as part of MM workup PTHrP pending at discharge No need of Zometa and/or calcitonin at this time Holding Tymlos injection as it can cause hypercalcemia, hypercalciuria. Hold off on multivitamin and vitamin D supplementation. Suspect main trigger being volume depletion which was then worsened by vitamin D supplementation, Tymlos injection. Nephro d/c instructions: -pls schedule hospital f/u appt w/ Dr Barlow in rheum to discuss when /whether to resume Tymlos 2-4 wks after hospital d/c -for neph f/u (to discuss pending labs from hospital stay and review Ca) video visit is OK if pt prefers -suggest Mon/Thurs BMP w/ PCP to ensure no big swings in calcium or renal function -recheck PTH, 25 OHD, phos in 4-6 wks -do not d/c on D supplements or Tymlos (3) Anemia: Hgb previously 13.8 as of 10/09/24. 9.9 on presentation >> 7.6 >> 7.7 > 7.9 > 8.8 on 02/01 Likely hemodilutional component contributing given IVF received Iron, TIBC, transferrin, ferritin and TSAT% WNL. Peripheral smear essentially unremarkable - possible iron deficiency given mildly low transferrin % Started iron supplement Reticulocyte ct 2.14 but again still with no obvious s/sx of bleeding. LDH WNL so doubt hemolytic but haptoglobin still pending for completion (4) UTI (urinary tract infection): History of neurogenic bladder. Now with recurrent UTIs. Has completed 2 rounds of antibiotics in the last month including Macrobid and Bactrim. Previous OP urine cultures growing Enterococcus species with susceptibility to ampicillin, nitrofurantoin and vancomycin. Resistant to tetracycline. Patient with allergy to penicillins, unknown reaction Continued to have ongoing sx including cloudy urine, confusion. Repeat UA in ED with 2+ protein, 3+ LE, >50 WBC and 3+ bacteria. Started on IV daptomycin on admission given history of penicillin allergy and MOSHE. CTAP with nonobstructing right renal calculus. 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 Arousable with tactile and verbal stimuli but hard to keep awake, quickly falls asleep unless continuously aroused. Suspect multifactorial etiology ISO above. (6) Multiple sclerosis: Wheelchair-bound at baseline, paraplegic. Lives at home with , has caregivers available Friday-Friday. Requires assistance with feeds. BUE weakness progressing per . Appreciate DRY CHAIN OPERATOR eval, re: patient coughing with consecutive straw sips of thin liquids per RN DRY CHAIN OPERATOR initially recommending pureed diet, thin liquids with small straw sips OK. Aspiration precautions: feed only when awake and alert, upright 90 degrees, requires assistance with all feeds Speech reevaluated the patient and diet was able to be advanced to regular #Stage 3 Sacral Wound, POA Wound care nurse consulted, note reviewed Follow up with wound care center (7) Mobitz type 2 second degree AV block: Had transient 10 to 20-second episode of second-degree AV block type 2 overnight 01/28-/01/29. No recurrence, remains in NSR on telemetry Repeat EKG on 01/29: sinus rhythm with 1st degree AVB. Cardiology consulted - note reviewed [place] transient block 2/2 untreated JOSR, would recommend OP sleep medicine eval. Recommend Zio patch on DC to assess for high-degree AVB and OP follow-up with cards. (8) Hypothermia: Noted overnight 01/28-01/29, Mati hugger subsequently applied. Temperature improved. Lactate, procalcitonin negative. Unclear etiology at this time. MS lesions in the hypothalamus and related pathways can result in impaired thermoregulation. (9) Abnormal CT of the abdomen: CTAP on admission incidentally noted apparent mild wall thickening of the proximal duodenum. Could be 2/2 PUD or other inflammation. No recent GI complaints. Empirically started on po PPI BID on 01/29/25. (10) Hypertension: Continue MEDICAID BUSINESS ANALYST Toprol-XL. Norvasc previously on hold due to hypotension, BP improved, resumed Norvasc Total Time Total Time Spent Total Time Spent (In Minutes): 45 Discharge Plan Discharge Items Patient Disposition: Home - Home Health Services Reason For Visit: High Calcium Level Discharge Diagnosis: Hypercalcemia ( high calcium level) Renal failure UTI Condition on Discharge: Fair Activity: Resume your previous activity Non-emergency contact: Primary Care Provider Call non-emergency contact if: you have any medication questions, your symptoms worsen, your pain is not controlled and you have a fever Follow-up/Referrals: Heraclio Pemberton MD [Outside Practitioners] - (The office will call you to schedule a follow up appointment. ) Kristina Padgett MD, PhD [Physician] - (The office will call you with a follow up appointment.) Lee Barlow MD [Physician] - (The office will call you for an appointment.) Judd Wise DO [Primary Care Provider] - (Date & Time 02/07/2025 11:40 AM Provider: Verena Desir CRNP [facility]) Diet: Regular Addtl Attending Provider Instructions: You were referred to the hospital by your PCP after outpatient labs showed elevated calcium and abnormal renal function. Elevated calcium level was likely due to your osteoporosis medication, Tymlos and vitamin D supplementation. Dehydration from recent UTI also likely contributing. Renal function and calcium improved with IV fluids. Given abnormal renal function, hypercalcemia, and anemia, workup was sent for multiple myeloma. Results are pending at the time of discharge. You were started on iron supplement for anemia. There was some inflammation of your stomach noted on CT scan, you were started on Protonix twice daily. You received IV antibiotics for your UTI, you will be discharged on a course of oral antibiotics. You will need to have your calcium level and kidney function checked twice weekly ([facility] on Mondays and ) - this will be drawn by home health and your PCP will follow up the results. You need to follow-up with your PCP, nephrology, rheumatology, urology. Wound care instructions: Clean wound on right ischium with normal saline, pat dry with gauze. Apply Aquacel Ag and cover with OPTi foam. Change every other day and as needed if soiled or for excessive drainage. To perianal region and buttocks, apply barrier cream for prevention every 2 hours with repositioning and as needed. Recommend follow-up with outpatient wound center - they will be calling you to follow up and check in. [facility] for wound care [address], [place], [place]. Call for appointment. [phone]. MEDICATION CHANGES STOP - Tymlos, vitamin D supplementation, multivitamin START - Zyvox 600 mg twice daily x 5 days for treatment of UTI START - Protonix 40 mg twice daily START - ferrous sulfate 325 mg twice daily Pending Studies at Discharge: No Stand-Alone Forms: My [facility], Smoking Cessation Medications and DC Order Prescriptions: New linezolid [Zyvox] 600 mg tablet 600 mg PO BID 5 Days Qty: 10 0RF pantoprazole 40 mg Tablet,Delayed Release (Dr/Ec) 40 mg PO BID 30 Days Qty: 60 0RF ferrous sulfate 325 mg (65 mg iron) Tablet,Delayed Release (Dr/Ec) 325 mg PO BIDM 30 Days Qty: 60 0RF Continued metoprolol succinate 25 mg Tablet Extended Release 24 Hr 25 mg PO QAM Qty: 30 1RF diphenhydramine HCl 25 mg Tablet 25 mg PO HS amlodipine 2.5 mg tablet 2.5 mg PO BID solifenacin 10 mg tablet 10 mg PO DAILY Discontinued cholecalciferol (vitamin D3) [Vitamin D3] 25 mcg (1,000 unit) Tablet 1,000 unit PO QAM Centrum Silver Women 8 mg iron-400 mcg-300 mcg Tablet 1 tab PO QAM Tymlos 80 mcg (3,120 mcg/1.56 mL) pen injector 80 mcg SUBCUT DAILY Discharge Orders: Discharge Order (Routine); Ordered 02/01/25 Ordered By: Krystal Sharp Admission Data Admit Date/Time: 01/28/25 17:59 Attending Provider: Suad Florian I. Admit Provider: Knab,Trace F. Primary Care Provider: Judd Wise Other Providers: Trace Benitez; Antonia Estrada; Luis Alberto Keyes; Arcadio Ho; Harris Mejia; Adal Zapien; Jorge Mathew; Alexia Figueredo; Alina Mg; Alexandria Bosch; Ana Paula Abdullahi; Antonia Lim; Leobardo Dasilva; Kevin Cochran; Jolly Echols; Paula Islas; Gisselle Pang; Yuliet Mooney; James Vieira; Teagan Ho; Fabiola Ambrosio; Timo Swift; Brandon Snyder; Calderon Parra; Tavo Iniguez; Taylor Sharp; Tesfaye Robles I.; Missael Vora II; Nanette Cruz; Jorge Bennett; Osman [place]; Emiliana Wall; [facility] Other Interventions: Discharge Summary Assessment (RN) Last Done: 02/01/25 12:45 Supervising Physician Co-Signing Physician Notes Patient seen and examined Agree with findings and plans as detailed by Krystal SAINZ
[2025-02-02 11:41] LABS: Creatinine, 24 hr Urine 0.53 g/24 h (0.50-2.15); Protein, Urine 24 Hour 839 mg/24 h (<150); Ur Albumin % 26 %; Ur Alpha-1-globulin % 9 %; Ur Alpha-2-globulin % 28 %; Ur Beta Globulin % 12 %; Ur Gamma Globulin % 25 %; Ur Protein/Creatinine Rat mg/g 1592 mg/g creat (<150)
[2025-02-03 09:08] LABS: Calcium, Random Urine 30.5 mg/dL (see note)
== END 2025-02-01 14:15 | disposition home health service (06) | DRG 682 ==
LOC: ED 15:33 → SUATTDRO 17:59 → 2W 17:59 → 2S 21:37